=== PATIENT | female | born 1955 | race Caucasian/White ===

== ENCOUNTER 2024-05-16 13:40 | Emergency (ER) | payer MEDICARE, SELFPAY ==
[2024-05-16 13:42] VITALS: BP 104/56
[2024-05-16 14:16] VITALS: BMI 34.2
[2024-05-16 14:19] VITALS: BP 105/58
--- NOTE | 2024-05-16 14:25 | ED.GENMED ---
History of Present Illness
General
Chief Complaint: Swelling
Time Seen by Provider: 05/16/24 14:24
History of Present Illness
History of Present Illness:
HPI: The patient's main reason for visit is lower extremity edema that has been ongoing for months to years but has been worsening. This is now associated with some degree of shortness of breath however she relates some of the shortness of breath
related to a history of asthma. She does not necessarily describe orthopnea. She also reports some worsening abdominal discomfort but currently the abdominal discomfort is minimal. She has never had paracentesis in the past. She no longer drinks
alcohol
EXAM:
GENERAL: Well appearing in no distress
HEENT: Moist oral mucosa
CARDIOVASCULAR: No murmurs, normal heart rate, regular rhythm, No chest wall tenderness
PULMONARY: No respiratory distress, however she does have decreased breath sounds at the bases with some faint rales at the left base
ABDOMEN: Soft with no peritoneal signs, no tenderness, borderline fluid wave on examination
NEUROLOGIC: Excellent strength all extremities, no coordination deficits
PSYCHIATRIC: Appropriate mental status, normal insight and judgement
EXTREMITIES: Nontender, 3+ bilateral lower extremity edema, moves all extremities equally
SKIN: No rash, no lesions
TIME OF INITIAL ENCOUNTER: 2:30 PM
NUMBER AND COMPLEXITY OF PROBLEMS ADDRESSED AT THE ENCOUNTER
� Chronic conditions affecting care: Asthma, cirrhosis, high blood pressure, GERD
� Acute Exacerbation and/or Progression of Chronic Illness: This is an acute problem
� Differential Diagnosis includes: Progression of alcoholic cirrhosis, CHF, anemia, hepatic encephalopathy however the patient does not currently appear encephalopathic on exam
AMOUNT AND/OR COMPLEXITY OF DATA TO BE REVIEWED AND ANALYZED
� I performed an independent evaluation of and my interpretation is:
EKG:
CT:
X-rays: Chest x-ray unremarkable
Laboratory Studies: CBC unremarkable, INR 1.45, potassium 3.2, total bili 2.9 which is higher than recent�total bili in 2017 peaked at 4.9, BNP not consistent with CHF
Other:
� Review of other/old records: In 2017, the patient was admitted for alcoholic cirrhosis and later in the year she had a endoscopy that showed gastric varices
� Clinical information was obtained by an independent historian: I spoke to the daughter at bedside
� Prescriptions/Medications Considered but not given:
� Further testing considered but not performed:
RISK OF COMPLICATIONS AND/OR MORBIDITY OR MORTALITY OF PATIENT MANAGEMENT
� Social determinants of health affecting care: Lives at home
� Discussion with other providers: I discussed case with Dr. Urban and agrees with switching from hydrochlorothiazide to spironolactone and close outpatient follow-up.
� Escalation of care including admission/observation vs risk of discharge considered: The patient has history of alcoholic cirrhosis but is never had a paracentesis in the past. He presents with lower extremity edema along with
some degree of shortness of breath. She does not take furosemide or spironolactone but does take hydrochlorothiazide but did not take it today.
Past History
Past History
ED Past Medical History: Asthma, HTN and Psychiatric (Anxiety with history of anxiety attacks)
ED Past Surgical History: (History of 3 C-sections)
Social History
Tobacco: Non-smoker
Alcohol: None
Drug: None
Personal:
Living: with family
Employment: Employed
Phy Exam
Physical Exam
Physical Exam:
See HPI
Scores
Heart Failure Risk
Heart Failure Risk Score: Not Applicable
Course
Orders/Labs/Results
Orders:
Orders
05/16/24 14:24
Ammonia Urgent
BNP [NT-proBNP] Urgent
Complete Blood Count/With Diff Urgent
Comprehensive Metabolic Panel Urgent
PTT Urgent
Prothrombin Time Urgent
05/16/24 14:32
CR Chest - 2 Views Urgent
Comment:
Reason For Exam: sob
US Abdomen Complete/Upper Urgent
Comment:
Reason For Exam: swelling cirrhosis, eval liver and for ascites
05/16/24 16:10
Potassium Chloride Powder [Klor-Con] 40 meq PO NOW STA
05/16/24 16:29
Spironolactone [Aldactone] 25 mg PO NOW STA
Abnormal Lab Results
05/16/24
14:24
RBC 3.76 L 10^6/uL
(4.20-5.40)
Hct 35.8 L %
(37.0-47.0)
MCH 33.2 H pg
(27.0-31.0)
Absolute Monos (auto) 1.1 H 10^3/uL
(0.1-0.6)
Lymphocytes % 17.5 L %
(20.5-51.1)
Monocytes % 14.7 H %
(1.7-9.3)
PT 17.4 H Sec
(11.4-14.6)
APTT 37.7 H Sec
(23.4-35.0)
Potassium 3.2 L mmol/L
(3.5-5.1)
Carbon Dioxide 33 H mmol/L
(22-30)
Glucose 113 H mg/dl
(70-99)
Total Bilirubin 2.9 H mg/dl
(0.2-1.3)
AST 93 H U/L
(14-36)
Ammonia 82 H umol/L
(9-30)
Albumin 3.0 L g/dl
(3.5-5.0)
05/16/24 14:24
05/16/24 14:24
Vital Signs
Initial and Last Documented VS:
Initial Vital Signs
Temp Pulse Resp BP Pulse Ox
99.1 F 80 18 104/56 97
05/16/24 13:42 05/16/24 13:42 05/16/24 13:42 05/16/24 13:42 05/16/24 13:42
Last Documented Vital Signs
Temp Pulse Resp BP Pulse Ox
99.1 F 73 16 122/59 97
05/16/24 13:42 05/16/24 15:45 05/16/24 15:45 05/16/24 15:42 05/16/24 15:45
*Critical Care Note
Total Time (30-74mins, 75-104mins- exclusive of procedures): Not Applicable
ED Attending Note
-
Portions of this chart may have been created with voice recognition software.� Occasional wrong word or��sound alike� substitutions may have occurred due to the inherent limitations of voice recognition software.
Discharge Plan
Departure
Patient Disposition: Home (Routine Discharge)
Date of Disposition: 05/16/24
Time of Disposition: 16:30
Patient with high blood pressure during this ER visit?: Yes
Discharge Problem:
Cirrhosis
Instructions: Cirrhosis, Dependent Edema (DC), Diet for Cirrhosis
Prescriptions:
New
spironolactone 25 mg tablet
25 mg PO DAILY Qty: 30 0RF
No Action
famotidine 20 MG tablet
20 mg PO DAILYPRN PRN (Reason: indigestion)
hydrochlorothiazide 25 MG tablet
25 mg PO DAILY
albuterol sulfate 1 PUFF HFA aerosol inhaler
2 puff inhalation R Q4HPRN PRN (Reason: SOB)
loratadine 10 MG tablet
10 mg PO DAILYPRN PRN (Reason: allergies)
thiamine HCl (vitamin B1) 100 MG tablet
100 mg PO DAILY 0RF
folic acid 0.4 MG tablet
0.4 mg PO DAILY 0RF
nadolol 20 MG tablet
20 mg PO DAILY
amoxicillin-pot clavulanate 1 TABLET tablet
1 tab PO Q12 5 Days Qty: 10 0RF
Referrals:
Marilu Ennis CRNP [Family Provider] -
Loc Camara MD [Active] - Follow up in 2-3 days
Activity Restrictions/Additional Instructions:
The total bilirubin today is 2.9 which is higher than it was in 202. However it is not as high as it was when it was over 4 in 2017. Your ammonia level is high at 82 however you do not appear to be confused. Your albumin level is low (protein
level). Your INR is 1.45 which indicates worsening liver function. I spoke to Dr. Urban, the on-call GI doctor�please plan appointment to see Dr. Camara. Stop the hydrochlorothiazide and start spironolactone.
Interventions
Interventions:
*Risk Screen - Suicide Last Done: 05/16/24 14:16
*General Assessment Last Done: 05/16/24 14:16
*Neglect/Abuse Screening Last Done: 05/16/24 14:16
ED- Fall Risk Assessment Last Done: 05/16/24 14:19
*ED COVID-19 Vaccine History Last Done: 05/16/24 14:16
ED- Cardiac Assessment Last Done: 05/16/24 15:55
ED- Pulmonary Assessment Last Done: 05/16/24 15:55
ED-Skin Assessment Last Done: 05/16/24 15:55
Discharge Date and Time
Print Language: YORUBA
[2024-05-16 14:38] LABS: % Basophils 0.9 % (0-2); % Eosinophils 5.5 % (0-6); % Immature Granulocytes 0.4 % (0-0.5); % Lymphocytes 17.5 % (20.5-51.1); % Monocytes 14.7 % (1.7-9.3); Absolute Basophils 0.1 10^3/uL (0-0.2); Absolute Eosinophils 0.4 10^3/uL (0-0.7); Absolute Lymphocytes 1.4 10^3/uL (1.2-3.4); Absolute Monocytes 1.1 10^3/uL (0.1-0.6); Absolute Neutrophils 4.7 10^3/uL (1.4-6.5); Hematocrit 35.8 % (37.0-47.0); Hemoglobin 12.5 g/dL (12.0-16.0); Mean Corp Hgb Conc. 34.9 g/dL (33.0-37.0); Mean Corpuscular Hgb 33.2 pg (27.0-31.0); Mean Corpuscular Volume 95.2 fL (81.0-99.0); Mean Platelet Volume 9.4 fL (7.4-10.4); Nucleated Red Blood Cells % 0 %; Platelet Count 146 10^3/uL (130-400); Red Blood Cell Count 3.76 10^6/uL (4.20-5.40); Red Cell Dist. Width 13.1 % (11.5-14.5); White Blood Cell Count 7.8 10^3/uL (4.8-10.8)
[2024-05-16 14:48] LABS: INR 1.45; PT 17.4 Sec (11.4-14.6)
[2024-05-16 14:49] LABS: APTT 37.7 Sec (23.4-35.0)
[2024-05-16 14:51] LABS: Ammonia 82 umol/L (9-30)
[2024-05-16 14:52] LABS: ALT (SGPT) 34 U/L (0-35); AST (SGOT) 93 U/L (14-36); Alkaline Phosphatase 120 U/L (38-126); Blood Urea Nitrogen 12 mg/dl (7-17); Calcium 8.7 mg/dl (8.4-10.2); Carbon Dioxide 33 mmol/L (22-30); Chloride 98 mmol/L (98-107); Estimated Creatinine Clearance 91 ml/min; Glucose 113 mg/dl (70-99); Potassium 3.2 mmol/L (3.5-5.1); Sodium 137 mmol/L (135-145); Total Bilirubin 2.9 mg/dl (0.2-1.3); Total Protein 6.7 g/dl (6.3-8.2); eGFR > 60.00
[2024-05-16 15:00] LABS: NT-proBNP 436 pg/ml
[2024-05-16 15:42] VITALS: BP 122/59
[2024-05-16 16:00] VITALS: BP 115/52
[2024-05-16] MEDS: ALDACTONE 25 MG PO (16:56)
[2024-05-16] MEDS: KLOR-CON 40 MEQ PO (16:57)
== END 2024-05-16 17:05 | disposition home or self-care (01) ==
LOC: EMR 13:40
PROVIDERS: Student in an Organized Health Care Education/Training Program; EMERGENCY PHYSICIAN Emergency Medicine; FAMILY PHYSICIAN Nurse Practitioner Family
DX: K70.31 Alcoholic cirrhosis of liver with ascites (principal); I10 Essential (primary) hypertension
CPT/HCPCS: 99285; 71046; 76700; 80053; 82140; 83880; 85025; 85610; 85730

== ENCOUNTER 2024-06-19 13:42 | Inpatient (IN) | payer MEDICARE, SELFPAY ==
[2024-06-19] VITALS (44 sets, daily range): BP systolic 69–139; BP diastolic 36–74; BMI 35.1
[2024-06-19 09:53] LABS: % Basophils 0.7 % (0-2); % Eosinophils 2.6 % (0-6); % Immature Granulocytes 0.9 % (0-0.5); % Monocytes 10.4 % (1.7-9.3); % Neutrophils 65.4 % (42.2-75.2); Absolute Eosinophils 0.2 10^3/uL (0-0.7); Absolute Immature Granulocytes 0.1 10^3/uL (0-0.05); Absolute Lymphocytes 1.2 10^3/uL (1.2-3.4); Absolute Monocytes 0.6 10^3/uL (0.1-0.6); Absolute Neutrophils 3.8 10^3/uL (1.4-6.5); Hematocrit 32.2 % (37.0-47.0); Hemoglobin 11.4 g/dL (12.0-16.0); Mean Corp Hgb Conc. 35.4 g/dL (33.0-37.0); Mean Corpuscular Hgb 31.3 pg (27.0-31.0); Mean Corpuscular Volume 88.5 fL (81.0-99.0); Mean Platelet Volume 9.2 fL (7.4-10.4); Nucleated Red Blood Cells % 0 %; Platelet Count 246 10^3/uL (130-400); Red Blood Cell Count 3.64 10^6/uL (4.20-5.40); Red Cell Dist. Width 14.6 % (11.5-14.5); White Blood Cell Count 5.9 10^3/uL (4.8-10.8)
[2024-06-19 10:05] LABS: Ammonia 22 umol/L (9-30)
[2024-06-19 10:06] LABS: ALT (SGPT) 24 U/L (0-35); AST (SGOT) 49 U/L (14-36); Albumin 2.6 g/dl (3.5-5.0); Alkaline Phosphatase 102 U/L (38-126); Blood Urea Nitrogen 18 mg/dl (7-17); Calcium 8.2 mg/dl (8.4-10.2); Carbon Dioxide 24 mmol/L (22-30); Chloride 93 mmol/L (98-107); Estimated Creatinine Clearance 69 ml/min; Glucose 96 mg/dl (70-99); Potassium 4.9 mmol/L (3.5-5.1); Sodium 129 mmol/L (135-145); Total Bilirubin 5.4 mg/dl (0.2-1.3); Total Protein 6.7 g/dl (6.3-8.2); eGFR > 60.00
[2024-06-19 10:20] LABS: Lipase 27 U/L (23-300)
--- NOTE | 2024-06-19 10:35 | EDRN ---
With help of Tika Nguyễn pt repositioned higher on stretcher, tachypneic w/ POX 92% on RA. Tika Nguyễn PRODUCTION LINE TECHNICIAN requested pt to be placed on oxygen at 2lpm at this time.
[2024-06-19] MEDS: DILAUDID 0.5 MG IV (10:42)
--- NOTE | 2024-06-19 10:45 | EDRN ---
Pt placed on bedpan to void at this time.
--- NOTE | 2024-06-19 12:08 | ED.GENMED ---
History of Present Illness
General
Chief Complaint: Abdominal Pain
Source: patient and family
Exam Limitations: none
Time Seen by Provider: 06/19/24 09:33
Nursing documentation reviewed up to this point in time: agreed with
History of Present Illness
History of Present Illness:
Patient with history of liver cirrhosis, presents to ED secondary to worsening abdominal pain x 3 weeks, worse over the past 24 hours. Patient has had abdominal swelling, which also has worsened despite taking medications as an outpatient. Denies
fever or chills. Abdominal pain described as pressure, nonradiating, without any alleviating or exacerbating factors. Denies nausea, vomiting, or diarrhea. Denies recent change in medications or diet. Denies trauma. Patient also reports ongoing
leg swelling as well as shortness of breath.
Past History
Past History
ED Past Medical History: Asthma, HTN and Psychiatric (Anxiety with history of anxiety attacks)
ED Past Surgical History: (History of 3 C-sections)
Social History
Tobacco: Non-smoker
Alcohol: None
Drug: None
Personal:
Living: with family
Employment: Employed
Review of Systems
Review of Systems
Allergies reviewed?: Yes
Constitutional: Reports no symptoms; Denies fever
EENT: Reports no symptoms
Respiratory: Reports trouble breathing; Denies cough
Cardiac: Reports no symptoms
ABD/GI: Reports abdominal pain; Denies nausea, vomiting or diarrhea
Musculoskeletal: Reports edema
Skin: Reports no symptoms
Neurological: Reports no symptoms
Phy Exam
Physical Exam
Physical Exam:
Physical Exam
General: mild distress, not acutely ill. obese. afebrile.
Head: nc/at. eomi
Neck: supple. no meningeal signs.
Heart: s1/s2 regular rate and rhythm, no murmur. equal radial pulses.
Lungs: no acute respiratory distress. clear bilaterally
Abdomen: normal bowel sounds. diffuse swelling with mild tenderness to palpation. no rebound/guarding.
Neuro: alert and oriented. no focal neurological deficits
Skin: no rash
Psychiatric: well kept. interactive and cooperative
Extremities: LE edema, nonpitting. no calf tenderness.
Course
Orders/Labs/Results
Orders:
Orders
06/19/24 09:40
PT/INR [Prothrombin Time] Urgent
06/19/24 09:42
Ammonia Urgent
Complete Blood Count/With Diff Urgent
Comprehensive Metabolic Panel Urgent
Lipase Urgent
06/19/24 09:53
HYDROmorphone [Dilaudid] 0.5 mg IV NOW STA
06/19/24 10:53
CT Abd/pelvis W Iv Cont Urgent
Comment:
Reason For Exam: LLQ pain
06/19/24 12:07
Piperacillin/Tazo 3.375 Gram [Zosyn] 3.375 gram in 50 ml IV NOW
06/19/24 12:25
0.9% Sodium Chloride 250 ml [Nss] 250 ml IV BOLUS
06/19/24 12:53
GASTROINTESTINAL CONSULT Routine
Consulting Provider: Rohit Pineda
Was physician already notified: Yes
06/19/24 13:00
Admit/Transfer Patient As Directed
Co-Sign Provider:
Level of Care: Inpatient admission
Assign to:: ICU
Physician / Group: Htay
Diagnosis: Ascites, Colitis vs SBP
Reason for Hospitalization: IV abx, Paracentesis, GI Consult
Expected length of stay greater than two midnights?: Yes
ELOS- Estimated Length of Stay in days: 3
I certify the patient meets the requirements for IP care: Yes
PRN Pain Medication Management As Directed
May give lesser potent ordered pain med per pt: Yes
preference::
Protocol:: Medication orders for pain may be administered in a
manner that supports deferring to patient preference
when the pt is:
- Requesting an ordered lesser potent pain medication.
Least to most potent pain medications are defined
as: acetaminophen < NSAID < tramadol < opioids
(morphine, oxycodone, hydromorphone).
- Requesting a lesser dose of the same medication IF
ORDERED.
- Requesting a less intrusive route of administration
if both routes are prescribed by the provider (PO <
IV).
06/19/24 13:01
Urinalysis Routine
Urine Osmolality Random [Osmolality, Random Urine] Urgent
Urine Sodium Urgent
06/19/24 13:03
Code Status As Directed
Resuscitation Status: Full Code
06/19/24 Dinner
Full Liquids
Fluid Restriction: 1440 mL/day (48 oz)
06/19/24 17:14
HYDROmorphone [Dilaudid] 0.25 mg IV Q3HPRN PRN
Ipratropium/Albuterol Sulfate [Duoneb] 3 ml INH R Q4HPRN PRN
Ondansetron Injectable [Zofran] 4 mg IV Q6HPRN PRN
Piperacillin/Tazo 3.375 Gram [Zosyn] 3.375 gram in 50 ml IV Q6H
06/19/24 17:14
IRAD CONSULT Routine
Consulting Provider: Issa Howard
Was physician already notified: Yes
Reason for Consult/Procedure: Paracentesis
Acknowledgement that appropriate orders are entered: Yes
Body Fluid Albumin Routine
Fluid Source: Peritoneal (Ascites)
Body Fluid Amylase Routine
Fluid Source: Peritoneal (Ascites)
Body Fluid Cell Count Routine
What is the Body Fluid: peritoneal fluid
Comment: post procedure
Body Fluid LDH Routine
Fluid Source: Peritoneal (Ascites)
Body Fluid Protein Routine
Fluid Source: Peritoneal (Ascites)
Fluid Culture with Gram Stain Routine
INDRA Source: Peritoneal Fluid
Specimen Description:
Comment: Post Procedure
Activity As Directed
Activity Level: Out of Bed- Chair
Foot pumps [Venous Foot Pumps] As Directed
Location: Bilateral feet
I&O [Intake/ Output] As Directed
Frequency: q12h
Notify MD As Directed
Notify physician if: Notify GI provider solution engineer of volume removed when paracentesis complete.
Vital Signs As Directed
Frequency: Per unit guidelines
Weight As Directed
Frequency: Daily
IRAD Cytology Routine
Source: Peritoneal Fluid
Clinical Impression: Cirrhosis
Ot Eval And Treat Routine
Pt Eval And Treat Routine
Activity Level: Out of Bed-Early Mobility
DX Deep Vein Thrombosis Video Routine
06/20/24 06:00
Ammonia IN AM
Complete Blood Count/No Diff IN AM
Comprehensive Metabolic Panel IN AM
Magnesium IN AM
06/20/24 08:00
Pantoprazole [Protonix] 40 mg PO DAILY
Spironolactone [Aldactone] 50 mg PO DAILY
smtxiyebsbz-somazdkpr-siqkkptn [Trelegy Ellipta] 1 inh INH DAILY
lactulose 10 grams PO DAILY
06/22/24 11:00
DC Protocol for Telemetry ONCE
Abnormal Lab Results
06/19/24 06/19/24
09:40 09:42
RBC 3.64 L 10^6/uL
(4.20-5.40)
Hgb 11.4 L g/dL
(12.0-16.0)
Hct 32.2 L %
(37.0-47.0)
MCH 31.3 H pg
(27.0-31.0)
RDW 14.6 H %
(11.5-14.5)
Abs Immat Gran (auto) 0.1 H 10^3/uL
(0-0.05)
Immature Gran % 0.9 H %
(0-0.5)
Lymphocytes % 20.0 L %
(20.5-51.1)
Monocytes % 10.4 H %
(1.7-9.3)
PT 20.9 H Sec
(11.4-14.6)
Sodium 129 L mmol/L
(135-145)
Chloride 93 L mmol/L
(98-107)
BUN 18 H mg/dl
(7-17)
Calcium 8.2 L mg/dl
(8.4-10.2)
Total Bilirubin 5.4 H mg/dl
(0.2-1.3)
AST 49 H U/L
(14-36)
Albumin 2.6 L g/dl
(3.5-5.0)
06/19/24 09:42
06/19/24 09:42
Vital Signs
Initial and Last Documented VS:
Initial Vital Signs
Temp Pulse Resp BP Pulse Ox
98.3 F 93 20 139/57 93
06/19/24 09:34 06/19/24 09:34 06/19/24 09:34 06/19/24 09:34 06/19/24 09:34
Last Documented Vital Signs
Temp Pulse Resp BP Pulse Ox
99.7 F 89 16 96/74 98
06/19/24 17:16 06/19/24 16:45 06/19/24 16:45 06/19/24 16:45 06/19/24 16:45
MDM/Problems Addressed
MDM/Problems Addressed:
CT abdomen pelvis report reviewed, concerning for colitis along with ventral hernia, as well as ascites. Patient will be given IV antibiotic, IV Zosyn, but may benefit from diagnostic versus therapeutic paracentesis.
During treatment in ED, patient noted to become hypotensive, with minimal improvement after IV fluid bolus administration. As such, after discussion with admitting hospitalist, decision made to start patient on Levophed infusion.
Critical care statement: A total of 40 minutes of critical care time was provided for this patient. This includes management of unstable vital signs, evaluation of the patient at bedside, reviewing the patient's pertinent medical records, review of
old EKGs and review of pertinent medical records. This time with separate from time utilized to perform the aforementioned documented procedures
*Critical Care Note
Total Time (30-74mins, 75-104mins- exclusive of procedures): 40 min
ED Attending Note
-
Portions of this chart may have been created with voice recognition software.� Occasional wrong word or��sound alike� substitutions may have occurred due to the inherent limitations of voice recognition software.
Discharge Plan
Departure
Patient Disposition: Admit
Date of Disposition: 06/19/24
Time of Disposition: 12:11
Admit to: IMU
Presentation/result/management discussed w/ accepting MD/DO: Hospitalist
Condition: Fair
Discharge Problem:
Colitis, Ventral hernia, Ascites
Interventions
Interventions:
*Risk Screen - Suicide Last Done: 06/19/24 09:34
*General Assessment Last Done: 06/19/24 09:34
*Neglect/Abuse Screening Last Done: 06/19/24 09:34
ED- Fall Risk Assessment Last Done: 06/19/24 09:34
*ED COVID-19 Vaccine History Last Done: 06/19/24 09:34
*Nursing Disposition Last Done: 06/19/24 17:07
BN-Rlzewj-Iwqdxmgzlp Assessment Last Done: 06/19/24 09:34
Discharge Date and Time
Discharge Date/Time: 06/19/24 17:07
[2024-06-19] MEDS: ZOSYN 50 IV ×2 (12:22→19:58)
[2024-06-19] MEDS: NSS 250 IV ×2 (12:28→13:47)
--- NOTE | 2024-06-19 13:00 | HPS.HSE ---
Addendum entered and electronically signed by Glynn Viveros MD 06/19/24 14:13:
I saw and examined the patient.
The LOGISTICS TECHNICIAN or PA's note was reviewed and I agree with the note.
Comment:
refer to update note
Original Note:
Family Physician
-
Family Physician: Elbert Sanches
Chief Complaint
-
Abdominal Pain
History of Present Illness
Patient is a 69 y/o female past medical history cirrhosis who present with worsening abdominal pain. Patient is sedated during my evaluation following Dilaudid given in the emergency department. Additional history is obtained from patient's
family at the bedside. Patient has been complaining of increasing lower extremity edema, and abdominal swelling with some abdominal pain over the past few months. She was seen at the ED about a month ago, and since then she has seen her GI and
Liver specialists. In the interim she has been started on Lactulose for possible hepatic encephalopathy given intermittent confusion, and Lasix for increasing swelling. Family has noted improvement in the lower extremity edema with the Lasix.
Patient noted significant worsening of her abdominal pain to the point she was unable to ambulate today, and family convinced her to come to the emergency department for evaluation. Family has noted decreased appetite, and notes she appears short of
breath on occasion. There are no reports of fevers, sweats or chills.
Medical History
Past Medical History
Past Medical History: Reports Other
Additional Past Medical History:
Alcoholic Cirrhosis
Gastric Varies / Portal Hypertensive Gastropathy
Asthma
Past Surgical History: Reports
Social History
Tobacco: Former Smoker
Alcohol: Former (Quit in 2017 when she was diagnosed with cirrhosis)
Family History
Family History: Not pertinent
Allergies / Home Medications
Allergies reflects when Allergies were last updated in [facility].
Home Medications with original date entered in [facility]
Allergy/Medication List:
Allergies
Allergy/AdvReac Type Severity Reaction Status Date / Time
codeine Allergy Itching Verified 06/19/24 09:40
latex Allergy Itching Verified 06/19/24 09:40
morphine Allergy Itching Verified 06/19/24 09:40
Home Medications
albuterol sulfate 90 mcg/actuation aerosol inhaler 2 puff inhalation R Q4HPRN PRN SOB 02/10/17
nadolol 20 mg tablet 20 mg PO DAILY 04/11/19
fluticasone fur. 200 mcg-umeclid 62.5 mcg-vilant 25 mcg inhalat.powder (Trelegy Ellipta) 1 inh inhalation DAILY 06/19/24
furosemide 20 mg tablet 20 mg PO DAILY 06/19/24
lactulose 10 gram/15 mL (15 mL) oral solution 10 g PO DAILY 06/19/24
spironolactone 50 mg tablet 50 mg PO DAILY 06/19/24
Review of Systems
-
Unable to obtain full review of systems at this time due to: Patient Non-verbal
Physical Exam
Vital Signs
Vital Signs
Temp Pulse Resp BP Pulse Ox
98.3 F 93 12 93/55 98
06/19/24 09:34 06/19/24 12:20 06/19/24 12:20 06/19/24 12:04 06/19/24 12:20
Physical Exam
General: Well Developed and Well Nourished
HEENT: Moist mucous membranes, Oxygen (Nasal Cannula) and Other (Icteric)
Respiratory: Clear and Non Labored Respirations
Cardiac: S1/S2 and Regular Rhythm; No Tachycardia
GI: Soft, Tender (Mild throughout without rebound or guarding (Patient given Dilaudid just prior to my evaluation)) and Other (Significant Hepatosplenomegaly )
Musculoskeletal: No Clubbing, No Cyanosis and Other (+4 pitting edema bilateral lower extremity)
Skin: Warm, Dry and Jaundice
Neuro: Sedated (Patient opens eyes briefly to name; Moves upper extremities but unable to participate in neurologic evaluation following Dilaudid administration)
Psych: Calm
Laboratory Results
-
06/19/24 09:42
06/19/24 09:42
Laboratory Results
Total Bilirubin 5.4 mg/dl (0.2-1.3) H 06/19/24 09:42
AST 49 U/L (14-36) H 06/19/24 09:42
ALT 24 U/L (0-35) 06/19/24 09:42
Alkaline Phosphatase 102 U/L (38-126) 06/19/24 09:42
Lipase 27 U/L (23-300) 06/19/24 09:42
Abd/Pelvis CT Scan:
Cirrhotic morphology with evidence of portal hypertension and moderate volume ascites.
Cholelithiasis. There is gallbladder wall thickening which is likely secondary to chronic liver disease.
Colonic diverticulosis. There is questionable wall thickening along the sigmoid colon and proximal ascending colon which may represent colitis.
Complex ventral hernia containing fat and ascites.
Data Reviewed
-
CT Scan: Report Reviewed by me
Lab Data: Labs Reviewed by me
Impression/Plan
-
Worsening Abdominal Pain and Distention, possible Spontaneous Bacterial Peritonitis
-Consult GI
-Consult IR for Paracentesis
-Continue Zosyn
Hyponatremia, suspect hypervolemic hyponatremia
-Continue fluid restriction
-Check urine sodium and urine osmo
-Hold Lasix for now in setting of low blood pressure
-Continue spironolactone
Alcohol Cirrhosis
-MELD-Na has increased from 15 last month to 25 today
-Family notes they have began discussions about possible transplant
Hepatic Encephalopathy
-Ammonia level currently within normal range
-Continue Lactulose
Gastric Varies / Portal Hypertensive Gastropathy
-Hold nadolol due to low blood pressure
-Continue Protonix
DVT proph: SCDs
Code Status: Full Code
[2024-06-19 13:06] LABS: INR 1.82; PT 20.9 Sec (11.4-14.6)
--- NOTE | 2024-06-19 13:12 | W.PN.UPDATE ---
Addendum entered and electronically signed by Glynn Viveros MD 06/19/24 13:36:
INR 1.8 = MELD 25 ( prior MELD�was 16)
NEG flapping tremor: NH3 23
- without evidence of hepatic encephalopathy but at risk
- coagulopathy is significant for synthetic dysfunction
Original Note:
Update Note
Progress Note Update
This note serves as an addendum to the H&P by [employer]rix architect SIOBHAN Nallely WALTERS,
HPI
69F HX Hx alcoholic liver cirrhosis with portal hypertensive gastropathy presenting with worsening abd pain w abdominal swelling
Reviewed VS: Afebrile . Hypotensive 93/55 HR low 90s POx 93 on RA. 97 on 2L NCO2
PE
Gen: sleepy s/p Dilaudid , arousable, not toxic
HEENT: icteric sclera
Neck: supple
Lungs: clear
Cor: Hypotensive , RRR S1 S2
Abdomen: tendr mildly distended abdomen, NRT, NG
REGENERATION OPERATOR: sleepy
MS: b/l Dede edema plus 4
Psych: limited s/p Dilaudid
Data
Nl WCC
Hgb 11.5; 12,5 on 05/16/24
Nl platelet
Na 129. 137 on 05/16/24
Cl 93
BUN 18
nl eGFR
NH3 22
CT Abd/pelvis W Iv Cont
1.Cirrhotic morphology with evidence of portal hypertension and moderate volume ascites.
2. Cholelithiasis. There is gallbladder wall thickening which is likely secondary to chronic liver disease.
3. Colonic diverticulosis. There is questionable wall thickening along the sigmoid colon and proximal ascending colon which may represent colitis.
4. Complex ventral hernia containing fat and ascites.
05/30/22 EGD
- Normal esophagus.
- Type 1 isolated gastric varices (IGV1, varices located in the fundus), without bleeding.
- Portal hypertensive gastropathy.
- Normal examined duodenum.
- No specimens collected.
ASSESSMENT & PLAN
Worsening abdominal pain and abdominal distension
DDX: concerning for SBP with worsening symptomatic ascites,
CT AP: possible colitis with ventral hernia.
Underlying Hx alcoholic liver cirrhosis with Portal hypertensive gastropathy.
Known Type 1 isolated gastric varices (IGV1, varices located in the fundus), without bleeding.
- cont. empiric Zosyn for questionable colitis at risk for SBP
- cont Spironolactone and nadolol
- c/w CORONER TECHNICIAN lactulose -switch to daily in place of PRN
- clear diet for now
- repeat NH3 level in AM
- Dx-tic Rxtic paracentesis
- GI consult
- IR consult
Hypotension s/p 0.25 of Dilaudid did
- Hold Frusemide and Nadolol
- c/w Spironolactone with hold index forSBP < 100
- f/u BP
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
Fluid overload due to cirrhosis
- Hold Frusemide
- cont Spironolactone with hold index for SBP < 100
- FR 48 Oz
- trend nA
Complex ventral hernia containing fat and ascites.
DVT Px: SCD
Code: full code
IMU
[2024-06-19] MEDS: LEVOPHED 250 IV ×4 (14:19→23:50)
--- NOTE | 2024-06-19 17:51 | CON.INTV ---
Consultation
Consultation Request
Date/Time Consultation Requested: 06/19/2024
Date/Time Consultation Performed: 06/19/2024
Requesting Provider: Dr. Viveros
Performing Provider: Dr. Theron Lock
Reason for Consultation: Septic shock
Medical History
-
History of Present Illness:
69-year-old woman with past medical history significant for cirrhosis who presented with worsening abdominal pain. She did receive some narcotics in the emergency room due to her pain. Patient has been complaining of worsening lower extremity
edema and abdominal swelling over the past few months.
She follows up with GI and hematology.
Recently started on diuretics with some improvement in lower extremity swelling.
Presented to the emergency room today at the insistence of the family.
Patient developed hypotension, unresponsive to IV fluid resuscitation. On vasopressors at high doses.
Past Medical History
Past Medical History: Other (See assessment and plan )
Social History
Tobacco: Former Smoker
Alcohol: Former (Quit in 2016 when she was diagnosed with cirrhosis)
Family History
Family History: Unable to Obtain
Allergies / Home Medications
Allergies
Allergy/AdvReac Type Severity Reaction Status Date / Time
codeine Allergy Itching Verified 06/19/24 09:40
latex Allergy Itching Verified 06/19/24 09:40
morphine Allergy Itching Verified 06/19/24 09:40
Home Medications
�Medication �Instructions �Recorded �Confirmed �Last Taken �Type
albuterol sulfate 90 mcg/actuation 2 puff inhalation R Q4HPRN PRN SOB 02/10/17 06/19/24 04/10/19 History
aerosol inhaler
nadolol 20 mg tablet 20 mg PO DAILY CIRRHOSIS 04/11/19 06/19/24 04/10/19 History
fluticasone fur. 200 mcg-umeclid 1 inh inhalation DAILY 06/19/24 06/19/24 Unknown History
62.5 mcg-vilant 25 mcg Lung/Breathing Issues
inhalat.powder (Trelegy Ellipta)
furosemide 20 mg tablet 20 mg PO DAILY Fluid 06/19/24 06/19/24 Unknown History
Retention/Swelling
lactulose 10 gram/15 mL (15 mL) 10 g PO DAILY CIRRHOSIS 06/19/24 06/19/24 Unknown History
oral solution
omeprazole 20 mg tablet,delayed 20 mg PO DAILY Gastrointestinal 06/19/24 06/19/24 Unknown History
release Issue
spironolactone 50 mg tablet 50 mg PO DAILY Fluid 06/19/24 06/19/24 Unknown History
Retention/Swelling
Review of Systems
-
Unable to Obtain full review of systems at this time due to: Acuity
Vitals / Labs / Diagnostic Testing
Vital Signs
Temp Pulse Resp BP Pulse Ox
99.7 F 89 16 96/74 98
06/19/24 17:16 06/19/24 16:45 06/19/24 16:45 06/19/24 16:45 06/19/24 16:45
Lab Data
06/19/24 09:42
06/19/24 09:42
Laboratory Results
06/19/24
09:40
PT 20.9 H
INR 1.82
Diagnostic Testing:
Physical Exam
-
HEENT: Normocephalic
Cardiovascular: S1/S2 and Peripheral Edema (2+)
Respiratory: Non-Labored Respirations
GI: Distended (Firm, ascites, ventral hernia not tender) and Tender (Mildly tender)
Neurology: Other (Somnolent )
Skin: Dry and Other
General: Respiratory Distress (Mild)
Assessment
-
Septic shock
Worsening abdominal distention/abdominal pain
Possible spontaneous bacterial peritonitis vs ? colitis
CT abdomen pelvis 06/19/2024:Cirrhotic morphology with evidence of portal hypertension and moderate volume ascites.
Cholelithiasis. There is gallbladder wall thickening which is likely secondary to chronic liver disease.
Colonic diverticulosis. There is questionable wall thickening along the sigmoid colon and proximal ascending colon which may represent colitis.
Complex ventral hernia containing fat and ascites.
Hyponatremia
Conditions present prior admission:
Alcoholic cirrhosis since 2017
Portal hypertensive gastropathy
Hypervolemic hyponatremia
Ventral hernia history of asthma only follows up with primary care
Former alcohol use quit in 2017
Assessment and plan:
Patient critically ill, requiring vasopressor, somewhat somnolent after receiving Dilaudid in the emergency room for abdominal pain.
-
Shock: Multiple mechanism distributive/septic
Suspect spontaneous bacterial peritonitis
Doubt colitis-lack of diarrhea.
Currently on Levophed high doses
Will start Szr-Cjqeprnoux-qyrr try to transition to this pressor.
Obtain cortisol level
1 L of LR will be given now.
Place a Leger
Will place a PICC line
Arterial line may be needed
if remains hypotensive echocardiogram will be necessary.
-
Zosyn
Eventual paracentesis
Blood cultures
UA
Urine culture
Follow fever curve and leukocytosis
-
N.p.o.
Head of bed elevation
Hold diuretics
If able to tolerate orals restart lactulose tomorrow.
Continue PPI
-
Alcoholic liver cirrhosis-GI has been consulted
So far no evidence for hepatic encephalopathy
Somnolent but following commands. Slightly confused perhaps from ongoing infection as well as Dilaudid received in the emergency room.
Try to avoid sedatives.
-
History of asthma-not bronchospastic on exam
Shortness of breath likely related to worsening ascites.
As needed nebulizers for now
Okay to restart her inhalers if able to perform maneuver.
-
DVT prophylaxis-subcu lovenox
INR is 1.8
-
Dr. Lock discussed critical situation with patient and daughter at the bedside. Extensive discussion and explanation of current situation.
-
Critical care statement: A total of 85 minutes of critical care time was provided for this patient today. This includes management of unstable vital signs, evaluation of the patient at bedside, reviewing the patient's pertinent medical records
including ventilator settings, arterial blood gases, radiographs, microbiology, laboratory evaluations and discussion with primary team, critical care nursing, and respiratory therapy.
[2024-06-19 18:16] LABS: Lactic Acid 4.8 mmol/L (0.7-2.0)
[2024-06-19] MEDS: LR 1000 IV (18:30)
[2024-06-19 18:37] LABS: Urine Albumin Trace (Neg - Trace); Urine Bilirubin 2+ (Negative); Urine Character Clear (Clear); Urine Color Amber; Urine Glucose Negative (Negative); Urine Ketone Trace (Negative); Urine Leukocyte Trace (Negative); Urine Nitrite Positive (Negative); Urine Occult Blood Negative (Negative); Urine Specific Gravity 1.015 (<1.030); Urine Urobilinogen 3+ (Neg - 1+)
[2024-06-19 18:38] LABS: Osmolality Urine 440 mOsm/kg (300-900)
--- NOTE | 2024-06-19 18:56 | PTCARENOTE ---
Pt admitted at 1745 from ED for Ascites, Colitis vs Spont. bacterial peritonitis. Pt drowsy but oriented, occasionally mildly confused. Daughter at bedside. Hypotension continues with Levophed at 20mcg/min. NSR on monitor. 2L NC98%. Crackles in
bases. Purwick removed and straight cath performed for urine culture/UA. 75cc orange urine out to empty bladder. Distended ABD with hernia noted below umbilicus. Healing L arm skin tear noted, АННА. Skin appears jaundiced. 20g PIV in RAC with
Levophed, LR bolus initiated. RNs unable to obtain second PIV. PICC ordered. Blood cx, lactate drawn.
[2024-06-19 19:01] LABS: Urine Squamous Cell 0-2 /LPF (Few)
[2024-06-19 19:02] LABS: Urine Bacteria Few (Negative); Urine Red Blood Cell 0-2 /HPF (0-2)
[2024-06-19 19:03] LABS: Urine Sodium < 5 mmol/L (30-90)
--- NOTE | 2024-06-19 20:00 | PTCARENOTE ---
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 SR HR 80s, RAC 20, new L PICC WNL- awaiting CXR placement confirmation. Levo gtt infusing per work list, Arash to be added at pt continues to be hypotensive BP 70s. 2L NC Sat 98%.
POC discussed, care and plan ongoing at this time.
[2024-06-19] MEDS: NEO-SYNEPHRINE 250 IV (20:20)
[2024-06-19] MEDS: SYMBICORT 160/4.5 MCG INHALER INH (20:38)
[2024-06-19] MEDS: SYMBICORT 160/4.5 MCG INHALER 2 PUFF INH (20:43)
--- NOTE | 2024-06-19 21:32 | W.PN.UPDATE ---
Update Note
Progress Note Update
Procedure Note: Arterial Line�
� Right Wrist Arrow 20 (11/09)�
Diagnosis:��Sepsis
IV Line Comments: Uneventful Procedure�
Yvan's test completed pre-procedure: Yes�
A-Line Comments: Sterile technique as per standard protocol, Ultrasound guided insertion�
Functioning A-line in situ: Yes�
A-line Insertion Start Time:��2109
A-line in at:��2114
--- NOTE | 2024-06-19 21:51 | W.PN.SEPSIS ---
Sepsis
Vital Signs
Temp Pulse Resp BP Pulse Ox
99.7 F 88 17 84/66 97
06/19/24 17:16 06/19/24 18:15 06/19/24 18:15 06/19/24 18:15 06/19/24 18:15
Physical Exam
Physical Exam:
A focused exam was performed after fluid resuscitation.
Capillary Refill
Lower Extremity:
Scottie Time: Less than 3 sec
Pulse Evaluation
Bilateral Posterior Tibial:
Pulse Evaluation: Present
Additional Information
Patient on two pressors.
[2024-06-19 22:19] LABS: APTT 41.6 Sec (23.4-35.0); INR 2.31; PT 25.3 Sec (11.4-14.6)
[2024-06-19 22:24] LABS: Lactic Acid 6.4 mmol/L (0.7-2.0)
[2024-06-19] MEDS: LR 500 IV (22:27)
[2024-06-19] MEDS: DILAUDID 0.25 MG IV (23:20)
[2024-06-20] VITALS (7 sets, daily range): BP systolic 87–116; BP diastolic 34–74; BMI 36.6
[2024-06-20 00:13] LABS: Cortisol, Random 60.2 ug/dl
[2024-06-20] MEDS: FLEXBUMIN 100 IV ×3 (00:31→16:29)
[2024-06-20] MEDS: ZOSYN 50 IV ×2 (00:31→06:14)
[2024-06-20] MEDS: NEO-SYNEPHRINE 1% 260 MG IV ×2 (00:33→10:40)
[2024-06-20] MEDS: PITRESSIN 100 IV ×4 (00:33→22:18)
--- NOTE | 2024-06-20 00:45 | PTCARENOTE ---
pt maxed on Levo and Arash, Vaso gtt added, albumin infusing, pt mentation unchanged.
[2024-06-20] MEDS: LEVOPHED 250 IV ×6 (01:57→13:10)
[2024-06-20] MEDS: DILAUDID 0.25 MG IV ×3 (02:13→16:37)
[2024-06-20 02:15] LABS: Hematocrit 31.3 % (37.0-47.0); Hemoglobin 10.7 g/dL (12.0-16.0); Mean Corp Hgb Conc. 34.2 g/dL (33.0-37.0); Mean Corpuscular Hgb 30.7 pg (27.0-31.0); Mean Corpuscular Volume 89.7 fL (81.0-99.0); Platelet Count 241 10^3/uL (130-400); Red Blood Cell Count 3.49 10^6/uL (4.20-5.40); Red Cell Dist. Width 15.2 % (11.5-14.5)
[2024-06-20 02:23] LABS: Ammonia 93 umol/L (9-30)
[2024-06-20 02:46] LABS: ALT (SGPT) 64 U/L (0-35); AST (SGOT) 392 U/L (14-36); Albumin 2.6 g/dl (3.5-5.0); Alkaline Phosphatase 72 U/L (38-126); Blood Urea Nitrogen 19 mg/dl (7-17); Calcium 7.8 mg/dl (8.4-10.2); Carbon Dioxide 14 mmol/L (22-30); Chloride 94 mmol/L (98-107); Estimated Creatinine Clearance 34 ml/min; Glucose 116 mg/dl (70-99); Magnesium 1.7 mg/dl (1.6-2.3); Sodium 126 mmol/L (135-145); Total Protein 6.2 g/dl (6.3-8.2); eGFR 34.91
[2024-06-20] MEDS: DUPHALAC/CHRONULAC 20 GRAMS PO ×2 (03:59→08:32)
[2024-06-20] MEDS: CALCIUM CHLORIDE 10% SYRINGE 60 MG IV (03:59)
[2024-06-20] MEDS: SODIUM BICARBONATE 50 MEQ IV (04:00)
--- NOTE | 2024-06-20 06:28 | PTCARENOTE ---
BP labile t/o night, pt remains on 3 pressors- vega weaned down per work list. minimal UO from nuris will- BDoughertyNP aware. care ongoing.
[2024-06-20 06:45] LABS: Lactic Acid 6.4 mmol/L (0.7-2.0)
--- NOTE | 2024-06-20 07:35 | SUR.OPER ---
07:00 patient received in bed. PICC line : Purple Lumen : Levophed at 30mcg/113ml; Arash 125mcg/18.8; Vasopressing 0.04/12/ml ; White lumen ; KVO RT PICC line DL dressing intact dry. changed 06/19. RT Radial A/line; Hina BP : 105/54 MAP 75; RT
Upper arm auto BP 103/66 MAp 76; Core temp 96.6; RR 10; 99%/2L . Leger output 5cc jessica dark
pt confused, Disoriented, Speech unclear.
ABle to move B/L UE and LE.
S1 and S2 to auscultation
Abdomen round, hernia, Tender to touch
HOB elevated call farmer within reach
[2024-06-20] MEDS: SYMBICORT 160/4.5 MCG INHALER 2 PUFF INH (08:25)
[2024-06-20] MEDS: SPIRIVA RESPIMAT 2.5 MCG 2 PUFF INH (08:25)
[2024-06-20] MEDS: PROTONIX 40 MG PO (08:32)
[2024-06-20] MEDS: MERREM 500 MG IV ×2 (09:57→17:45)
[2024-06-20] MEDS: STERILE WATER FOR INJECTION 10 ML IV ×2 (09:57→17:45)
--- NOTE | 2024-06-20 10:00 | CON.GI ---
Addendum entered and electronically signed by Rohit Pineda MD 06/20/24 12:37:
Para done - 2.5 liter of cloudy fluid removed, PMN 5500/mm3 definitive for SBP. Wait for culture results. Of note, pt did receive 100g of albumin o/n, thus my additional order of 50g albumin canceled.
Original Note:
Consultation
-
Date/Time Consultation Requested: 06/19/2024
Date/Time Consultation Performed: 06/20/2024
Performing Provider: Rohit Pineda
Reason for Consultation: decompensated cirrhosis, abdominal pain
Medical History
Chief Complaint / HPI
Chief Complaint: decompensated cirrhosis, abdominal pain
History of Present Illness:
Patient is a 69-year-old female with history of alcoholic decompensated cirrhosis and asthma who presents with worsening abdominal pain. Most of the history is taken from patient's daughter. She reported gradually worsening abdominal pain for past
few weeks. She was recently admitted for lower extremity edema and ascites. She follows Dr. Camara and Dr. Lozoya. Since admission, her clinical status deteriorated with worsening hypotension and increasing MELD. Diagnostic/therapeutic paracentesis
was ordered but has not been performed yet.
Past Medical History
Past Medical History: Asthma and Other
Past Surgical History:
Social History
Tobacco: Former Smoker
Alcohol: Former
Allergies / Home Medications
Allergy/AdvReac Type Severity Reaction Status Date / Time
codeine Allergy Itching Verified 06/19/24 09:40
latex Allergy Itching Verified 06/19/24 09:40
morphine Allergy Itching Verified 06/19/24 09:40
�Medication �Instructions �Recorded
albuterol sulfate 90 mcg/actuation 2 puff inhalation R Q4HPRN PRN SOB 02/10/17
aerosol inhaler
nadolol 20 mg tablet 20 mg PO DAILY CIRRHOSIS 04/11/19
fluticasone fur. 200 mcg-umeclid 1 inh inhalation DAILY 06/19/24
62.5 mcg-vilant 25 mcg Lung/Breathing Issues
inhalat.powder (Trelegy Ellipta)
furosemide 20 mg tablet 20 mg PO DAILY Fluid 06/19/24
Retention/Swelling
lactulose 10 gram/15 mL (15 mL) 10 g PO DAILY CIRRHOSIS 06/19/24
oral solution
omeprazole 20 mg tablet,delayed 20 mg PO DAILY Gastrointestinal 06/19/24
release Issue
spironolactone 50 mg tablet 50 mg PO DAILY Fluid 06/19/24
Retention/Swelling
Review of Systems
Vital Signs
Temp Pulse Resp BP Pulse Ox
96.6 F L 79 11 103/66 99
06/20/24 07:34 06/20/24 08:33 06/20/24 08:33 06/20/24 07:30 06/20/24 08:33
Physical Exam
Exam
General: Well Developed and Well Nourished
HEENT: Normocephalic
Respiratory: Clear
Cardiac: S1/S2 and Regular Rhythm
GI: Soft, Normal Bowel Sounds, Tender and Distended
Results
WBC 24.0 10^3/uL (4.8-10.8) H 06/20/24 01:58
Hgb 10.7 g/dL (12.0-16.0) L 06/20/24 01:58
Hct 31.3 % (37.0-47.0) L 06/20/24 01:58
MCV 89.7 fL (81.0-99.0) 06/20/24 01:58
Plt Count 241 10^3/uL (130-400) 06/20/24 01:58
Absolute Neuts (auto) 3.8 10^3/uL (1.4-6.5) 06/19/24 09:42
PT 25.3 Sec (11.4-14.6) H 06/19/24 22:00
INR 2.31 06/19/24 22:00
APTT 41.6 Sec (23.4-35.0) H 06/19/24 22:00
Sodium Cancelled 06/20/24 12:00
Potassium Cancelled 06/20/24 12:00
Chloride Cancelled 06/20/24 12:00
Carbon Dioxide Cancelled 06/20/24 12:00
BUN Cancelled 06/20/24 12:00
Creatinine Cancelled 06/20/24 12:00
Calcium Cancelled 06/20/24 12:00
Total Bilirubin 6.0 mg/dl (0.2-1.3) H 06/20/24 01:58
AST 392 U/L (14-36) H 06/20/24 01:58
ALT 64 U/L (0-35) H 06/20/24 01:58
Alkaline Phosphatase 72 U/L (38-126) 06/20/24 01:58
Lipase 27 U/L (23-300) 06/19/24 09:42
Diagnostic Image Results:
Prior GI Procedures:
EGD:
Colonoscopy:
Assessment / Plan
-
69 year-old female with alcoholic cirrhosis presenting with abdominal pain most suggestive of SBP.
Impression / Rec:
1. SBP w/ sepsis - she is critically ill. She complained of abdominal pain for past several weeks. No other symptoms such as cough or dysuria. No diagnostic/therapeutic paracentesis yet. Her MELD Na was 15 about a month ago, now 32. She is
acutely hyponatremic with normal sodium about a month ago, 129 on admission and 126 today. She is on 3 pressors (Levophed, vega-synephrine, pitressin) hemodynamic support. LILIBETH with cr of 0.8 on admission and 1.6 today. Patient was started on Zosyn
and had received 25% albumin 100 cc late last night and second infusion this AM. Will change abx to meropenem and daptomycin given her critical illness. Will need another 50g to meet 1g/kg albumin infusion as per recommended guideline, will order
for next infusion and for day 2. ID on board, should also have renal consult.
Total Time Spent with Patient (in minutes): 55
-
-
Thank you for consultation and allowing me to participate in the patient's care. Please call the solutions architect consultant GI physician during the after hours with any questions or concerns.
--- NOTE | 2024-06-20 10:17 | CON.ID ---
Consultation
-
Date/Time Consultation Requested: June 20, 2024 1000
Date/Time Consultation Performed: June 20, 2024 1020
Requesting Provider: Dr. Mir Sarabia
Performing Provider: Dr. Kristi Saxena
Reason for Consultation: Septic shock, possible SBP
Chief Complaint / Past History
Chief Complaint
Abdominal pain
History of Present Illness
69 year old female with ETOH cirrhosis presented to ED 06/19 due to severe abd pain and distention. She has been having increasing abd girth and LE edema for several months with some improvement with furosemide. GI also started lactulose for
intermittent confusion. However, over the past few days, abd became very distended and painful. She thus presented to ED. She was drowsy, hypotensive. LFT's elevated. CT a/p showed moderate ascites. She was started on Zosyn. Overnight she
decompensated requiring 3 pressors, now in LILIBETH, hypothermic, leukocytosis, increasing LFT's. Mental status better. She denies fevers at home. She c/o abd pain and tightness. No urinary sxs. No LOERA. No cough/SOB. No ill-contacts. Still has her pet cat
without scratches/bites. No eating raw oysters/seafood. Has not travelled recently. No stool yet per nurse. GI replaced Zosyn with meropenem and daptomycin. For paracentesis today.
Past History
Additional Past Medical History:
HTN
ETOH cirrhosis
Gastric Varies / Portal Hypertensive Gastropathy
Asthma
Allergy History:
codeine Allergy (Verified 06/19/24 09:40)
Itching
latex Allergy (Verified 06/19/24 09:40)
Itching
morphine Allergy (Verified 06/19/24 09:40)
Itching
Medications Reviewed: Yes
Current Antibiotics:
Zosyn (06/19) -> meropenem (06/20)
Daptomycin
Social History
Tobacco: Non-Smoker
Alcohol: Former
Drug: None
Family History
Family History: Not Pertinent
Review of Systems
Review of Systems
General: Change in Appetite; Negative Fever or Chills
HEENT: Negative Sinus Problems, Headache or Pharyngitis
Cardiovascular: Edema; Negative Chest Pain
Respiratory: Negative Dyspnea or Cough
Gasteroenterology: Negative Nausea, Vomiting or Diarrhea
Genital / Urological: Negative Dysuria or Flank Pain
Endocrine: Weakness and Fatigue
Skin / Hair / Nails: Negative Rash
All systems: All other systems were reviewed and were negative
Vital Signs
Temp Pulse Resp BP Pulse Ox
96.6 F L 79 11 103/66 99
06/20/24 07:34 06/20/24 08:33 06/20/24 08:33 06/20/24 07:30 06/20/24 08:33
Physical Exam
Physical Exam
Constitutional: Acutely Ill
Head: Other (no frontal or maxillary sinus tenderness)
Eyes: No Conjunctival Hemorrhage and Other (sclera icteric)
Cardiovascular: Regular Rate and S1/S2
Pulmonary: Clear
Gastrointestinal: Soft, Tender (diffuse ), Distended (firm very distended) and Decreased Bowel Sounds
Genito-Urinary: Leger and Clear Urine
Extremities: Edema (4+ edema)
Musculoskeletal: Negative Spinal Tenderness
Skin: Jaundice
Neurological: AO x 3 and Other (Drowsy)
Lines: PICC (LUE no erythema)
Lab / Diagnostic Study Results
06/20/24 01:58
06/20/24 12:00
Abs Immat Gran (auto) 0.1 10^3/uL (0-0.05) H 06/19/24 09:42
Absolute Neuts (auto) 3.8 10^3/uL (1.4-6.5) 06/19/24 09:42
Absolute Lymphs (auto) 1.2 10^3/uL (1.2-3.4) 06/19/24 09:42
Absolute Monos (auto) 0.6 10^3/uL (0.1-0.6) 06/19/24 09:42
Absolute Basos (auto) 0.0 10^3/uL (0-0.2) 06/19/24 09:42
Immature Gran % 0.9 % (0-0.5) H 06/19/24 09:42
Neutrophils % 65.4 % (42.2-75.2) 06/19/24 09:42
Lymphocytes % 20.0 % (20.5-51.1) L 06/19/24 09:42
Monocytes % 10.4 % (1.7-9.3) H 06/19/24 09:42
Eosinophils % 2.6 % (0-6) 06/19/24 09:42
Basophils % 0.7 % (0-2) 06/19/24 09:42
PT 25.3 Sec (11.4-14.6) H 06/19/24 22:00
INR 2.31 06/19/24 22:00
Lactic Acid 6.4 mmol/L (0.7-2.0) H* 06/20/24 06:18
Urine WBC 3-5 /HPF (0-5) 06/19/24 18:26
Ur Squamous Epith Cells 0-2 /LPF (Few) 06/19/24 18:26
Microbiology Results
Micro:
06/19/24 18:26 Blood Culture - Pending
Blood/Venous
06/19/24 CT a/p: Cirrhotic morphology with evidence of portal hypertension and moderate volume ascites. Cholelithiasis. There is gallbladder wall thickening which is likely secondary to chronic liver disease. Colonic diverticulosis. There is
questionable wall thickening along the sigmoid colon and proximal ascending colon which may represent colitis. Complex ventral hernia containing fat and ascites.
06/19/24 CXR: No active cardiopulmonary disease. The tip of the PICC line is at the cavoatrial junction
Assessment / Plan
# Suspect spontaneous bacterial peritonitis
# Decompensated ETOH cirrhosis
# Septic shock on 3 pressors
# multisytem organ failure - LILIBETH
# Worsening leukocytosis, hypothermic
- Need diagnostic and therapeutic paracentesis
- Follow blood cx. Ordered second set blood cx
-Continue meropenem
- replace daptomycin (not yet given) with IV vancomycin (dosing by pharmacy)
- Add micafungin.
- Monitor renal function closely, adjust abx dosing prn.
-Will de-escalate when further data available.
- Follow vitals, WBC
60min critical care time spent on this complex case.
Care Review
Plan reviewed with: Physician (Dr. Lock)
--- NOTE | 2024-06-20 11:15 | W.PN.INTV ---
Today's Communication / Plan
Recommendations
Continue vasopressors
Trend lactic acid
Discontinue inhalers-transition to nebulized therapy
Antibiotics/antifungals per infectious disease
Paracentesis today-follow cultures
Follow BMP later
May need bicarbonate drip
Leger in place
Assessment
-
69-year-old woman with history of alcoholic cirrhosis came to the hospital complaining of increased abdominal girth, abdominal pain, poor p.o. intake, found to be hypotensive. Transferred to the intensive care unit due to lack of response to IV
fluids. Started on vasopressors 06/19/2024. Suspicious for spontaneous bacterial peritonitis
Septic shock
Worsening abdominal distention/abdominal pain
Possible spontaneous bacterial peritonitis vs ? Less likely colitis
CT abdomen pelvis 06/19/2024:Cirrhotic morphology with evidence of portal hypertension and moderate volume ascites.
Cholelithiasis. There is gallbladder wall thickening which is likely secondary to chronic liver disease.
Colonic diverticulosis. There is questionable wall thickening along the sigmoid colon and proximal ascending colon which may represent colitis.
Complex ventral hernia containing fat and ascites.
Hyponatremia acute kidney injury
Anion gap metabolic acidosis-increased lactic acid
-
Conditions present prior admission:
Alcoholic cirrhosis since 2017
Portal hypertensive gastropathy
Hypervolemic hyponatremia
Ventral hernia history of asthma only follows up with primary care
Former alcohol use quit in 2017
Assessment and plan:
Critically ill, septic shock likely due to spontaneous bacterial peritonitis
-
Shock: Multiple mechanism distributive/septic
Acute kidney injury/worsening metabolic acidosis with increased lactic acid.
Suspect spontaneous bacterial peritonitis
Urinalysis-not impressive
Chest x-ray without infiltrate
Doubt colitis-lack of diarrhea.
Continue vasopressors: Levophed/Arash-Synephrine/vasopressin
Target mean arterial blood pressure 65 mmHg
Status post IV fluid resuscitation. Hold further aggressive fluid resuscitation.
Peak lactic acid 7-currently 6.4. Continue to trend.
Started on albumin twice a day per GI.
Paracentesis today 06/20/2024.
Random cortisol level 06/19/2024 is 60.
Will continue to follow closely, if there is no response despite multiple vasopressors and antibiotics may need to consider empirical hydrocortisone for relative adrenal insufficiency.
-
Repeat BMP later.
If there is worsening metabolic acidosis then a bicarbonate drip will be needed.
Received a bolus of bicarbonate amp overnight.
-
Leger catheter in place
PICC line in place
Arterial line may be needed
Obtain echocardiogram-order has been placed
-
Initially on Zosyn-infectious disease has been consulted 06/20/2024. Case discussed with-transition to meropenem/daptomycin and micafungin
Follow fever curve and leukocytosis
Follow culture
-
Will keep n.p.o.-. May use ice chips and sips of water. High risk for intubation.
If mental status worsen ABG will be helpful to rule out hypercapnia. Currently conversant, following commands. Slightly confused.
Head of bed elevation
-
Alcoholic liver cirrhosis-
Monitor mental status for hepatic encephalopathy
Hold diuretics due to hypotension
Okay with lactulose if tolerated
Continue PPI
Gastroenterology following the patient. Case discussed
-
So far no evidence for hepatic encephalopathy
Try to avoid sedatives if possible
-
History of asthma-not bronchospastic on exam
Shortness of breath likely related to worsening ascites.
Transition to DuoNebs 3 times a day.
Hold inhalers, unlikely to perform inhaler maneuver.
-
DVT prophylaxis-subcu heparin every 12
INR is rising. Continue to follow.
-
Discussed with primary team, discussed with infectious disease. Discussed with GI on 06/20/2024.
Dr. Lock updated family members 06/20/2024. Critical situation. Worsening septic shock. Worsening multiorgan failure.
Dr. Lock discussed critical situation with patient and daughter at the bedside. Extensive discussion and explanation of current situation.
-
Critical care statement: A total of 82 minutes of critical care time was provided for this patient today. This includes management of unstable vital signs, evaluation of the patient at bedside, reviewing the patient's pertinent medical records
including ventilator settings, arterial blood gases, radiographs, microbiology, laboratory evaluations and discussion with primary team, critical care nursing, and respiratory therapy.
Subjective Dataa
Subjective Data
Date of Service:
Date of Service: June 20, 2024
Chief Complaint: Digital Media Director Follow Up (Septic shock)
Subjective:
Critically ill, continues to report abdominal discomfort
Denies nausea or vomiting
Shortness of breath with activity
Poor p.o. intake
Denies diarrhea
Review of Systems
General: Other ( difficult to obtain due to acuity)
Objective Data
Data Reviewed
Vital Signs / I&O / Oxygen:
Vital Signs
Temp Pulse Resp BP Pulse Ox
96.6 F L 79 11 103/66 99
06/20/24 07:34 06/20/24 08:33 06/20/24 08:33 06/20/24 07:30 06/20/24 08:33
Intake and Output
06/19/24 06/20/24 06/21/24
06:59 06:59 06:59
Intake Total 2558.2 / 2702.0 708.3 / 708.3
Output Total 110 / 115 60 / 60
Balance 2448.2 / 2587.0 648.3 / 648.3
SaO2 99
Nasal Cannula flow liters per 2
minute
Physical Exam
General: Respiratory Distress (Mild at rest)
HEENT: Normocephalic
Cardiovascular: S1-S2 and Regular Rhythm
Respiratory: Clear and Other (Decreased breath sounds both bases)
GI: Distended (Mildly tender, ascites.) and Other ( Ventral hernia not tender not erythematous)
Neurology: Awake, Alert, No Motor Deficits, Tremors (None), Other (Follows commands) and Other (Confused)
Skin: Warm
Labs/Micro/Reports
Lab Data
06/20/24 01:58
06/20/24 12:00
Laboratory Results
06/19/24 06/19/24 06/19/24
09:40 20:00 22:00
PT 20.9 H 25.3 H
INR 1.82 2.31
APTT Cancelled 41.6 H
--- NOTE | 2024-06-20 11:21 | PHA.VAN.IN ---
Assessment
- Assessment
Renal Function: Appears elevated from baseline
Maximum Temperature: 99.7
Minimum Temperature: 96.6
Concomitant Antimicrobials: Micafungin, Meropenem
Plan
- Plan
Initial / Loading Dose: Vanc 2000mg--22mg/kg
Maintenance Regimen: PRN by level
Monitoring: Random 06/21
Pharmacokinetics Vancomycin I
- -
Patient Age: 69
Patient Sex: Female
Vancomycin Day #: 1
Indication: Gi / Intra-Abdominal
Requesting Provider: Hemanth
Height / Weight:
Height 5 ft 2 in
Actual Weight 90.6 kg
IBW in k.1
Adjusted BW in k.3
Pertinent Past Medical History: Alcoholic Cirrhosis; LILIBETH
- Vital Signs / Lab Results
Temp Pulse Resp BP Pulse Ox
96.6 F L 79 11 103/66 99
06/20/24 07:34 06/20/24 08:33 06/20/24 08:33 06/20/24 07:30 06/20/24 08:33
Lab Results - Hematology
06/19/24 06/20/24
09:42 01:58
WBC 5.9 24.0 H
Lab Results - Chemistry
06/19/24 06/20/24 06/20/24
09:42 01:58 12:00
BUN 18 H 19 H Cancelled
Creatinine 0.8 1.6 H Cancelled
Estimated Creat Clear 69 34 Cancelled
Albumin 2.6 L 2.6 L
06/19/24 06/19/24 06/20/24
17:41 22:00 01:58
Lactic Acid 4.8 H* 6.4 H* 7.0 H*
06/20/24
06:18
Lactic Acid 6.4 H*
Lab Results - Urine
06/19/24
18:26
Urine Nitrite Positive A
Ur Leukocyte Esterase Trace A
Urine WBC 3-5
Ur Squamous Epith Cells 0-2
Urine Bacteria Few A
--- NOTE | 2024-06-20 11:40 | W.PN.UPDATE ---
Update Note
Progress Note Update
Procedure: Bedside para with US guidance
- 2.5L cloudy ascitic fluid removed.
[2024-06-20] MEDS: VANCOCIN 540 MG IV (11:49)
--- NOTE | 2024-06-20 11:55 | W.PN.HOSP.TC ---
Today's Communication/Plan
-
Monitor vital signs see plan
Cons nephrology
Monitor urine output
Continue albumin
Follow prior labs
Continue antibiotics
Wean pressors as tolerated
Acutely ill
Assessment / Plan
Assessment / Plan
General: Well Developed and Well Nourished
HEENT: Moist mucous membranes, Oxygen (Nasal Cannula) and Other (Icteric)
Respiratory: Clear and Non Labored Respirations
Cardiac: S1/S2 and Regular Rhythm
GI: Soft, Tender
Musculoskeletal: Other (+4 pitting edema bilateral lower extremity)
Skin: Warm, Dry and Jaundice
Neuro: AAox2-3
Psych: Calm
Worsening Abdominal Pain and Distention with septic shock, possible Spontaneous Bacterial Peritonitis
GI following
Continue with antibiotics, infectious disease added micafungin
IR for para, follow-up para labs
Albumin
Currently on 3 pressors, wean pressors as tolerated
monitor in ICU
NPO with sips for now; monitor
Follows up with Dr. Camara and Dr. Lozoya outpatient
LILIBETH
Spoke with GI, requesting nephrology evaluation
Currently has Leger catheter, continue to monitor urine output
Lactic acidosis
Continue to monitor
Hyponatremia, suspect hypervolemic hyponatremia
-Continue fluid restriction
-Hold Lasix for now in setting of low blood pressure
Alcohol Cirrhosis
-MELD-Na has increased from 15 last month to 25
-Family notes they have began discussions about possible transplant
Hepatic Encephalopathy
Coagulopathy noted, continue to monitor
-Ammonia level currently within normal range
-Continue Lactulose
Gastric Varies / Portal Hypertensive Gastropathy
-Hold nadolol due to low blood pressure
-Continue Protonix
DVT proph: SCDs
Code Status: Full Code
I spent a total of 53 minutes with the patient or on the floor. More than 50% of this time involved counseling and coordination of care.
Anticipated Discharge: > 48 hours
Subjective/Interval History
-
Date of Service: June 20, 2024
has abdominal pain
Objective Data
-
Labs:
Laboratory Results
06/20/24 06/20/24 06/20/24
01:58 12:00 12:00
WBC 24.0 H
Hgb 10.7 L
Hct 31.3 L
Plt Count 241
Sodium 126 L Cancelled Pending
Potassium 5.0 Cancelled
Chloride 94 L
Carbon Dioxide 14 L*
BUN 19 H
Creatinine 1.6 H
Glucose 116 H
Calcium 7.8 L
Total Bilirubin 6.0 H
AST 392 H
ALT 64 H
Alkaline Phosphatase 72
06/20/24 06/20/24 06/20/24
12:00 12:00 12:00
WBC
Hgb
Hct
Plt Count
Sodium
Potassium Pending
Chloride Cancelled Pending
Carbon Dioxide Cancelled Pending
BUN Cancelled
Creatinine
Glucose
Calcium
Total Bilirubin
AST
ALT
Alkaline Phosphatase
06/20/24 06/20/24 06/20/24
12:00 12:00 12:00
WBC
Hgb
Hct
Plt Count
Sodium
Potassium
Chloride
Carbon Dioxide
BUN Pending
Creatinine Cancelled Pending
Glucose Cancelled Pending
Calcium Cancelled
Total Bilirubin
AST
ALT
Alkaline Phosphatase
06/20/24
12:00
WBC
Hgb
Hct
Plt Count
Sodium
Potassium
Chloride
Carbon Dioxide
BUN
Creatinine
Glucose
Calcium Pending
Total Bilirubin Pending
AST Pending
ALT Pending
Alkaline Phosphatase Pending
Vital Signs:
Vital Signs
Temp Pulse Resp BP Pulse Ox
96.6 F L 79 11 103/66 99
06/20/24 07:34 06/20/24 08:33 06/20/24 08:33 06/20/24 07:30 06/20/24 08:33
I&O
06/19/24 06/20/24 06/21/24
06:59 06:59 06:59
Intake Total 2558.2 / 2702.0 1137.3 / 1137.3
Output Total 110 / 115 60 / 60
Balance 2448.2 / 2587.0 1077.3 / 1077.3
[2024-06-20 12:03] LABS: Body Fluid Mononuclear 20.7 %; Body Fluid Polymorphonuclear 79.3 %; Body Fluid WBC 6983 /CUMM
[2024-06-20 12:05] LABS: Body Fluid Second Tech AMA
[2024-06-20 12:13] LABS: Body Fluid Albumin < 1.0 g/dl; Body Fluid Amylase 191 U/L; Body Fluid LDH 477 U/L; Body Fluid Protein < 2.0 g/dl
[2024-06-20] MEDS: MYCAMINE 105 MG IV (12:40)
[2024-06-20] MEDS: ZOFRAN 4 MG IV (12:47)
--- NOTE | 2024-06-20 12:50 | W.CON.NEPH ---
Consultation
-
Date/Time Consultation Requested: 06/20/2024 11 AM
Date/Time Consultation Performed: 06/20/2024 12 PM
Requesting Provider: Dr. Calderon
Performing Provider: Dr. Palma
Reason for Consultation: LILIBETH
Medical History
-
Chief Complaint: Abdominal pain
History of Present Illness:
This is a 69-year-old female with known alcoholic cirrhosis followed by Dr. Lozoya. Her cirrhosis has previously been compensated. She was on spironolactone as well as Lasix. She was in [facility] about a month ago with hepatic
encephalopathy. She had been doing fairly well post discharge but recently developed significant abdominal pain which worsened rather rapidly. Because of this she came to the emergency room. She was noted to be likely septic and became
significantly hypotensive requiring 3 [address]. She received a CT scan with IV contrast which had the suggestion of possible colitis. Her creatinine normally baseline 0.8 had jumped to 1.6. We are asked to assist with management of the acute
kidney injury. She is currently critically ill in the ICU on pressors
Past Medical History
Alcoholic cirrhosis, gastric varices, asthma,
Social History
Tobacco: Former Smoker
Alcohol: Former
Family History
Family History: Not Pertinent
Allergies / Home Medications
Allergy/AdvReac Type Severity Reaction Status Date / Time
codeine Allergy Itching Verified 06/19/24 09:40
latex Allergy Itching Verified 06/19/24 09:40
morphine Allergy Itching Verified 06/19/24 09:40
�Medication �Instructions �Recorded �Confirmed �Type
albuterol sulfate 90 mcg/actuation 2 puff inhalation R Q4HPRN PRN SOB 02/10/17 06/19/24 History
aerosol inhaler
nadolol 20 mg tablet 20 mg PO DAILY CIRRHOSIS 04/11/19 06/19/24 History
fluticasone fur. 200 mcg-umeclid 1 inh inhalation DAILY 06/19/24 06/19/24 History
62.5 mcg-vilant 25 mcg Lung/Breathing Issues
inhalat.powder (Trelegy Ellipta)
furosemide 20 mg tablet 20 mg PO DAILY Fluid 06/19/24 06/19/24 History
Retention/Swelling
lactulose 10 gram/15 mL (15 mL) 10 g PO DAILY CIRRHOSIS 06/19/24 06/19/24 History
oral solution
omeprazole 20 mg tablet,delayed 20 mg PO DAILY Gastrointestinal 06/19/24 06/19/24 History
release Issue
spironolactone 50 mg tablet 50 mg PO DAILY Fluid 06/19/24 06/19/24 History
Retention/Swelling
Review of Systems
-
Abdominal pain, thirst
All other systems: Negative unless noted
Physical Exam
Vital Signs
Vital Signs
Temp Pulse Resp BP Pulse Ox
96.6 F L 79 11 103/66 99
06/20/24 07:34 06/20/24 08:33 06/20/24 08:33 06/20/24 07:30 06/20/24 08:33
Lab Results
WBC 24.0 10^3/uL (4.8-10.8) H 06/20/24 01:58
RBC 3.49 10^6/uL (4.20-5.40) L 06/20/24 01:58
Hgb 10.7 g/dL (12.0-16.0) L 06/20/24 01:58
Hct 31.3 % (37.0-47.0) L 06/20/24 01:58
Plt Count 241 10^3/uL (130-400) 06/20/24 01:58
eGFR Cancelled 06/20/24 12:00
Laboratory Tests
05/16/24
14:24
Sodium 137
Potassium 3.2 L
Carbon Dioxide 33 H
Creatinine 0.6
Laboratory Tests
10/13/24
06:18
Lactic Acid 6.4 H*
Physical Exam
Patient is awake alert oriented and in no distress. Mood and affect were pleasant, insight and judgment were good. Pupils are equal round and reactive to light, extraocular movements are intact, sclera were anicteric. Hearing was normal, ears and
nose are intact. Oropharynx was clear. Neck was supple with trachea midline and no thyromegaly. Heart was regular rate and rhythm without rubs. Lower extremities with 3+ edema. Lungs were clear to auscultation bilaterally and with normal
excursion. Abdomen was soft, nontender, with normal active bowel sounds, and no hepatosplenomegaly. Skin was without rash and with normal turgor.
Data Reviewed
-
Radiology: Image Personally Visualized and interpreted (Chest x-ray on 06/19/2024 by reading shows no acute disease)
CT Scan: Report Reviewed by me (CT scan abdomen pelvis with IV contrast on 06/19/2024 shows cirrhosis, moderate ascites, sigmoid colon thickening, diverticulosis, ventral hernia, gallbladder wall thickening)
Ultrasound: Report Reviewed by me (Paracentesis on 06/20/2024 yielded 2.5 L cloudy fluid)
Medical Tests (Nuc Med, Echo etc): Image Personally Visualized and interpreted (EKG on 06/19/2024 by my reading shows normal sinus rhythm)
Labs: Labs Reviewed by me
Old Records: Reviewed
Assessment/Plan
-
Assessment
Alcoholic cirrhosis
Hypotension
Abdominal pain
Sepsis
Lactic acidosis
Metabolic acidosis
LILIBETH
Hyponatremia
Plan
Keep mean arterial pressure greater than 65 with pressors
Follow BMP
Follow lactate, acidosis should improve with maintenance of perfusion
Empiric antibiotics for SBP
Follow cultures
I discussed with the patient as well as her family at this time at great length. Factors in her acute kidney injury include contrast as well as hypotension and sepsis. I suspect that her creatinine will continue to rise over the next 48 hours. We
will follow her urine output carefully. She may require dialysis. If she does she will require continuous replacement therapy. They understand.
Critical care time spent 40 minutes
[2024-06-20 12:59] LABS: Lactic Acid 5.2 mmol/L (0.7-2.0)
[2024-06-20 13:00] LABS: ALT (SGPT) 183 U/L (0-35); Albumin 2.8 g/dl (3.5-5.0); Alkaline Phosphatase 59 U/L (38-126); Blood Urea Nitrogen 23 mg/dl (7-17); Calcium 8.2 mg/dl (8.4-10.2); Carbon Dioxide 16 mmol/L (22-30); Chloride 90 mmol/L (98-107); Estimated Creatinine Clearance 35 ml/min; Glucose 185 mg/dl (70-99); Potassium 4.6 mmol/L (3.5-5.1); Sodium 123 mmol/L (135-145); Total Bilirubin 6.7 mg/dl (0.2-1.3); Total Protein 5.9 g/dl (6.3-8.2); eGFR 34.91
[2024-06-20 13:00] LABS: Ammonia 48 umol/L (9-30)
[2024-06-20] MEDS: DUONEB 3 ML INH ×2 (13:02→20:03)
[2024-06-20 13:15] LABS: AST (SGOT) 1125 U/L (14-36)
--- NOTE | 2024-06-20 15:25 | W.PN.UPDATE ---
Update Note
Progress Note Update
Spoke with Dr. Lamont Wing, case consultant at [facility] (who graciously took my call despite being off service). Queried whether [facility] can add/escalate to her current care given the critical nature of her illness. Pt has severe sepsis from SBP and
overall clinical deterioration from her hepatic / multi-organ systems. Dr. Wing relayed that there isn't significant elevation of care/therapy [facility] would provide at this time; if pt stabilizes then can re-assess for possible transfer.
[2024-06-20] MEDS: LEVOPHED 258 MG IV ×2 (15:40→21:00)
--- NOTE | 2024-06-20 17:56 | PTCARENOTE ---
patient in bed. Arousable to voice , confusion wax and weans. Dilaudid 0.25 prn order given earlier for severe abdominal pain 10 out of 10 pain scale level. SR 79; RT Radial A/line BP 105/49 MAP 71; RR 13; POX 98%2L . Lungs diminished with no
wheezing. Abdomen round ascites, Tender. Hypoactive BS; RT site puncture from paracentesis covered with band aid, dry. Indwelling Leger draining dark jessica urine total urinal output from 7am viri 7pm shift 100cc/
RT PICC line Purple lumen : Levophed Double concentration 26mcg/48.8 ml + Arash DC 125mcg/18.8ml VAsop.. 0.04 12ml; White lumen KVO;
Rt upper arm peripheral line 22G Albumin 25% in 100ml infusing .
[2024-06-20] MEDS: HEPARIN 5000 UNITS SC (20:44)
[2024-06-20] MEDS: DUPHALAC/CHRONULAC PO ×2 (20:44→22:30)
--- NOTE | 2024-06-20 21:00 | PTCARENOTE ---
economic specialist, pt very lethargic, briefly opens eyes to reply one word answers, gen weakness t/o but wd to pain, L pupil found to be 6 with no reaction, KFlahertyNP aware/assessed pt. pt for CT Head. assessment otherwise unchanged from prev shift-
LDL PICC with dbl conc Levo, dbl conc Arash, Vaso infusing per work list. R Rad AL WNL. Sat 98% on 2LNC. Leger cath with minimal amt jessica yellow urine. mouth care, valorie care, CHG done.
[2024-06-20 22:51] LABS: Lactic Acid 3.4 mmol/L (0.7-2.0)
--- NOTE | 2024-06-20 23:00 | W.PN.UPDATE ---
Update Note
Progress Note Update
06/20/24
2200- RN reported patient having unequal pupils and increased lethargy. Pupils left eye 6-7mm non reactive and right 3-4mm brisk reactive. Patient able to withdraw to painful noxious stimuli, able to move all extremities, difficulty following
simple or complex commands but able to mumble simple 1 word, overall increased sleepiness and lethargy. Ordered STAT ctscan of the head, negative for acute intracranial abnormalities. No further changes in neurological examination, no weakness
noted in extremities just pupils unequal. In review of medications patient had received earlier in the event duoneb nebulized, possible ipratropium is causing this asymmetric dilation of pupils if it gets into the eye. The effects of ipratropium
in the eye can last for up to 48 hours and will resolve in 24 hours. Patient's increased lethargy is likely sepsis and alcoholic liver cirrhosis, and possible hepatic encephalopathy. Discussed with Dr. Lock, box inspector, agreed with current plan
and management.
[2024-06-21] MEDS: FLEXBUMIN 100 IV ×3 (00:23→22:51)
[2024-06-21] MEDS: NEO-SYNEPHRINE 1% 260 MG IV ×2 (00:24→11:46)
[2024-06-21] MEDS: LEVOPHED 258 MG IV ×4 (02:02→20:57)
[2024-06-21] MEDS: MERREM 500 MG IV ×3 (02:02→19:34)
[2024-06-21] MEDS: STERILE WATER FOR INJECTION 10 ML IV ×3 (02:02→19:34)
[2024-06-21 03:31] LABS: Lactic Acid 3.3 mmol/L (0.7-2.0)
[2024-06-21 03:33] LABS: Hematocrit 27.6 % (37.0-47.0); Hemoglobin 9.5 g/dL (12.0-16.0); INR 3.52; Mean Corp Hgb Conc. 34.4 g/dL (33.0-37.0); Mean Corpuscular Volume 90.2 fL (81.0-99.0); Mean Platelet Volume 9.2 fL (7.4-10.4); PT 35.3 Sec (11.4-14.6); Platelet Count 194 10^3/uL (130-400); Red Blood Cell Count 3.06 10^6/uL (4.20-5.40); Red Cell Dist. Width 15.1 % (11.5-14.5); White Blood Cell Count 20.5 10^3/uL (4.8-10.8)
[2024-06-21 03:49] LABS: ALT (SGPT) 160 U/L (0-35); AST (SGOT) 712 U/L (14-36); Albumin 3.2 g/dl (3.5-5.0); Alkaline Phosphatase 40 U/L (38-126); Blood Urea Nitrogen 27 mg/dl (7-17); Calcium 7.9 mg/dl (8.4-10.2); Carbon Dioxide 17 mmol/L (22-30); Chloride 90 mmol/L (98-107); Estimated Creatinine Clearance 30 ml/min; Glucose 150 mg/dl (70-99); Potassium 4.6 mmol/L (3.5-5.1); Sodium 123 mmol/L (135-145); Total Bilirubin 5.4 mg/dl (0.2-1.3); eGFR 28.41
--- NOTE | 2024-06-21 05:00 | PTCARENOTE ---
pt continues to be very lethargic, minimal verbal response. no further changes.
[2024-06-21 05:56] VITALS: BMI 36.8
[2024-06-21 06:16] LABS: Ammonia 69 umol/L (9-30); Lactic Acid 3.2 mmol/L (0.7-2.0)
[2024-06-21] MEDS: PITRESSIN 100 IV ×3 (06:41→22:51)
[2024-06-21 07:16] LABS: Vancomycin Random 15.7 ug/ml
--- NOTE | 2024-06-21 07:45 | W.PN.INTV ---
Today's Communication / Plan
Recommendations
Antibiotics
Pressors
Noninvasive ventilation
Follow ABG
Consider renal replacement therapy
Goals of care discussions ongoing
Assessment
-
69-year-old woman with history of alcoholic cirrhosis came to the hospital complaining of increased abdominal girth, abdominal pain, poor p.o. intake, found to be hypotensive. Transferred to the intensive care unit due to lack of response to IV
fluids. Started on vasopressors 06/19/2024. Suspicious for spontaneous bacterial peritonitis
Septic shock
Worsening abdominal distention/abdominal pain
Possible spontaneous bacterial peritonitis vs ? Less likely colitis
CT abdomen pelvis 06/19/2024:Cirrhotic morphology with evidence of portal hypertension and moderate volume ascites.
Cholelithiasis. There is gallbladder wall thickening which is likely secondary to chronic liver disease.
Colonic diverticulosis. There is questionable wall thickening along the sigmoid colon and proximal ascending colon which may represent colitis.
Complex ventral hernia containing fat and ascites.
Hyponatremia acute kidney injury
Anion gap metabolic acidosis-increased lactic acid
Leukocytosis
Anemia
Elevated LFTs
Elevated ammonia
Conditions present prior admission:
Alcoholic cirrhosis since 2017
Portal hypertensive gastropathy
Hypervolemic hyponatremia
Ventral hernia history of asthma only follows up with primary care
Former alcohol use quit in 2017
Plan:
Remains critically ill minimally responsive, on pressors with renal failure and worsening liver failure
Supplemental oxygen
High flow oxygen if needed
Check ABG
Noninvasive ventilation if needed
High risk for intubation
Intubated mechanically ventilated if necessary-reviewed with daughter and -temporarily they would want intubation and mechanical ventilation
Intensified nebulizers-significant wheezing on exam though may have 'cardiac' component with renal failure and fluid overload
Follow-up chest x-ray
Aspiration precautions
Check cultures
Broad-spectrum empiric antibiotics to cover spontaneous bacterial peritonitis
Norepinephrine and vasopressin and Arash-Synephrine as needed-consider Giapreza
Trend lactate
IV fluids per nephrology
Initiate hydrocortisone 50 mg IV every 6 hours-random cortisol was 60, however, surviving sepsis guideline revision recommendations suggest consideration
Bicarb is needed
Monitor renal function
Nephrology following-correspondence reviewed-reviewed with Dr. Pickett
Replace electrolytes
Considered continuous renal replacement therapy-prognosis poor
Echocardiogram pending
Gastroenterology following
Status post paracentesis
Antibiotics-meropenem/daptomycin and micafungin
Albumin
Contacted tertiary center-no need for referral
Nutrition per gastroenterology
Lactulose CT
PPI
Follow ammonia
Monitor neurologic status
CT head without obvious acute infarct
Consider neurology evaluation though TME likely due to sepsis, hypoperfusion, and hepatic encephalopathy
DVT prophylaxis-subcu heparin every 12-INR elevated-hold heparin
GI prophylaxis-on pantoprazole
Dr. Vaz reviewed with daughter and at the bedside-06/21/2024 updated on current clinical situation, critical nature of her multi organ failure, morbidity and high mortality rate unfortunately and discussed CODE STATUS as well
Critical care statement: A total of 55 minutes of critical care time was provided for this patient today. This includes management of unstable vital signs, evaluation of the patient at bedside, reviewing the patient's pertinent medical records
including radiographs, management of respiratory failure, noninvasive ventilation, following ABGs, pressor management, sepsis management, microbiology, laboratory evaluations, and discussion with primary team, consultants, pharmacy, nutrition,
physical therapy, case management, charge nurse, critical care nursing, and respiratory therapy.
Subjective Dataa
Subjective Data
Date of Service:
Date of Service: June 21, 2024
Chief Complaint: Pacs Specialist Follow Up (Septic shock) and Pulmonary Follow Up
Subjective:
Dental status continues to deteriorate, minimally responsive, not following commands,
Review of Systems
General: Unobtainable - Pat Unresp
Objective Data
Data Reviewed
Vital Signs / I&O / Oxygen:
Vital Signs
Temp Pulse Resp BP Pulse Ox
97.5 F 79 11 100/51 98
06/21/24 05:53 06/21/24 06:00 06/21/24 06:00 06/20/24 20:00 06/21/24 06:00
Intake and Output
06/20/24 06/21/24 06/22/24
06:59 06:59 06:59
Intake Total 2558.2 / 2702.0 3128.2 / 3128.2
Output Total 110 / 115 190 / 190
Balance 2448.2 / 2587.0 2938.2 / 2938.2
SaO2 98
Nasal Cannula flow liters per 2
minute
Physical Exam
General: Respiratory Distress (Mild at rest)
HEENT: Normocephalic
Cardiovascular: Regular Rhythm
Respiratory: Wheeze (Diffuse expiratory), Crackles (Basilar), Rhonchi (n), Accessory Resp Muscle Use (Mild), Stridor (n) and Other (Decreased breath sounds both bases)
GI: Distended (Mildly tender, ascites.) and Other ( Ventral hernia not tender not erythematous)
Neurology: Awake, Alert, No Motor Deficits, Tremors (None), Other (Follows commands) and Other (Confused)
Skin: Warm, Good Color, Cyanosis (n) and Rash
Labs/Micro/Reports
Lab Data
06/21/24 03:05
06/21/24 03:05
Laboratory Results
06/21/24
03:05
PT 35.3 H
INR 3.52
Microbiology
06/19/24 18:26 Blood/Venous Blood Culture - Preliminary
No Growth in 24 hours- Final report to follow
06/20/24 11:16 Peritoneal Fluid Gram Stain - Preliminary
[2024-06-21] MEDS: DUONEB 3 ML INH ×4 (07:59→19:51)
--- NOTE | 2024-06-21 07:59 | W.PN.NEPH.PH ---
Today's Communication / Plan
-
3% saline
pressor support
follow up bmp this afternoon
no acute HD (CRRT) yet...
Assessment/Plan
-
Assessment
Alcoholic cirrhosis
Hypotension
Abdominal pain
Sepsis
Lactic acidosis
Metabolic acidosis
LILIBETH
Hyponatremia
Plan
LILIBETH worsening to 1.9, and UOP ~185cc
Hyponatremia persists at 123, will provide 3% saline at 20cc/hr as patient will not likely diurese and patient is too hemodynamically unstable
Will monitor closely for dialysis support, will likely have to be CRRT given hemodynamic instability if aggressive measures to be performed
Remains hemodynamically unstable on multiple pressor support
Keep mean arterial pressure greater than 65 with pressors
Empiric antibiotics for SBP
Follow cultures
Previously discussed with the patient as well as her family at this time at great length. Factors in her acute kidney injury include contrast as well as hypotension and sepsis. I suspect that her creatinine will continue to rise over the next 48
hours. We will follow her urine output carefully. She may require dialysis. If she does she will require continuous replacement therapy. They understand.
Critical care time spent 31 minutes
-
-
Date of Service: June 21, 2024
CC / HPI / ROS
-
Chief Complaint:
Acute kidney injury
History of Present Illness:
Remains hemodynamically unstable on multiple pressor support
Creatinine up to 1.9
Hyponatremia persistent 123
Review of Systems:
Status post paracentesis for 2-1/2 L
Hypothermic
Oliguric via Leger
Labs
-
Labs:
WBC 20.5 10^3/uL (4.8-10.8) H 06/21/24 03:05
RBC 3.06 10^6/uL (4.20-5.40) L 06/21/24 03:05
Hgb 9.5 g/dL (12.0-16.0) L 06/21/24 03:05
Hct 27.6 % (37.0-47.0) L 06/21/24 03:05
Plt Count 194 10^3/uL (130-400) 06/21/24 03:05
Sodium 123 mmol/L (135-145) L 06/21/24 03:05
Potassium 4.6 mmol/L (3.5-5.1) 06/21/24 03:05
Chloride 90 mmol/L (98-107) L 06/21/24 03:05
Carbon Dioxide 17 mmol/L (22-30) L 06/21/24 03:05
BUN 27 mg/dl (7-17) H 06/21/24 03:05
Creatinine 1.9 mg/dL (0.6-1.0) H 06/21/24 03:05
eGFR 28.41 06/21/24 03:05
Glucose 150 mg/dl (70-99) H 06/21/24 03:05
Calcium 7.9 mg/dl (8.4-10.2) L 06/21/24 03:05
Albumin 3.2 g/dl (3.5-5.0) L 06/21/24 03:05
Physical Exam
-
Vital Signs:
Vital Signs
Temp Pulse Resp BP Pulse Ox
97.5 F 79 11 100/51 98
06/21/24 05:53 06/21/24 06:00 06/21/24 06:00 06/20/24 20:00 06/21/24 06:00
Cardiovascular:: Regular rate and rhythm
Respiratory:: Bilateral: Coarse
Lung Excursion:: Normal
Abdomen:: Distended
Bowel Sounds:: Decreased
Extremity Edema:: +2: Bilateral:
Leger Catheter: Yes
[2024-06-21] MEDS: DUPHALAC/CHRONULAC PO ×2 (08:07→19:19)
[2024-06-21] MEDS: HEPARIN 5000 UNITS SC (08:08)
[2024-06-21 08:14] VITALS: BP 93/56
[2024-06-21 08:26] LABS: Absolute Neutrophils -Man Diff 17.8 10^3/uL (1.4-6.5); Band Neutrophils 27 % (0-3); Lymphocytes 7 % (20-51); Monocytes 5 % (2-9); Segmented Neutrophils 60 % (42-75)
[2024-06-21 08:27] LABS: Myelocytes 1 % (-)
[2024-06-21 08:28] LABS: Platelets Checked YES
[2024-06-21 08:30] LABS: Macrocytosis FEW; Normal RBC Morphology No
[2024-06-21 08:31] LABS: Ovalocytes FEW; Target Cells FEW; Total Cells Counted 100
[2024-06-21] MEDS: SODIUM CHLORIDE 3% 250 IV (09:05)
--- NOTE | 2024-06-21 09:29 | PHA.VAN.FU ---
Vancomycin Assessment / Plan
- Assessment
Renal Function: SCR Increasing
WBC's are: Trending Down
Concomitant Antimicrobials: meropenem, micafungin
- Assessment - Therapeutic Drug Monitoring
Random Level: 15.7 - drawn ~19H after 2000mg loading dose
- Dosing Plan
Dosing by Level: Hold off on dosing today (patient with increasing SCR & minimal UOP)
- Monitoring Plan
Random Level: 06/22 0600
Monitoring Comments: follow nephrology plans
- Follow Up
Pharmacy will continue to follow.
Vancomycin Follow UP
- -
Patient Age: 69
Patient Sex: Female
Vancomycin Day #: 2
Indication: Gi / Intra-Abdominal
Requesting Provider: Hemanth
Pertinent Antimicrobial Allergies:
no pertinent antibiotic allergies
Height / Weight:
Height 5 ft 2 in
Actual Weight 91.2 kg
IBW in k.1
Adjusted BW in k.3
Pertinent Past Medical History: BMI ~37
- Vital Signs / Lab Results
Temp Pulse Resp BP Pulse Ox
97.6 F 83 15 93/56 98
06/21/24 08:05 06/21/24 09:15 06/21/24 09:15 06/21/24 08:14 06/21/24 09:15
Lab Results - Hematology
06/19/24 06/20/24 06/21/24
09:42 01:58 03:05
WBC 5.9 24.0 H 20.5 H
Band Neutrophils 27 H
Lab Results - Chemistry
06/19/24 06/20/24 06/20/24
09:42 01:58 12:00
BUN 18 H 19 H Cancelled
Creatinine 0.8 1.6 H Cancelled
Estimated Creat Clear 69 34 Cancelled
Albumin 2.6 L 2.6 L
06/20/24 06/21/24
12:35 03:05
BUN 23 H 27 H
Creatinine 1.6 H 1.9 H
Estimated Creat Clear 35 30
Albumin 2.8 L 3.2 L
06/19/24 06/19/24 06/20/24
17:41 22:00 01:58
Lactic Acid 4.8 H* 6.4 H* 7.0 H*
06/20/24 06/20/24 06/20/24
06:18 12:37 17:40
Lactic Acid 6.4 H* 5.2 H* 4.0 H*
06/20/24 06/21/24 06/21/24
22:34 03:05 05:48
Lactic Acid 3.4 H 3.3 H 3.2 H
Microbiology Results
06/20/24 11:16 Body Fluid Culture - Preliminary
Peritoneal Fluid No Growth After 18-24 Hours
Gram Stain - Preliminary
06/19/24 18:26 Blood Culture - Preliminary
Blood/Venous No Growth in 24 hours- Final report to follow
Therapeutic Drug Monitoring
Random Vancomycin 15.7 ug/ml 06/21/24 06:41
--- NOTE | 2024-06-21 09:40 | PTCARENOTE ---
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 assessment otherwise unchanged from prev shift- LDL PICC with dbl conc Levo, dbl conc Arash, Vaso infusing per
work list. R Rad AL WNL. Sat 98% on 2LNC. Leger cath with scant jessica yellow urine. mouth care, valorie care, oral care done.
--- NOTE | 2024-06-21 09:45 | W.PN.GI.CBS2 ---
Addendum entered and electronically signed by Rohit Pineda MD 06/21/24 13:28:
I saw and examined the patient.
The PA's note was reviewed and I agree with the note.
Comment:
Remains critically ill. Continues to require 3 pressors for hemodynamic support (unable to wean). MELD Na 36 today. INR worsening to 3.52. Cr worsened to 1.9. Continue with abx/albumin and supportive mx. Had discussed with pt's daughter re:
critical status which she may not recover from.
Original Note:
Today's Communication / Plan
-
As per plan
Assessment / Plan
-
69 year-old female with alcoholic cirrhosis presenting with abdominal pain most suggestive of SBP. Her MELD 1 month ago was 15, 06/20/2024 was 32 and on 06/21/2024 is 39. She continues on 3 pressor support (Levophed, Arash-Synephrine and
vasopressin), continues on meropenem and micafungin. Continues to be followed by pulmonary/critical care, infectious disease, internal medicine, renal. We have reached out to her hepatology team at [facility]. She
continues on albumin replacement. We will give an additional 37.5 g now continued by 1 g/kg/day. Unfortunately because she continues to have worsening renal function as well as INR. Awaiting blood cultures and paracentesis fluid cultures. Will
give lactulose enema as patient unable to take in p.o. Discussed with daughter Nona at bedside. She states that the patient has 4 children and the person who would be making medical decisions for her mother is Margaux Sequeira ([phone]).
Impression:
SBP w/ sepsis - she is critically ill. She complained of abdominal pain for past several weeks. No other symptoms such as cough or dysuria
Septic shock
Hyponatremia
LILIBETH
Alcoholic cirrhosis
Portal hypertensive gastropathy
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
Plan:
Continue antibiotics as per recommended by infectious disease. Currently on meropenem and micafungin
Continue albumin given additional 37.5 g now continued by 1 g/kg/day
Continue pressor support currently on norepinephrine, vasopressin and phenylephrine
Worsening renal function, renal following. Hyponatremia currently getting 3% normal saline.
Give lactulose enema now
Await blood cultures and paracentesis fluid
Trend labs
Subjective
Subjective
Date of Service: June 21, 2024
Patient with eyes open but not very responsive, slight grunts when asked questions. Remains on 3 pressor support (nor epi, vasopressin, phenylephrine). No significant improvement or worsening in blood pressure. White count and lactic acid
improving. Renal function worsening (1.6-1.9). Sodium continues to decrease (123). Platelets stable (194). INR worsening, currently 3.52 up from 2.31. Ammonia is 69 up from 48 however down from 93. Currently unable to take her oral lactulose.
Will give via enema.
Objective
Data Reviewed
Laboratory Data:
Laboratory Results
06/21/24 03:05
Laboratory Results
PT 35.3 Sec (11.4-14.6) H 06/21/24 03:05
INR 3.52 06/21/24 03:05
APTT 41.6 Sec (23.4-35.0) H 06/19/24 22:00
Magnesium 1.7 mg/dl (1.6-2.3) 06/20/24 01:58
Total Bilirubin 5.4 mg/dl (0.2-1.3) H 06/21/24 03:05
AST 712 U/L (14-36) H* 06/21/24 03:05
ALT 160 U/L (0-35) H 06/21/24 03:05
Alkaline Phosphatase 40 U/L (38-126) 06/21/24 03:05
Lipase 27 U/L (23-300) 06/19/24 09:42
Vital Signs and I&O:
Vital Signs
Temp Pulse Resp BP Pulse Ox
97.6 F 83 15 93/56 98
06/21/24 08:05 06/21/24 09:15 06/21/24 09:15 06/21/24 08:14 06/21/24 09:15
I&O
06/20/24 06/21/24 06/22/24
06:59 06:59 06:59
Intake Total 2558.2 / 2702.0 3128.2 / 3204.0 227.4 / 227.4
Output Total 110 / 115 190 / 190 5 / 5
Balance 2448.2 / 2587.0 2938.2 / 3014.0 222.4 / 222.4
Physical Exam
Physical Exam
HEENT: Other (Mild scleral icterus)
Cardiology: Normal Sinus Rhythm
Pulmonary: Clear (Some mild upper airway congestion)
GI: Soft, Distended (Mildly distended), Non Tender and Normal Bowel Sounds
Extremities: Edema (+2 pitting edema to knees)
Neuro: Other (Blank stare, grunts, unable to follow commands such as squeezing hands or wiggling toes or opening mouth.)
Colonoscopy 05/30/22 (Camara) - One 4 mm polyp at the hepatic flexure, removed with
a cold snare. Resected and retrieved.
- One 7 mm polyp in the transverse colon, removed with
a hot snare. Resected and retrieved.
- One diminutive polyp in the descending colon,
removed with a jumbo cold forceps. Resected and
retrieved.
- One 12 mm polyp in the sigmoid colon, removed with a
hot snare. Resected and retrieved.
- Diverticulosis in the sigmoid colon.
EGD 05/30/22 ([facility])
- Normal esophagus.
- Type 1 isolated gastric varices (IGV1, varices
located in the fundus), without bleeding.
- Portal hypertensive gastropathy.
- Normal examined duodenum.
- No specimens collected.
EGD 03/26/2017 - Normal esophagus.
- Type 1 isolated gastric varices (IGV1, varices located
in the fundus), without bleeding.
- Portal hypertensive gastropathy.
- A single umbilicated papule (nodule) found in the
stomach. Biopsied.
- Umbilicated nodule found in the duodenum. Biopsied.
- Biopsies were taken with a cold forceps for evaluation
of celiac disease.
[2024-06-21 11:04] LABS: B.E. -8.1 mmol/L; HCO3 18.9 mmol/L (21-28); O2 Saturation % 99.9 % (94-98); PCO2 43 mmHg (32-35); PO2 142 mmHg (83-108); pH 7.25 (7.35-7.45)
--- NOTE | 2024-06-21 11:07 | PTCARENOTE ---
Increasing audible exp wheezing noted with prolonged expiration. Bipap applied 12/5 4L.
[2024-06-21 11:12] VITALS: PULSE 2; PULSE 80
[2024-06-21] MEDS: SOLU-CORTEF 50 MG IV ×3 (11:44→22:56)
[2024-06-21] MEDS: LACTULOSE ENEMA 300 ML RECTAL ×2 (11:44→22:05)
[2024-06-21] MEDS: PROTONIX IV 40 MG IV (11:45)
[2024-06-21] MEDS: NSS (PRESERVATIVE FREE) 10 ML IV (11:45)
[2024-06-21] MEDS: MYCAMINE 105 MG IV (12:41)
--- NOTE | 2024-06-21 13:09 | W.PN.HOSP.TC ---
Today's Communication/Plan
-
Monitor vital signs see plan
Still on 3 pressors, wean pressors as tolerated
High risk of intubation
Continue with lactulose
3% saline per nephrology
Monitor urine output
Maintain Lawler
Continue with antibiotics
Prognosis appears guarded, discussed with family
Ongoing goals of care discussion
Assessment / Plan
Assessment / Plan
General: Well Developed
HEENT: Moist mucous membranes, Oxygen (Nasal Cannula) and Other (Icteric)
Respiratory: Clear and Non Labored Respirations
Cardiac: S1/S2 and Regular Rhythm
GI: Soft, Tender
Musculoskeletal: Other (+4 pitting edema bilateral lower extremity)
: lawler
Skin: Warm, Dry and Jaundice
Neuro: AAox1
Psych: Calm
Worsening Abdominal Pain and Distention with septic shock 2/2 Spontaneous Bacterial Peritonitis
now getting lethargic; high risk of intubation
GI following
Continue with antibiotics, infectious disease added micafungin
s/p para, suggestive of SBP
ID following; cw abx and antifungal
Albumin
Currently on 3 pressors, wean pressors as tolerated
monitor in ICU
NPO with sips for now; monitor
Follows up with Dr. Camara and Dr. Lozoya outpatient. [facility] hepatology was notified by Dr Pineda, no need for referral yet
MELD now 39
lactulose enema; monitor ammonia
echo pending
Started steroids
NPO
Suspect TME Likely secondary to hepatic encephalopathy and septic shock
Continue to monitor
CT scan negative for CVA
Consider neurology evaluation if symptoms do not improve
LILIBETH
Nephrology following
Will monitor for CRRT need
Monitor BMP
Currently has Lawler catheter, continue to monitor urine output
Supratherapeutic INR secondary to synthetic dysfunction from liver cirrhosis
Lactic acidosis
Continue to monitor
Hyponatremia, suspect hypervolemic hyponatremia
3% saline per nephro
-Hold Lasix for now in setting of low blood pressure
Alcohol Cirrhosis
Associated elevated LFTs
-MELD-Na has increased from 15 last month to 25
-Family notes they have began discussions about possible transplant
Hepatic Encephalopathy
Coagulopathy noted, continue to monitor
-Continue Lactulose
Gastric Varies / Portal Hypertensive Gastropathy
-Hold nadolol due to low blood pressure
-Continue Protonix
DVT proph: SCDs
Code Status: Full Code
Total Critical Care Time__48___ minutes. I was immediately available to the patient and staff. I personally examined, reviewed labs, diagnostic images/reports, interpretations, treatment plans, discussed patient care with other providers and
family or caregivers (if patient is unable to make decisions), entered orders as appropriate and documented the medical record.
Anticipated Discharge: > 48 hours
Subjective/Interval History
-
Date of Service: June 21, 2024
lethargic
Objective Data
-
Labs:
Laboratory Results
06/21/24 06/21/24 06/21/24
03:05 10:57 16:00
WBC 20.5 H
Hgb 9.5 L
Hct 27.6 L
Plt Count 194
PT 35.3 H
INR 3.52
HCO3 18.9 L
Sodium 123 L Pending
Potassium 4.6 Pending
Chloride 90 L Pending
Carbon Dioxide 17 L Pending
BUN 27 H Pending
Creatinine 1.9 H Pending
Glucose 150 H Pending
Calcium 7.9 L Pending
Total Bilirubin 5.4 H
AST 712 H*
ALT 160 H
Alkaline Phosphatase 40
Vital Signs:
Vital Signs
Temp Pulse Resp BP Pulse Ox
97.6 F 80 14 93/56 96
06/21/24 11:27 06/21/24 11:27 06/21/24 11:27 06/21/24 08:14 06/21/24 11:27
I&O
06/20/24 06/21/24 06/22/24
06:59 06:59 06:59
Intake Total 2558.2 / 2702.0 3128.2 / 3204.0 503.7 / 503.7
Output Total 110 / 115 190 / 190
Balance 2448.2 / 2587.0 2938.2 / 3014.0 478.7 / 478.7
--- NOTE | 2024-06-21 13:25 | W.PN.ID1 ---
Date of Service
Date of Service: June 21, 2024
Today's Communication
Continue broad-spectrum abx's for now.
Assessment / Plan
# Spontaneous bacterial peritonitis
# Decompensated ETOH cirrhosis
# Septic shock remains on 3 pressors
# multisytem organ failure - LILIBETH worse
# Decreased mental status - worse
- 06/20 s/p paracentesis 2.5 L ascites: 6,983 wbc, 79% polys
Cx neg <24h
- blood cx.
-Continue meropenem, IV vancomycin (dosing by pharmacy), and micafungin for now
- Monitor renal function closely, adjust abx dosing prn.
-Will de-escalate when further data available.
- Follow vitals, WBC
- prognosis guarded
Chief Complaint
-: Clinical Sepsis
Subjective / Review of Systems
Pt unresponsive today.
Vital Signs / Physical Exam
Vital Signs
Vital Signs
Temp Pulse Resp BP Pulse Ox
97.6 F 80 14 93/56 96
06/21/24 11:27 06/21/24 11:27 06/21/24 11:27 06/21/24 08:14 06/21/24 11:27
Physical Exam
Constitutional: Acutely Ill
Cardiovascular: Regular Rate and S1/S2
Pulmonary: Clear (anterior)
Gastrointestinal: Soft, Tender (reacts to pain) and Distended
Extremities: Edema (decreased BLE)
Skin: Jaundice
Neurological: Other (Does not follow commands)
Lines: PICC (LUE)
Objective Data
Lab Data
Lab Results
06/21/24 03:05
PT 35.3 Sec (11.4-14.6) H 06/21/24 03:05
INR 3.52 06/21/24 03:05
APTT 41.6 Sec (23.4-35.0) H 06/19/24 22:00
Estimated Creat Clear 30 ml/min 06/21/24 03:05
Lactic Acid 3.0 mmol/L (0.7-2.0) H 06/21/24 09:48
Total Bilirubin 5.4 mg/dl (0.2-1.3) H 06/21/24 03:05
AST 712 U/L (14-36) H* 06/21/24 03:05
ALT 160 U/L (0-35) H 06/21/24 03:05
Alkaline Phosphatase 40 U/L (38-126) 06/21/24 03:05
Most recent labs reviewed.
Micro Results:
06/20/24 12:38 Blood Culture - Preliminary
Blood/Venous No Growth in 24 hours- Final report to follow
06/20/24 11:16 Body Fluid Culture - Preliminary
Peritoneal Fluid No Growth After 18-24 Hours
Gram Stain - Preliminary
06/19/24 18:26 Blood Culture - Preliminary
Blood/Venous No Growth in 24 hours- Final report to follow
06/19/24 CT a/p: Cirrhotic morphology with evidence of portal hypertension and moderate volume ascites. Cholelithiasis. There is gallbladder wall thickening which is likely secondary to chronic liver disease. Colonic diverticulosis. There is
questionable wall thickening along the sigmoid colon and proximal ascending colon which may represent colitis. Complex ventral hernia containing fat and ascites.
06/19/24 CXR: No active cardiopulmonary disease. The tip of the PICC line is at the cavoatrial junction
[2024-06-21] MEDS: FLEXBUMIN 50 IV (13:38)
--- NOTE | 2024-06-21 13:45 | PTCARENOTE ---
Lactulose enema given with no BM noted at this time.
[2024-06-21 14:02] LABS: B.E. -8.4 mmol/L; HCO3 17.9 mmol/L (21-28); O2 Saturation % 99.9 % (94-98); PCO2 39 mmHg (32-35); PO2 123 mmHg (83-108); pH 7.27 (7.35-7.45)
--- NOTE | 2024-06-21 14:37 | CM ---
CM following re: discharge planning.
Discussed in Rounds, reviewed pt's chart, met with pt and family at bedside. Both pt's spouse and pt's daughter participated in Rounds meeting.
Pt is a 69 year old female, admitted with primary dx of Septic shock. Per Rounds meeting, pt very lethargic, briefly opens eyes, follows no commands, remains critically ill, minimally responsive, on pressors with renal failure, worsening liver
failure, continue supportive care.
Pt lives with spouse 2SDH, 2 steps to enter, has 3 supportive children. 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
PCP: Elbert Sanches
Pharmacy: [facility].
D/C plan: uncertain at this time and will depend on pt's progress.
CM will follow with discharge plan updates as hospitalization progresses
[2024-06-21] MEDS: DILAUDID 0.25 MG IV (16:14)
--- NOTE | 2024-06-21 16:20 | RESPNOTE ---
ABG obtained from [facility] while patient on Bipap / with 2L.
--- NOTE | 2024-06-21 16:25 | PTCARENOTE ---
Addendum entered by Tavia Collins RN 06/21/24 16:26:
Pt moaning, not verbalizing when Bipap mask removed. Dilaudid given after discussion with daughters.
Original Note:
Bipap increased to 14/5 4L. ABG sent. Support Director notified about oliguria.
[2024-06-21 16:28] LABS: B.E. -8.9 mmol/L; HCO3 17.5 mmol/L (21-28); O2 Saturation % 97.2 % (94-98); PCO2 39 mmHg (32-35); PO2 75 mmHg (83-108); pH 7.26 (7.35-7.45)
[2024-06-21 17:04] LABS: Blood Urea Nitrogen 29 mg/dl (7-17); Calcium 7.9 mg/dl (8.4-10.2); Carbon Dioxide 16 mmol/L (22-30); Chloride 90 mmol/L (98-107); Estimated Creatinine Clearance 25 ml/min; Glucose 133 mg/dl (70-99); Potassium 4.6 mmol/L (3.5-5.1); Sodium 121 mmol/L (135-145); eGFR 22.59
[2024-06-21] MEDS: LASIX 80 MG IV (17:16)
[2024-06-21 18:04] VITALS: PULSE 2; PULSE 93
[2024-06-21 19:52] VITALS: PULSE 2; PULSE 81
[2024-06-21 19:58] LABS: B.E. -8.3 mmol/L; HCO3 18.8 mmol/L (21-28); Ionized Calcium 1.11 mMOL/L (1.15-1.33); O2 Saturation % 99.8 % (94-98); PCO2 45 mmHg (32-35); PO2 109 mmHg (83-108); Potassium 4.3 mMOL/L (3.5-5.1); pH 7.23 (7.35-7.45)
[2024-06-21 19:59] LABS: Sodium 119 mMOL/L (136-145)
[2024-06-21] MEDS: NARCAN 0.4 MG IV (20:20)
--- NOTE | 2024-06-21 20:45 | PTCARENOTE ---
Addendum entered by Natalie Muller RN 06/21/24 23:27:
1999- right radial sidney zeroed and functioning
Original Note:
pt received lethargic, minimally responsive- pupils left 5 right 6, pt given narcan- herbert nieves at bedside. pt moaning and groaning, not following commands or withdrawling to pain. sister at bedside and updated by herbert nieves. levo, vaso and vega gtts
all continue as per order. 3% infusing as well. stat abg sent. plan of care continually discussed with herbert nieves. nsr with 1st degree on monitor, remains on bipap with inspiratory and expiratory wheezing. all safety precautions in place, call farmer
within reach.
--- NOTE | 2024-06-21 21:25 | W.PN.ANESINT ---
Anesthesia Intubation Note
- Intubation Note
Intubation Note:
Diagnosis: respiratory distress
Blade: glidescope
Tube Size: 8.0 HiLo
Depth: 21cm
Side Taped: center
Drugs Used: 150 mg propofol, 50mg rocuronium 100mcg phenylephrine
Grade View: 1
EtCO2 Present: yes
Atraumatic: yes
Attempts: 1
Insertion Start and Stop Time: 2044 start 2046 stop
SaO2 Pre: 100
SaO2 Post: 100
Glidescope Used: yes
Other Airway Adjustments: n/a
Pre-Oxygenated: yes
Portable Chest X-Ray: yes
RSI: yes
Suctioned: clear liquids
Bilateral Breath Sounds Confirmed: yes
Vent Settings:
Settings per ___Attending Physician
Ana Gil CRNA
[2024-06-21 22:35] LABS: B.E. -7.3 mmol/L; HCO3 17.9 mmol/L (21-28); PCO2 34 mmHg (32-35); PO2 178 mmHg (83-108); pH 7.33 (7.35-7.45)
--- NOTE | 2024-06-21 22:45 | PTCARENOTE ---
pt hypothermic- elda hugger applied as per order.
[2024-06-21 22:48] LABS: Ammonia 67 umol/L (9-30)
[2024-06-21 22:51] LABS: Blood Urea Nitrogen 30 mg/dl (7-17); Calcium 7.8 mg/dl (8.4-10.2); Carbon Dioxide 16 mmol/L (22-30); Chloride 91 mmol/L (98-107); Estimated Creatinine Clearance 25 ml/min; Glucose 136 mg/dl (70-99); Potassium 4.4 mmol/L (3.5-5.1); Sodium 123 mmol/L (135-145); eGFR 22.59
[2024-06-21] MEDS: SUBLIMAZE 25 MCG IV (22:52)
--- NOTE | 2024-06-21 23:32 | PTCARENOTE ---
Rashad NIEVES at bedside at approx 2100- decision made to intubate patient. anesthesia at bedside- intubated with #8 ett 21cm at the lip. cxr completed. per rashad nieves ordered to not insert ogt at this time, ordered fecal management system for loose
stools and rectal lactulose enema. rashad nieves aware of inability for all of enema to dwell. no further orders at this time. fentanyl prn bolus given. family at bedside and updated. pressors being weaned per protocol to maintain map >65. pt
intermittently withdrawling to pain, non purposeful movements.
[2024-06-22] VITALS (12 sets, daily range): BP systolic 70–130; BP diastolic 49–65; BMI 38.3
[2024-06-22] MEDS: FLEXBUMIN 100 IV ×3 (00:18→02:32)
--- NOTE | 2024-06-22 00:29 | PTCARENOTE ---
Addendum entered by Natalie Muller RN 06/22/24 00:36:
edit- herbert nieves also aware of pt labs, no new orders
Original Note:
pt noted with intermittent twitching and tick like movements, herbert nieves at bedside, no new orders.
[2024-06-22] MEDS: SUBLIMAZE 25 MCG IV (01:24)
[2024-06-22] MEDS: CALCIUM CHLORIDE 10% SYRINGE 60 MG IV (02:54)
--- NOTE | 2024-06-22 03:52 | W.PN.UPDATE ---
Update Note
Progress Note Update
Required intubation for declining mental status. �Pt not following commands, unable to communicate, concern for airway protection. Patient was able to communicate in the AM. Trial Narcan (recent Dilaudid given) patient marginally response, making
incomprehensible sounds moving all extremities spontaneously and still not withdrawing to pain. Family at bedside and updated throughout entire process.�
Ammonia level drawn 67, lactose enema giving through fectal management system. ��
[2024-06-22] MEDS: SUBLIMAZE 50 MCG IV ×4 (04:09→10:38)
[2024-06-22 04:27] LABS: B.E. -8.2 mmol/L; HCO3 16.6 mmol/L (21-28); Ionized Calcium 1.27 mMOL/L (1.15-1.33); PCO2 30 mmHg (32-35); PO2 169 mmHg (83-108); Potassium 3.9 mMOL/L (3.5-5.1); Sodium 124 mMOL/L (136-145); pH 7.35 (7.35-7.45)
[2024-06-22 04:28] LABS: O2 Therapy 40%
--- NOTE | 2024-06-22 04:41 | PTCARENOTE ---
pt restless at times in bed, fentanyl given as per order. pt still does not follow commands. assessment unchanged. labs sent as per order. am care provided, turned and repositioned
[2024-06-22 04:53] LABS: INR 4.44; PT 42.5 Sec (11.4-14.6)
[2024-06-22 04:59] LABS: Hematocrit 18.7 % (37.0-47.0); Hemoglobin 6.7 g/dL (12.0-16.0); Mean Corp Hgb Conc. 35.8 g/dL (33.0-37.0); Mean Corpuscular Hgb 31.6 pg (27.0-31.0); Mean Corpuscular Volume 88.2 fL (81.0-99.0); Red Blood Cell Count 2.12 10^6/uL (4.20-5.40); Red Cell Dist. Width 14.5 % (11.5-14.5); White Blood Cell Count 8.7 10^3/uL (4.8-10.8)
[2024-06-22 05:13] LABS: ALT (SGPT) 78 U/L (0-35); AST (SGOT) 228 U/L (14-36); Albumin 4.2 g/dl (3.5-5.0); Alkaline Phosphatase 26 U/L (38-126); Blood Urea Nitrogen 31 mg/dl (7-17); Calcium 9.4 mg/dl (8.4-10.2); Carbon Dioxide 14 mmol/L (22-30); Chloride 92 mmol/L (98-107); Direct Bilirubin 2.7 mg/dl (0.0-0.4); Estimated Creatinine Clearance 25 ml/min; Glucose 121 mg/dl (70-99); Sodium 126 mmol/L (135-145); Total Bilirubin 4.6 mg/dl (0.2-1.3); Total Protein 6.2 g/dl (6.3-8.2); eGFR 22.59
[2024-06-22 05:14] LABS: Vancomycin Random 13.7 ug/ml
[2024-06-22] MEDS: SODIUM BICARBONATE 50 MEQ IV (05:21)
[2024-06-22] MEDS: SOLU-CORTEF 50 MG IV ×4 (05:21→23:51)
[2024-06-22 05:42] LABS: Hematocrit 18.6 % (37.0-47.0); Hemoglobin 6.7 g/dL (12.0-16.0); Mean Corpuscular Hgb 31.5 pg (27.0-31.0); Mean Corpuscular Volume 87.3 fL (81.0-99.0); Mean Platelet Volume 10.2 fL (7.4-10.4); Platelet Count 89 10^3/uL (130-400); Red Blood Cell Count 2.13 10^6/uL (4.20-5.40); Red Cell Dist. Width 14.6 % (11.5-14.5); White Blood Cell Count 8.4 10^3/uL (4.8-10.8)
[2024-06-22] MEDS: SUBLIMAZE 100 IV ×2 (05:45→23:51)
--- NOTE | 2024-06-22 05:56 | PTCARENOTE ---
fentanyl gtt initiated as per order. critical labs report to herbert nieves.
[2024-06-22 06:06] LABS: Platelet Count 83 10^3/uL (130-400)
[2024-06-22 06:10] LABS: Absolute Neutrophils -Man Diff 7.3 10^3/uL (1.4-6.5); Band Neutrophils 23 % (0-3); Mean Platelet Volume 9.2 fL (7.4-10.4); Segmented Neutrophils 61 % (42-75)
[2024-06-22 06:11] LABS: Eosinophils 1 % (0-6); Lymphocytes 4 % (20-51); Monocytes 11 % (2-9); Normal RBC Morphology No; Ovalocytes Occasional; Platelets Checked Yes; Target Cells 1+; Total Cells Counted 100; Toxic Granulation 1+
[2024-06-22] MEDS: PITRESSIN 100 IV (06:27)
[2024-06-22] MEDS: MERREM 500 MG IV ×3 (07:51→19:56)
[2024-06-22] MEDS: PROTONIX IV 40 MG IV (07:52)
[2024-06-22] MEDS: STERILE WATER FOR INJECTION 10 ML IV ×3 (07:53→19:56)
[2024-06-22] MEDS: DUPHALAC/CHRONULAC PO ×2 (07:54→19:13)
[2024-06-22] MEDS: NSS (PRESERVATIVE FREE) 10 ML IV (07:54)
--- NOTE | 2024-06-22 08:04 | W.PN.NEPH.PH ---
Today's Communication / Plan
-
consult IR for HD catheter
CRRT to be initiated
Assessment/Plan
-
Assessment
Alcoholic cirrhosis
Hypotension
Abdominal pain
Sepsis
Lactic acidosis
Metabolic acidosis
LILIBETH
Hyponatremia
Plan
LILIBETH worsening to 2.3, and UOP ~370cc
patient intubated overnight
Hyponatremia persists at 126, after 3% and IV lasix provided last evening
weights up 10Kg but CXR clear per review on 06/21
metabolic acidosis exacerbating
anemia worsening to 6.7 now receiving blood products
Discussed with daughter who wishes to proceed forth with CRRT and to understands risk and limited benefits of intervention
We will consult IR for dialysis catheter placement
CRRT orders to be written
Remains hemodynamically unstable on multiple pressor support
Keep mean arterial pressure greater than 65 with pressors
Empiric antibiotics for SBP
Follow cultures
Previously discussed with the patient as well as her family at this time at great length. Factors in her acute kidney injury include contrast as well as hypotension and sepsis. I suspect that her creatinine will continue to rise over the next 48
hours. We will follow her urine output carefully. She may require dialysis. If she does she will require continuous replacement therapy. They understand.
Critical care time spent 38 minutes
-
-
Date of Service: June 22, 2024
CC / HPI / ROS
-
Chief Complaint:
Acute kidney injury
History of Present Illness:
Remains hemodynamically unstable on multiple pressor support
Creatinine up to 2.3
Hyponatremia persistent 126
metabolic acidosis worsening
now intubated
Review of Systems:
Status post paracentesis for 2-1/2 L
Hypothermic
Oliguric via Leger
weights up 10KG
Labs
-
Labs:
WBC 8.4 10^3/uL (4.8-10.8) 06/22/24 05:18
RBC 2.13 10^6/uL (4.20-5.40) L 06/22/24 05:18
Hgb 6.7 g/dL (12.0-16.0) L* 06/22/24 05:18
Hct 18.6 % (37.0-47.0) L* 06/22/24 05:18
Plt Count 89 10^3/uL (130-400) L 06/22/24 05:18
Sodium 126 mmol/L (135-145) L 06/22/24 04:20
Potassium 4.0 mmol/L (3.5-5.1) 06/22/24 04:20
Chloride 92 mmol/L (98-107) L 06/22/24 04:20
Carbon Dioxide 14 mmol/L (22-30) L* 06/22/24 04:20
BUN 31 mg/dl (7-17) H 06/22/24 04:20
Creatinine 2.3 mg/dL (0.6-1.0) H 06/22/24 04:20
eGFR 22.59 06/22/24 04:20
Glucose 121 mg/dl (70-99) H 06/22/24 04:20
Calcium 9.4 mg/dl (8.4-10.2) D 06/22/24 04:20
Albumin 4.2 g/dl (3.5-5.0) 06/22/24 04:20
Physical Exam
-
Vital Signs:
Vital Signs
Temp Pulse Resp BP Pulse Ox
97.1 F 84 18 109/49 99
06/22/24 08:00 06/22/24 07:43 06/22/24 07:43 06/22/24 07:43 06/22/24 05:45
Cardiovascular:: Regular rate and rhythm
Respiratory:: Bilateral: Coarse
Lung Excursion:: Normal
Abdomen:: Distended and Soft
Bowel Sounds:: Decreased
Extremity Edema:: +2: Bilateral:
Leger Catheter: Yes
Other Findings::
GEN:intubated
--- NOTE | 2024-06-22 08:05 | PHA.VAN.FU ---
Vancomycin Assessment / Plan
- Assessment
Renal Function: Stable
WBC's are: WNL
Concomitant Antimicrobials: meropenem, micafungin
- Assessment - Therapeutic Drug Monitoring
Random Level: 13.7 - drawn ~21.5H after previous level of 15.7
Calculated ke: 0.0063
Calculated half life (H): 110
Random level specimen today was not protected from light and may have had additional degradation of sample
Patient starting CVVHD at 1.5 L/H today
- Dosing Plan
Dosing by Level: Re-dose today (Vanc 1000mg)
- Monitoring Plan
Random Level: 06/23 600
- Follow Up
Pharmacy will continue to follow.
Vancomycin Follow UP
- -
Patient Age: 69
Patient Sex: Female
Vancomycin Day #: 3
Indication: Gi / Intra-Abdominal
Requesting Provider: Hemanth
Pertinent Antimicrobial Allergies:
no pertinent antibiotic allergies
Height / Weight:
Height 5 ft 2 in
Actual Weight 94.8 kg
IBW in k.1
Adjusted BW in k.3
Pertinent Past Medical History: BMI ~37
- Vital Signs / Lab Results
Temp Pulse Resp BP Pulse Ox
97.1 F 84 18 109/49 99
06/22/24 08:00 06/22/24 07:43 06/22/24 07:43 06/22/24 07:43 06/22/24 05:45
Lab Results - Hematology
06/19/24 06/20/24 06/21/24
09:42 01:58 03:05
WBC 5.9 24.0 H 20.5 H
Band Neutrophils 27 H
06/22/24 06/22/24
04:20 05:18
WBC 8.7 8.4
Band Neutrophils 23 H
Lab Results - Chemistry
06/19/24 06/20/24 06/20/24
09:42 01:58 12:00
BUN 18 H 19 H Cancelled
Creatinine 0.8 1.6 H Cancelled
Estimated Creat Clear 69 34 Cancelled
Albumin 2.6 L 2.6 L
06/20/24 06/21/24 06/21/24
12:35 03:05 16:21
BUN 23 H 27 H 29 H
Creatinine 1.6 H 1.9 H 2.3 H
Estimated Creat Clear 35 30 25
Albumin 2.8 L 3.2 L
06/21/24 06/22/24
22:30 04:20
BUN 30 H 31 H
Creatinine 2.3 H 2.3 H
Estimated Creat Clear 25 25
Albumin 4.2
06/19/24 06/19/24 06/20/24
17:41 22:00 01:58
Lactic Acid 4.8 H* 6.4 H* 7.0 H*
06/20/24 06/20/24 06/20/24
06:18 12:37 17:40
Lactic Acid 6.4 H* 5.2 H* 4.0 H*
06/20/24 06/21/24 06/21/24
22:34 03:05 05:48
Lactic Acid 3.4 H 3.3 H 3.2 H
06/21/24
09:48
Lactic Acid 3.0 H
Microbiology Results
06/19/24 18:26 Blood Culture - Preliminary
Blood/Venous No Growth in 48 hours- Final report to follow
06/20/24 12:38 Blood Culture - Preliminary
Blood/Venous No Growth in 24 hours- Final report to follow
06/20/24 11:16 Body Fluid Culture - Preliminary
Peritoneal Fluid No Growth After 18-24 Hours
Gram Stain - Preliminary
Therapeutic Drug Monitoring
Random Vancomycin 13.7 ug/ml 06/22/24 04:20
[2024-06-22] MEDS: DUONEB 3 ML INH ×4 (08:10→20:56)
--- NOTE | 2024-06-22 08:28 | W.PN.INTV ---
Today's Communication / Plan
Recommendations
Adjust ventilator
Wean FiO2
Not a weaning candidate
Pressors
Vascular access
Continuous renal replacement therapy if access acquired
CODE STATUS change noted
Assessment
-
69-year-old woman with history of alcoholic cirrhosis came to the hospital complaining of increased abdominal girth, abdominal pain, poor p.o. intake, found to be hypotensive. Transferred to the intensive care unit due to lack of response to IV
fluids. Started on vasopressors 06/19/2024. Suspicious for spontaneous bacterial peritonitis
Septic shock
Worsening abdominal distention/abdominal pain
Possible spontaneous bacterial peritonitis vs ? Less likely colitis
CT abdomen pelvis 06/19/2024:Cirrhotic morphology with evidence of portal hypertension and moderate volume ascites.
Cholelithiasis. There is gallbladder wall thickening which is likely secondary to chronic liver disease.
Colonic diverticulosis. There is questionable wall thickening along the sigmoid colon and proximal ascending colon which may represent colitis.
Complex ventral hernia containing fat and ascites.
Respiratory failure requiring intubation
Intubated 06/22/2024
Extubated
Hyponatremia acute kidney injury
Anion gap metabolic acidosis-increased lactic acid
Leukocytosis
Anemia
Elevated LFTs
Elevated ammonia
Limited DNR-no chest compressions or shocking
Conditions present prior admission:
Alcoholic cirrhosis since 2017
Portal hypertensive gastropathy
Hypervolemic hyponatremia
Ventral hernia history of asthma only follows up with primary care
Former alcohol use quit in 2017
Plan:
Remains critically ill minimally responsive, on the ventilator, on pressors with renal failure and worsening liver failure
Intubated mechanically ventilated
Ventilator settings reviewed
Wean FiO2
Follow ABG
Adjust ventilator accordingly
Follow airway pressures and avoid barotrauma and volutrauma
Intensified nebulizers-significant wheezing on exam though may have 'cardiac' component with renal failure and fluid overload
Chest x-ray 06/22/2024-NAD, ET tube 4 cm above adan
Aspiration precautions
Cultures reviewed
Broad-spectrum empiric antibiotics to cover spontaneous bacterial peritonitis
Norepinephrine and vasopressin and Arash-Synephrine as needed-consider Giapreza
Trend lactate
IV fluids per nephrology
Initiate hydrocortisone 50 mg IV every 6 hours-random cortisol was 60, however, surviving sepsis guideline revision recommendations suggest consideration
Bicarb is needed
Monitor renal function
Nephrology following-correspondence reviewed-reviewed with Dr. Pickett
Replace electrolytes
Continuous renal replacement therapy-prognosis poor
Interventional radiology contacted-they are requesting for INR reversal
Will provide 2 units of FFP and follow INR
Echocardiogram 06/21/2024-EF 55-60%, aortic sclerosis, PA systolic 38
Gastroenterology following
Status post paracentesis-consider repeat
Antibiotics-meropenem/daptomycin and micafungin
Albumin
Contacted tertiary center-no need for referral
Nutrition per gastroenterology
Lactulose [place]
PPI
Follow ammonia
Monitor neurologic status
CT head without obvious acute infarct
Consider neurology evaluation though TME likely due to sepsis, hypoperfusion, and hepatic encephalopathy
DVT prophylaxis-subcu heparin every 12-INR elevated-hold heparin
GI prophylaxis-on pantoprazole
Dr. Vaz reviewed with multiple family members including and 2 daughters at the bedside 06/22/2024-overall poor prognosis-they understand-POA now wants limited DNR-no chest compressions or shocking
Dr. Vaz reviewed with daughter and at the bedside-06/21/2024 updated on current clinical situation, critical nature of her multi organ failure, morbidity and high mortality rate unfortunately and discussed CODE STATUS as well
Critical care statement: A total of 50 minutes of critical care time was provided for this patient today. This includes management of unstable vital signs, evaluation of the patient at bedside, reviewing the patient's pertinent medical records
including radiographs, management of respiratory failure, noninvasive ventilation, following ABGs, pressor management, sepsis management, microbiology, laboratory evaluations, and discussion with primary team, consultants, pharmacy, nutrition,
physical therapy, case management, charge nurse, critical care nursing, and respiratory therapy.
Subjective Dataa
Subjective Data
Date of Service:
Date of Service: June 22, 2024
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
Subjective:
Deteriorated overnight, required intubation, has coagulopathy, fluid overloaded, needs dialysis, no increased secretions, review systems unobtainable
Review of Systems
General: Unobtainable - Pat Unresp and Other
Objective Data
Data Reviewed
Vital Signs / I&O / Oxygen:
Vital Signs
Temp Pulse Resp BP Pulse Ox
97.3 F 87 17 120/58 97
06/22/24 08:01 06/22/24 08:14 06/22/24 08:14 06/22/24 08:01 06/22/24 08:14
Intake and Output
06/21/24 06/22/24 06/23/24
06:59 06:59 06:59
Intake Total 3128.2 / 3204.0 2013.3 / 2012.3 0 / 0
Output Total 190 / 190 375 / 375
Balance 2938.2 / 3014.0 1638.3 / 1638.3 0 / 0
SaO2 [A/C] 40
SaO2 97
Nasal Cannula flow liters per 2
minute
Physical Exam
General: Respiratory Distress (Mild at rest)
HEENT: Normocephalic
Cardiovascular: Regular Rhythm
Respiratory: Wheeze (Diffuse expiratory), Crackles (Basilar), Rhonchi (n), Accessory Resp Muscle Use (Mild), Stridor (n), ET Tube and Other (Decreased breath sounds both bases)
GI: Distended (Mildly tender, ascites.) and Other ( Ventral hernia not tender not erythematous)
Neurology: Unresponsive, Other and Other
Skin: Warm, Good Color, Cyanosis (n) and Rash
Labs/Micro/Reports
Lab Data
06/22/24 05:18
06/22/24 04:20
Laboratory Results
06/21/24 06/21/24 06/21/24
10:57 13:54 16:21
PT
INR
pH 7.25 L 7.27 L 7.26 L
pCO2 43 H 39 H 39 H
pO2 142 H 123 H 75 L
HCO3 18.9 L 17.9 L 17.5 L
O2 Delivery Level
06/21/24 06/21/24 06/22/24
19:50 22:30 04:20
PT 42.5 H
INR 4.44
pH 7.23 L 7.33 L 7.35
pCO2 45 H 34 30 L
pO2 109 H 178 H 169 H
HCO3 18.8 L 17.9 L 16.6 L
O2 Delivery Level 40%
Microbiology
06/19/24 18:26 Blood/Venous Blood Culture - Preliminary
No Growth in 48 hours- Final report to follow
06/20/24 12:38 Blood/Venous Blood Culture - Preliminary
No Growth in 24 hours- Final report to follow
06/20/24 11:16 Peritoneal Fluid Body Fluid Culture - Preliminary
No Growth After 18-24 Hours
06/20/24 11:16 Peritoneal Fluid Gram Stain - Preliminary
--- NOTE | 2024-06-22 08:39 | W.PN.GI.CBS2 ---
Today's Communication / Plan
-
Diagnostic paracentesis today at 48hrs from treatment
IV albumin
Pancytopenia noted
Case d/w renal and will update transplant hepatology Dr Lozoya
Assessment / Plan
-
69 year-old female with alcoholic cirrhosis presenting with abdominal pain most suggestive of SBP. Her MELD 1 month ago was 15, 06/20/2024 was 32 and on 06/21/2024 is 39. She continues on 3 pressor support (Levophed, Arash-Synephrine and
vasopressin), continues on meropenem and micafungin. Continues to be followed by pulmonary/critical care, infectious disease, internal medicine, renal. We have reached out to her hepatology team at [facility]. She
continues on albumin replacement. We will give an additional 37.5 g now continued by 1 g/kg/day. Unfortunately because she continues to have worsening renal function as well as INR. Awaiting blood cultures and paracentesis fluid cultures. Will
give lactulose enema as patient unable to take in p.o. Discussed with daughter Nona at bedside. She states that the patient has 4 children and the person who would be making medical decisions for her mother is Margaux Sequeira ([phone]).
Impression:
SBP w/ sepsis - she is critically ill
On 2 pressors 06/22
Septic shock
Pancytopenia
Hyponatremia
LILIBETH
Alcoholic cirrhosis
Portal hypertensive gastropathy
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
Recommendations
Continue antibiotics as per recommended by infectious disease.
Repeat diagnostic (not large volume) paracentesis today at 48hrs post treatment to assess response to abx
Continue pressor support currently on vasopressin and phenylephrine wean as tolerates
Worsening renal function, renal following plan for CRRT today
Give lactulose enema now
Blood cultures thus far negative. Awaiting gram stains
Trend labs
Avoid hepatoxins.
Family updated bedside. Will follow with you.
Subjective
Subjective
Date of Service: June 22, 2024
Patient was intubated overnight. Levophed weaned off. She is on arash and vasopressor today. Rectal management tube placed getting lactulose enemas. No bloody stools
Objective
Data Reviewed
Laboratory Data:
Laboratory Results
06/22/24 05:18
06/22/24 04:20
Laboratory Results
PT 42.5 Sec (11.4-14.6) H 06/22/24 04:20
INR 4.44 06/22/24 04:20
APTT 41.6 Sec (23.4-35.0) H 06/19/24 22:00
Magnesium 1.7 mg/dl (1.6-2.3) 06/20/24 01:58
Total Bilirubin 4.6 mg/dl (0.2-1.3) H 06/22/24 04:20
AST 228 U/L (14-36) H 06/22/24 04:20
ALT 78 U/L (0-35) H 06/22/24 04:20
Alkaline Phosphatase 26 U/L (38-126) L 06/22/24 04:20
Lipase 27 U/L (23-300) 06/19/24 09:42
Vital Signs and I&O:
Vital Signs
Temp Pulse Resp BP Pulse Ox
97.3 F 87 17 120/58 97
06/22/24 08:01 06/22/24 08:14 06/22/24 08:14 06/22/24 08:01 06/22/24 08:14
I&O
06/21/24 06/22/24 06/23/24
06:59 06:59 06:59
Intake Total 3128.2 / 3204.0 2012. / 2012. 0 / 0
Output Total 190 / 190 375 / 375
Balance 2938.2 / 3014.0 1638.3 / 1638.3 0 / 0
Physical Exam
Physical Exam
GEN: No acute distress, sedated but arousable
HEENT: +icteric, extraocular movements intact, clear oropharynx without exudates, ETT in place
GI: soft, obese mildly-distended, hypo active bowel sounds, no hepatosplenomegaly
EXT: warm, well perfused, 2+ edema bilaterally
NEURO: non focal sedated
--- NOTE | 2024-06-22 09:00 | PTCARENOTE ---
Assumed care of pt. VSS with levophed and vasopressin gtts. Pt not following commands, spontaneous mvmt not purposful. Pupils continue to be unequal but reactive. NSR with 2+ anasarca. Intubated, tolerating vent settings, occasional cough,
clear-white sputum. FMS in place draining liquid brown stool. Leger in place draining scant dark yellow urine. Jaundice present. Plans discussed with family at bedside.
--- NOTE | 2024-06-22 09:56 | W.PN.UPDATE ---
Update Note
Progress Note Update
Discussed need for catheter with IR
IR will not place the catheter unless the INR is less than 2.5
Discussed with ICU attending as we will likely have to provide FFP to correct coagulopathy
--- NOTE | 2024-06-22 10:12 | CHAP ---
Emotional and spiritual support provided for Ms. Szymanski and family at bedside. Prayer blanket given, medical research tech request relayed to Fr. Diaz who is length control tester today. Family asked for additional rosaries which I provided. Will follow as able.
[2024-06-22] MEDS: DIPRIVAN 100 IV ×3 (11:47→23:51)
[2024-06-22] MEDS: LACTULOSE ENEMA 300 ML RECTAL (11:49)
--- NOTE | 2024-06-22 11:51 | W.PN.ID1 ---
Date of Service
Date of Service: June 22, 2024
Today's Communication
Continue Vanco, meropenem.
Assessment / Plan
# Spontaneous bacterial peritonitis
# Decompensated ETOH cirrhosis
# Septic shock remains on 3 pressors
# multisytem organ failure
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
# Hepatic Encephalopathy
- 06/20 s/p paracentesis 2.5 L ascites: 6,983 wbc, 79% polys
Ascites Cx neg to date
- blood cx neg to date
-Continue meropenem, IV vancomycin (dosing by pharmacy)
- DC micafungin.
-Will de-escalate when further data available.
- Follow vitals, WBC
- Poor prognosis
Chief Complaint
-: Clinical Sepsis
Subjective / Review of Systems
Events noted. Pt intubated overnight.
Vital Signs / Physical Exam
Vital Signs
Vital Signs
Temp Pulse Resp BP Pulse Ox
97.3 F 77 16 105/50 99
06/22/24 11:31 06/22/24 11:39 06/22/24 11:39 06/22/24 11:31 06/22/24 11:39
Physical Exam
Constitutional: Acutely Ill
Cardiovascular: Regular Rate and S1/S2
Pulmonary: Clear
Gastrointestinal: Soft and Distended
Genito-Urinary: Leger
Extremities: Edema (decreased)
Skin: Jaundice
Objective Data
Lab Data
Lab Results
06/22/24 05:18
06/22/24 04:20
PT 42.5 Sec (11.4-14.6) H 06/22/24 04:20
INR 4.44 06/22/24 04:20
APTT 41.6 Sec (23.4-35.0) H 06/19/24 22:00
Estimated Creat Clear 25 ml/min 06/22/24 04:20
Lactic Acid 3.0 mmol/L (0.7-2.0) H 06/21/24 09:48
Total Bilirubin 4.6 mg/dl (0.2-1.3) H 06/22/24 04:20
AST 228 U/L (14-36) H 06/22/24 04:20
ALT 78 U/L (0-35) H 06/22/24 04:20
Alkaline Phosphatase 26 U/L (38-126) L 06/22/24 04:20
Most recent labs reviewed.
Micro Results:
06/19/24 18:26 Blood Culture - Preliminary
Blood/Venous No Growth in 48 hours- Final report to follow
06/20/24 12:38 Blood Culture - Preliminary
Blood/Venous No Growth in 24 hours- Final report to follow
06/20/24 11:16 Body Fluid Culture - Preliminary
Peritoneal Fluid No Growth After 18-24 Hours
Gram Stain - Preliminary
06/19/24 CT a/p: Cirrhotic morphology with evidence of portal hypertension and moderate volume ascites. Cholelithiasis. There is gallbladder wall thickening which is likely secondary to chronic liver disease. Colonic diverticulosis. There is
questionable wall thickening along the sigmoid colon and proximal ascending colon which may represent colitis. Complex ventral hernia containing fat and ascites.
06/19/24 CXR: No active cardiopulmonary disease. The tip of the PICC line is at the cavoatrial junction
--- NOTE | 2024-06-22 13:30 | PTCARENOTE ---
Levophed, vasopressin, propofol and fentanyl gtts infusing. VSS. Pt to IR after first unit FFP infused and second unit infusing. RIJ HD cath placed. Paracentesis performed and 10cc removed, all without issue.
[2024-06-22] MEDS: FLEXBUMIN 50 IV (13:46)
--- NOTE | 2024-06-22 14:00 | CHAP ---
Fr. Emery Diaz of [facility] in [place] gave Nieves the Sacrament of the Sick and an apostolic pardon. Time uncertain.
--- NOTE | 2024-06-22 14:01 | PN.CDI ---
CDI
- -
CDI:
Physician Documentation Request
Admit Date: 06/19/24 13:42
Dear Doctor Татьяна,
Please review the following and provide your response in the progress notes.
Clinical Indicators:
- 06/21 RN note 'Bipap increased to 14/5 4L. ABG sent'
- pH 7.23, pCO2 45, pO2 109, HCO3 18.8
- 06/22 Interactive Media Director 'Respiratory failure requiring intubation'
- 06/21 patient on BiPAP
Please clarify the type and acuity of respiratory failure:
Type Acuity
Respiratory failure with hypoxia Acute
Respiratory failure with hypercapnia Chronic
Respiratory failure with hypoxia and hypercapnia Acute on Chronic
Other, please specify
Use of terms such as suspected, likely, concern for, or probable (associated with a specific diagnosis that is being evaluated, monitored, or treated as if it exists) are acceptable and can be coded in the inpatient setting, when documented at the
time of discharge.
Thank you,
Mayda Perez RN
CDI Specialist
Please use your independent medical judgment in providing your response.
[2024-06-22 14:23] LABS: INR 3.22; PT 32.9 Sec (11.4-14.6)
[2024-06-22 14:37] LABS: Triglycerides 77 mg/dl (10-149)
[2024-06-22 15:25] LABS: Body Fluid Mononuclear 2.6 %; Body Fluid Polymorphonuclear 97.4 %; Body Fluid WBC 3934 /CUMM
[2024-06-22 15:30] LABS: Body Fluid Second Tech EF
--- NOTE | 2024-06-22 15:30 | W.PN.HOSP.TC ---
Today's Communication/Plan
-
see PN
Assessment / Plan
Assessment / Plan
69yo F with PMHx of liver cirrhosis, COPD presented with worsening abdominal pain, managed for SBO, developed worsening LILIBETH and coagulopathy with acute hepatic encephalopathy, so had to be intubated on 06/22/24 for protection of airways.
A/P:
#septic shock 2/2 SBP in patient with liver cirrhosis
#Acute hepatic encephalopathy
Pressors and vent support as per edge stainer machine
Lactulose enema
S/P paracentesis on 06/20/24 with neg fluid cultures, but meeting criteria for SBP by WBC count [id number]
Repeated paracentesis on 06/22/24
FOllow Bcx
ID follows: merrem/dapto
discontinued micafungin
#Acute hepatic failure on chronic liver cirrosis
#Esophageal varices
GI follows
daily MELD labs
Steroids for sepsis
GI follows - in close communication with transplant hepatology
#Hyponatremia with HAGMA
#LILIBETH, most likely 2/2 shock, cannot r/o HRS
Albumin
Nephrology for dialysis
follow BMP
s/p 3% sodium IV
#Anemia
no over bleeding seen
s/p 1unit PRBC on 06/22/24
follow H&H
PPI
#Thrombocytopenia
most likely reactive
#Coagulopathy
s/p FFP on 07/02/24 for HD catheter placement
follow daily INR
DVT ppx SCD (2/2 coagulopathy)
LImited DNR - no CPR
I have spent at least 59min reviewing chart, test results, communication with consultants and family and direct patient care
Anticipated Discharge: > 48 hours
Subjective/Interval History
-
Date of Service: June 22, 2024
Objective Data
-
Labs:
Laboratory Results
06/22/24 06/22/24 06/22/24
04:20 05:18 13:56
WBC 8.7 8.4
Hgb 6.7 L* D 6.7 L*
Hct 18.7 L* 18.6 L*
Plt Count 83 L D 89 L
PT 42.5 H 32.9 H
INR 4.44 3.22
HCO3 16.6 L
Sodium 126 L
Potassium 4.0
Chloride 92 L
Carbon Dioxide 14 L*
BUN 31 H
Creatinine 2.3 H
Glucose 121 H
Calcium 9.4 D
Total Bilirubin 4.6 H
AST 228 H
ALT 78 H
Alkaline Phosphatase 26 L
Vital Signs:
Vital Signs
Temp Pulse Resp BP Pulse Ox
96.5 F L 69 16 122/60 100
06/22/24 13:35 06/22/24 15:28 06/22/24 15:28 06/22/24 13:35 06/22/24 15:28
I&O
06/21/24 06/22/24 06/23/24
06:59 06:59 06:59
Intake Total 3128.2 / 3204.0 2012.3 / 2044.4 927.2 / 927.2
Output Total 190 / 190 375 / 375 165 / 165
Balance 2938.2 / 3014.0 1638.3 / 1670.4 762.2 / 762.2
Review of Systems
-
Unable to obtain full review of systems at this time due to: Patient Intubation
Physical Exam
-
General: Intubated
Respiratory: Crackles
Cardiac: Regular Rhythm
GI: Soft
Musculoskeletal: No Clubbing, No Cyanosis, Edema, Right Lower Extrem and Edema, Left Lower Extrem
Skin: Warm
Neuro: Sedated
[2024-06-22] MEDS: RFP-401 HD Soln (K+ 4 mEq/L) 15000 ML CRRT-IRR (15:35)
[2024-06-22 15:42] LABS: Body Fluid Albumin 1.5 g/dl; Body Fluid Amylase 457 U/L; Body Fluid LDH 881 U/L; Body Fluid Protein 3.3 g/dl
[2024-06-22] MEDS: VANCOCIN 200 IV (15:47)
--- NOTE | 2024-06-22 15:54 | PTCARENOTE ---
CRRT started as ordered without issue. Attempting to remove -50cc/hr. No increase of vasopressors needed. Assessment unchanged.
--- NOTE | 2024-06-22 16:12 | W.PN.UPDATE ---
Update Note
Progress Note Update
CRRT note
qb 200cc via right temp IJ catheter
Dialysate rate 1.5 L/hr
4K 3 calcium 35 bicarb bath
UF set for 50 cc/hr negative
Systolic blood pressure 128 on Levophed and vasopressin
[2024-06-22] MEDS: LEVOPHED 258 MG IV (17:40)
[2024-06-22 21:16] LABS: Ionized Calcium 1.14 mMOL/L (1.15-1.33)
[2024-06-22 21:26] LABS: Hematocrit 20.8 % (37.0-47.0); Hemoglobin 7.8 g/dL (12.0-16.0); Mean Corp Hgb Conc. 37.5 g/dL (33.0-37.0); Mean Corpuscular Volume 85.2 fL (81.0-99.0); Mean Platelet Volume 9.7 fL (7.4-10.4); Platelet Count 78 10^3/uL (130-400); Red Blood Cell Count 2.44 10^6/uL (4.20-5.40); Red Cell Dist. Width 14.7 % (11.5-14.5); White Blood Cell Count 9.7 10^3/uL (4.8-10.8)
--- NOTE | 2024-06-22 21:37 | PTCARENOTE ---
Addendum entered by Natalie Muller RN 06/22/24 21:40:
pt fms flushed, lawler draining yellow urine. abdomen tender, noted hernia.
Original Note:
Pt received from previous rn- remains ett to vent- see settings as charted. remains on propofol and fentanyl, cpot 0 to 2. does not following commands. right pupil remains larger than left. right size 6 left 5 both reactive. levophed on 8mcg for
maintain map>65. right radial sidney zeroed and functioning. full pm care, chg and oral care provided. turned and repositioned. suctioned for scant thick secretions. pt with left arm double lumen picc- flushes with good blood return. right ij hd
cath- currently running CRRT- see flowsheet for further details. labs sent as per order. Plan of care discussed with Rashad BECKER. all safety precautions in place, scds on. pt nsr on monitor.
[2024-06-22 21:41] LABS: Blood Urea Nitrogen 29 mg/dl (7-17); Carbon Dioxide 18 mmol/L (22-30); Chloride 94 mmol/L (98-107); Estimated Creatinine Clearance 39 ml/min; Glucose 112 mg/dl (70-99); Magnesium 1.8 mg/dl (1.6-2.3); Phosphorus 2.7 mg/dl (2.5-4.5); Potassium 3.6 mmol/L (3.5-5.1); Sodium 128 mmol/L (135-145); eGFR 37.72
[2024-06-22] MEDS: MAGNESIUM SULFATE 100 IV (21:50)
[2024-06-22] MEDS: CALCIUM GLUCONATE 130 MG IV (22:07)
--- NOTE | 2024-06-23 00:10 | PTCARENOTE ---
assessment unchanged. crrt continues. electrolyte replacement as per protocol. turned and repositioned. remains on elda hugger.
[2024-06-23] MEDS: RFP-401 HD Soln (K+ 4 mEq/L) 15000 ML CRRT-IRR ×3 (00:47→18:48)
[2024-06-23] MEDS: MERREM 500 MG IV ×4 (00:58→19:03)
[2024-06-23] MEDS: STERILE WATER FOR INJECTION 10 ML IV ×4 (00:58→19:03)
[2024-06-23 03:43] LABS: Ionized Calcium 1.26 mMOL/L (1.15-1.33)
--- NOTE | 2024-06-23 04:05 | PTCARENOTE ---
assessment unchanged. all systems reviewed. remains on crrt. gtts unchanged.
--- NOTE | 2024-06-23 04:06 | W.PN.INTV ---
Today's Communication / Plan
Recommendations
Wean FiO2
Consider spontaneous breathing trial once stabilized
Chronic renal replacement therapy
Antibiotics
Pressors as needed
Assessment
-
69-year-old woman with history of alcoholic cirrhosis came to the hospital complaining of increased abdominal girth, abdominal pain, poor p.o. intake, found to be hypotensive. Transferred to the intensive care unit due to lack of response to IV
fluids. Started on vasopressors 06/19/2024. Suspicious for spontaneous bacterial peritonitis
Septic shock
Worsening abdominal distention/abdominal pain
Possible spontaneous bacterial peritonitis vs ? Less likely colitis
CT abdomen pelvis 06/19/2024:Cirrhotic morphology with evidence of portal hypertension and moderate volume ascites.
Cholelithiasis. There is gallbladder wall thickening which is likely secondary to chronic liver disease.
Colonic diverticulosis. There is questionable wall thickening along the sigmoid colon and proximal ascending colon which may represent colitis.
Complex ventral hernia containing fat and ascites.
Respiratory failure requiring intubation
Intubated 06/22/2024
Extubated
Hyponatremia acute kidney injury
Anion gap metabolic acidosis-increased lactic acid
Leukocytosis
Anemia
Elevated LFTs
Elevated ammonia
Limited DNR-no chest compressions or shocking
Conditions present prior admission:
Alcoholic cirrhosis since 2017
Portal hypertensive gastropathy
Hypervolemic hyponatremia
Ventral hernia history of asthma only follows up with primary care
Former alcohol use quit in 2017
Plan:
Remains critically ill minimally responsive, on the ventilator, on pressors with renal failure and worsening liver failure
Intubated mechanically ventilated
Ventilator settings reviewed-airway pressures adequate
Continue to wean FiO2
Attempt spontaneous breathing trial-doubt extubated will today
ABG 06/22/2024--30/169/7.35
Follow airway pressures and avoid barotrauma and volutrauma
Intensified nebulizers-significant wheezing on exam though may have 'cardiac' component with renal failure and fluid overload
Chest x-ray 06/22/2024-NAD, ET tube 4 cm above adan
Follow occasional chest x-ray
VAP prevention protocol
Cultures reviewed
Broad-spectrum empiric antibiotics to cover spontaneous bacterial peritonitis
Norepinephrine and vasopressin and Arash-Synephrine as needed-consider Giapreza
Trend lactate
Initiate hydrocortisone 50 mg IV every 6 hours-random cortisol was 60, however, surviving sepsis guideline revision recommendations suggest consideration
Bicarb is needed
Monitor renal function
Nephrology following-correspondence reviewed-reviewed with Dr. Pickett
Replace electrolytes
Continuous renal replacement therapy initiated 06/22/2024
Status post 2 units FFP prior to dialysis catheter placement for elevated INR
Echocardiogram 06/21/2024-EF 55-60%, aortic sclerosis, PA systolic 38
Gastroenterology following
Status post paracentesis 06/20/2024-WBC 6983, total protein less than 2, albumin less than 1, LDH 477, amylase 191
Repeat paracentesis 06/22/2024-WBC 3934, total protein 3.3, albumin 1.5, LDH 881, amylase 457, cultures pending
Follow hemoglobin-currently 8.1
Transfuse as needed
Monitor thrombocytopenia-currently 82
Antibiotics-meropenem/daptomycin and micafungin
Albumin
Contacted tertiary center-no need for transfer at this time
Nutrition per gastroenterology
Lactulose NJ
PPI
Follow ammonia
Monitor neurologic status
CT head without obvious acute infarct
Consider neurology evaluation though TME likely due to sepsis, hypoperfusion, and hepatic encephalopathy
DVT prophylaxis-subcu heparin every 12-INR elevated-hold heparin
GI prophylaxis-on pantoprazole
Nutrition-avoid nasogastric tube with history of varices for now
Dr. Vaz reviewed with multiple family members including and 2 daughters at the bedside 06/22/2024-overall poor prognosis-they understand-POA now wants limited DNR-no chest compressions or shocking
Dr. Vaz reviewed with daughter and at the bedside-06/21/2024 updated on current clinical situation, critical nature of her multi organ failure, morbidity and high mortality rate unfortunately and discussed CODE STATUS as well
Dr. Vaz reviewed with daughters and at the bedside 06/22/2024-current clinical situation, mild improvement, potential Juanjose ICU course, ongoing need for renal replacement therapy and potential trial for spontaneous breathing trial
Critical care statement: A total of 50 minutes of critical care time was provided for this patient today. This includes management of unstable vital signs, evaluation of the patient at bedside, reviewing the patient's pertinent medical records
including radiographs, management of respiratory failure, noninvasive ventilation, following ABGs, pressor management, sepsis management, microbiology, laboratory evaluations, and discussion with primary team, consultants, pharmacy, nutrition,
physical therapy, case management, charge nurse, critical care nursing, and respiratory therapy.
Subjective Dataa
Subjective Data
Date of Service:
Date of Service: June 23, 2024
Chief Complaint: Loom Starter Follow Up (Septic shock) and Pulmonary Follow Up
Subjective:
On a ventilator, oxygenating better, tolerating renal replacement therapy, sedated on the ventilator and review of systems unobtainable
Review of Systems
General: Unobtainable - Sedation
Objective Data
Data Reviewed
Vital Signs / I&O / Oxygen:
Vital Signs
Temp Pulse Resp BP Pulse Ox
97.7 F 71 16 122/60 99
06/23/24 01:00 06/23/24 02:30 06/23/24 02:30 06/22/24 13:35 06/23/24 04:00
Intake and Output
06/21/24 06/22/24 06/23/24
06:59 06:59 06:59
Intake Total 3128.2 / 3204.0 / 2044.4 1859.0 / 1859.0
Output Total 190 / 190 375 / 375 1850 / 1850
Balance 2938.2 / 3014.0 1638.3 / 1670.4 9.0 / 9.0
SaO2 [A/C] 99
SaO2 99
Nasal Cannula flow liters per 2
minute
Physical Exam
General: Respiratory Distress (Mild at rest)
HEENT: Normocephalic
Cardiovascular: Regular Rhythm
Respiratory: Wheeze (Diffuse expiratory), Crackles (Basilar), Rhonchi (n), Accessory Resp Muscle Use (Mild), Stridor (n), ET Tube and Other (Decreased breath sounds both bases)
GI: Distended (Mildly tender, ascites.) and Other ( Ventral hernia not tender not erythematous)
Neurology: Unresponsive, Other and Other
Skin: Warm, Good Color, Cyanosis (n) and Rash
Labs/Micro/Reports
Laboratory Results
06/22/24 06/22/24
04:20 13:56
PT 42.5 H 32.9 H
INR 4.44 3.22
pH 7.35
pCO2 30 L
pO2 169 H
HCO3 16.6 L
O2 Delivery Level 40%
Microbiology
06/19/24 18:26 Blood/Venous Blood Culture - Preliminary
No Growth in 72 hours- Final report to follow
06/20/24 12:38 Blood/Venous Blood Culture - Preliminary
No Growth in 48 hours- Final report to follow
06/20/24 11:16 Peritoneal Fluid Body Fluid Culture - Preliminary
06/20/24 11:16 Peritoneal Fluid Gram Stain - Preliminary
[2024-06-23 04:10] LABS: ALT (SGPT) 62 U/L (0-35); AST (SGOT) 135 U/L (14-36); Albumin 3.6 g/dl (3.5-5.0); Alkaline Phosphatase 44 U/L (38-126); Blood Urea Nitrogen 26 mg/dl (7-17); Calcium 9.6 mg/dl (8.4-10.2); Carbon Dioxide 20 mmol/L (22-30); Chloride 96 mmol/L (98-107); Estimated Creatinine Clearance 44 ml/min; Glucose 117 mg/dl (70-99); Magnesium 2.6 mg/dl (1.6-2.3); Phosphorus 2.7 mg/dl (2.5-4.5); Potassium 3.8 mmol/L (3.5-5.1); Sodium 130 mmol/L (135-145); Total Bilirubin 6.7 mg/dl (0.2-1.3); Total Protein 5.5 g/dl (6.3-8.2); eGFR 44.79
[2024-06-23 04:35] LABS: Vancomycin Random 15.2 ug/ml
--- NOTE | 2024-06-23 04:38 | DOWNTIME ---
There was a [employer] Client [employer]iaison Downtime on 06/23/2024 from 0100 to 06/23/2024 at 0355. Downtime documentation of patient's care, including medication administrations, has been reconciled in the electronic record per guidelines. Refer to the
patient's paper chart under the miscellaneous tab to see printed paper medication records and downtime forms.
[2024-06-23 05:07] VITALS: BMI 38.0
[2024-06-23 05:11] LABS: % Basophils 0.4 % (0-2); % Eosinophils 0.4 % (0-6); % Immature Granulocytes 1.9 % (0-0.5); % Lymphocytes 4.9 % (20.5-51.1); % Monocytes 7.9 % (1.7-9.3); % Neutrophils 84.5 % (42.2-75.2); Absolute Immature Granulocytes 0.2 10^3/uL (0-0.05); Absolute Lymphocytes 0.5 10^3/uL (1.2-3.4); Absolute Monocytes 0.8 10^3/uL (0.1-0.6); Absolute Neutrophils 8.8 10^3/uL (1.4-6.5); Hematocrit 21.9 % (37.0-47.0); Hemoglobin 8.1 g/dL (12.0-16.0); Mean Corpuscular Hgb 32.1 pg (27.0-31.0); Mean Corpuscular Volume 86.9 fL (81.0-99.0); Nucleated Red Blood Cells % 0 %; Platelet Count 82 10^3/uL (130-400); Red Blood Cell Count 2.52 10^6/uL (4.20-5.40); Red Cell Dist. Width 15.3 % (11.5-14.5); White Blood Cell Count 10.4 10^3/uL (4.8-10.8)
[2024-06-23 05:25] LABS: INR 3.04; PT 31.4 Sec (11.4-14.6)
[2024-06-23] MEDS: SOLU-CORTEF 50 MG IV ×3 (06:01→17:47)
[2024-06-23] MEDS: DIPRIVAN 100 IV ×2 (06:01→15:39)
--- NOTE | 2024-06-23 06:13 | PTCARENOTE ---
plan of care discussed with Dr. Jacobo- aware of rass, propofol decreased per protocol, grimaces to tactile at times. no new orders.
--- NOTE | 2024-06-23 07:30 | PTCARENOTE ---
Assumed care of patient. Pt rec'd sedated on ventilator. Pupils 3/reactive and equal. Does not follow commands or make any purposeful movements. Restraints removed. Passive ROM performed. S1 S2 reg w/ NSR on monitor. +PP. +4 pitting
generalized edema. Legs elevated on pillows. Knee hi SCD's on. #8 ETT 21cm right lip...current vent settings: 16/450/+5/40%...sats 100%. Lungs diminished...scattered I/E wheezing...scattered posterior fine crackles. Suctioned orally for scant
blood tinged sputum. Abdomen obese and distended...hypo BS. FMS draining liquid brown stool. Temperature sensing lawler draining dark yellow urine. Lawler care done. Skin jaundice in color...scattered ecchymosis on bilateral arms. LFA skin tear
noted. RIJ HD cath...CRRT per orders. Right radial sidney...flushed and zeroed. RH 20P INT...flushed. RAC 20P INT...flushed. Left DL PICC w/ diprivan, fentanyl, and levophed gtts infusing...see interventions. VS documented. Safe environment
confirmed. Will continue to monitor closely.
[2024-06-23] MEDS: DUPHALAC/CHRONULAC PO (07:35)
[2024-06-23] MEDS: PROTONIX IV 40 MG IV (07:35)
[2024-06-23] MEDS: NSS (PRESERVATIVE FREE) 10 ML IV (07:36)
--- NOTE | 2024-06-23 07:59 | PHA.VAN.FU ---
Vancomycin Assessment / Plan
- Assessment
Hemodialysis Schedule: Other ([facility] @ 1.5 L/H)
Concomitant Antimicrobials: meropenem
- Assessment - Therapeutic Drug Monitoring
Random Level: 15.2 - drawn ~11.5H after previous dose of 1000mg
- Dosing Plan
Dosing by Level: Re-dose today (Vanc 1000mg)
- Monitoring Plan
Random Level: 06/24 0600
- Follow Up
Pharmacy will continue to follow.
Vancomycin Follow UP
- -
Patient Age: 69
Patient Sex: Female
Vancomycin Day #: 4
Indication: Gi / Intra-Abdominal
Requesting Provider: Hemanth
Pertinent Antimicrobial Allergies:
no pertinent antibiotic allergies
Height / Weight:
Height 5 ft 2 in
Actual Weight 94.2 kg
IBW in k.1
Adjusted BW in k.3
Pertinent Past Medical History: BMI ~37
- Vital Signs / Lab Results
Temp Pulse Resp BP Pulse Ox
95.9 F L 61 16 122/60 100
06/23/24 07:25 06/23/24 07:15 06/23/24 07:15 06/22/24 13:35 06/23/24 07:25
Lab Results - Hematology
06/21/24 06/22/24 06/22/24
03:05 04:20 05:18
WBC 20.5 H 8.7 8.4
Band Neutrophils 27 H 23 H
06/22/24 06/23/24
21:10 03:15
WBC 9.7 10.4
Band Neutrophils
Lab Results - Chemistry
06/20/24 06/20/24 06/21/24
12:00 12:35 03:05
BUN Cancelled 23 H 27 H
Creatinine Cancelled 1.6 H 1.9 H
Estimated Creat Clear Cancelled 35 30
Albumin 2.8 L 3.2 L
06/21/24 06/21/24 06/22/24
16:21 22:30 04:20
BUN 29 H 30 H 31 H
Creatinine 2.3 H 2.3 H 2.3 H
Estimated Creat Clear 25 25 25
Albumin 4.2
06/22/24 06/23/24
21:10 03:15
BUN 29 H 26 H
Creatinine 1.5 H 1.3 H
Estimated Creat Clear 39 44
Albumin 3.6
06/20/24 06/20/24 06/20/24
12:37 17:40 22:34
Lactic Acid 5.2 H* 4.0 H* 3.4 H
06/21/24 06/21/24 06/21/24
03:05 05:48 09:48
Lactic Acid 3.3 H 3.2 H 3.0 H
Microbiology Results
06/22/24 13:05 Gram Stain - Preliminary
Peritoneal Fluid
06/19/24 18:26 Blood Culture - Preliminary
Blood/Venous No Growth in 72 hours- Final report to follow
06/20/24 12:38 Blood Culture - Preliminary
Blood/Venous No Growth in 48 hours- Final report to follow
06/20/24 11:16 Body Fluid Culture - Preliminary
Peritoneal Fluid Gram Stain - Preliminary
Therapeutic Drug Monitoring
Random Vancomycin 15.2 ug/ml 06/23/24 03:15
[2024-06-23] MEDS: DUONEB 3 ML INH ×4 (08:29→20:28)
--- NOTE | 2024-06-23 08:30 | PTCARENOTE ---
New sidney flush w/ tubing and vamp added.
--- NOTE | 2024-06-23 08:49 | W.PN.GI.CBS2 ---
Today's Communication / Plan
-
Repeat paracentesis with improvement in cell count
MELD 3.0 today is 31
C/w abx, CRRT and wean pressor as tolerates
Assessment / Plan
-
69 year-old female with alcoholic cirrhosis presenting with abdominal pain most suggestive of SBP. Her MELD 1 month ago was 15, 06/20/2024 was 32 and on 06/21/2024 is 39. She continues on 3 pressor support (Levophed, Arash-Synephrine and
vasopressin), continues on meropenem and micafungin. Continues to be followed by pulmonary/critical care, infectious disease, internal medicine, renal. We have reached out to her hepatology team at [facility]. She
continues on albumin replacement. We will give an additional 37.5 g now continued by 1 g/kg/day. Unfortunately because she continues to have worsening renal function as well as INR. Awaiting blood cultures and paracentesis fluid cultures. Will
give lactulose enema as patient unable to take in p.o. Discussed with daughter Nona at bedside. She states that the patient has 4 children and the person who would be making medical decisions for her mother is Margaux Sequeira ([phone]).
Impression:
SBP w/ sepsis - she is critically ill
Weaned down to 1pressor
Septic shock
Pancytopenia
Hyponatremia
LILIBETH
Alcoholic cirrhosis
Portal hypertensive gastropathy
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
Recommendations
MELD 3.0 today 31 which portends a 68.3% estimated 90 day survival
Continue antibiotics as per recommended by infectious disease.
Repeat diagnostic paracentesis 06/22 with improvement
Continue pressor support currently on levophed wean as tolerates
Worsening renal function, renal following with CRRT started 06/22
Blood cultures thus far negative. Awaiting gram stains
Trend labs
Avoid hepatoxins.
Will follow with you.
Subjective
Subjective
Date of Service: June 23, 2024
She was started on CRRT yesterday. Making urine and scant stool output. Off vaso and arash. On Levophed only currently
Objective
Data Reviewed
Laboratory Data:
Laboratory Results
06/23/24 03:15
Laboratory Results
PT 31.4 Sec (11.4-14.6) H 06/23/24 03:15
INR 3.04 06/23/24 03:15
APTT 41.6 Sec (23.4-35.0) H 06/19/24 22:00
Phosphorus 2.7 mg/dl (2.5-4.5) 06/23/24 03:15
Magnesium 2.6 mg/dl (1.6-2.3) H 06/23/24 03:15
Total Bilirubin 6.7 mg/dl (0.2-1.3) H 06/23/24 03:15
AST 135 U/L (14-36) H 06/23/24 03:15
ALT 62 U/L (0-35) H 06/23/24 03:15
Alkaline Phosphatase 44 U/L (38-126) 06/23/24 03:15
Lipase 27 U/L (23-300) 06/19/24 09:42
Vital Signs and I&O:
Vital Signs
Temp Pulse Resp BP Pulse Ox
95.9 F L 58 16 122/60 100
06/23/24 07:25 06/23/24 08:33 06/23/24 08:33 06/22/24 13:35 06/23/24 08:33
I&O
06/22/24 06/23/24 06/24/24
06:59 06:59 06:59
Intake Total 2012.2044.4 1912.4 / 1934.6 42.5 / 42.5
Output Total 375 / 375 2019 148 / 148
Balance 1638.3 / 1670.4 -107.6 / -170.4 -105.5 / -105.5
Physical Exam
Physical Exam
GEN: No acute distress, sedated
HEENT: anicteric, extraocular movements intact, clear oropharynx without exudates, bloody tongue and ET tube in place
GI: soft, mildly-distended, not tender to palpation, normal active bowel sounds, no hepatosplenomegaly
EXT: warm, well perfused, 1+ edema bilaterally
NEURO: sedated non-focal
[2024-06-23 09:00] LABS: Ionized Calcium 1.22 mMOL/L (1.15-1.33)
[2024-06-23 09:36] LABS: ALT (SGPT) 61 U/L (0-35); AST (SGOT) 127 U/L (14-36); Albumin 3.4 g/dl (3.5-5.0); Alkaline Phosphatase 42 U/L (38-126); Blood Urea Nitrogen 23 mg/dl (7-17); Calcium 9.1 mg/dl (8.4-10.2); Carbon Dioxide 21 mmol/L (22-30); Chloride 98 mmol/L (98-107); Estimated Creatinine Clearance 52 ml/min; Glucose 116 mg/dl (70-99); Magnesium 2.4 mg/dl (1.6-2.3); Phosphorus 2.4 mg/dl (2.5-4.5); Potassium 3.8 mmol/L (3.5-5.1); Sodium 132 mmol/L (135-145); Total Bilirubin 6.7 mg/dl (0.2-1.3); Total Protein 5.6 g/dl (6.3-8.2); eGFR 54.73
[2024-06-23] MEDS: VANCOCIN 200 IV (09:42)
--- NOTE | 2024-06-23 09:42 | W.PN.NEPH.PH ---
Today's Communication / Plan
-
Increase volume removal
Assessment/Plan
-
Assessment
Alcoholic cirrhosis
Hypotension
Abdominal pain
Sepsis
Lactic acidosis
Metabolic acidosis
LILIBETH
Hyponatremia
Plan
Follow BMP
CRRT continues
Increased volume removal to 100 mL/h
Keep mean arterial pressure greater than 65
Wean pressors as allowed
Antibiotics per infectious disease will continue
Critical care time spent 31 minutes
-
-
Date of Service: June 23, 2024
CC / HPI / ROS
-
Chief Complaint:
Acute kidney injury
History of Present Illness:
Remains hemodynamically unstable on multiple pressor support, though requirements improving
Critically ill in ICU on CRRT
Creatinine down to 1.1
Hyponatremia improving to 132
metabolic acidosis stable at 21
On ventilator, sedated
Review of Systems:
Remains oliguric
Sedated
Labs
-
Labs:
WBC 10.4 10^3/uL (4.8-10.8) 06/23/24 03:15
RBC 2.52 10^6/uL (4.20-5.40) L 06/23/24 03:15
Hgb 8.1 g/dL (12.0-16.0) L 06/23/24 03:15
Hct 21.9 % (37.0-47.0) L 06/23/24 03:15
Plt Count 82 10^3/uL (130-400) L 06/23/24 03:15
Sodium 132 mmol/L (135-145) L 06/23/24 08:44
Potassium 3.8 mmol/L (3.5-5.1) 06/23/24 08:44
Chloride 98 mmol/L (98-107) 06/23/24 08:44
Carbon Dioxide 21 mmol/L (22-30) L 06/23/24 08:44
BUN 23 mg/dl (7-17) H 06/23/24 08:44
Creatinine 1.1 mg/dL (0.6-1.0) H 06/23/24 08:44
eGFR 54.73 06/23/24 08:44
Glucose 116 mg/dl (70-99) H 06/23/24 08:44
Calcium 9.1 mg/dl (8.4-10.2) 06/23/24 08:44
Phosphorus 2.4 mg/dl (2.5-4.5) L 06/23/24 08:44
Albumin 3.4 g/dl (3.5-5.0) L 06/23/24 08:44
Physical Exam
-
Vital Signs:
Vital Signs
Temp Pulse Resp BP Pulse Ox
95.9 F L 58 16 122/60 100
06/23/24 07:25 06/23/24 08:33 06/23/24 08:33 06/22/24 13:35 06/23/24 08:33
Cardiovascular:: Regular rate and rhythm
Respiratory:: Bilateral: Coarse
Lung Excursion:: Normal
Abdomen:: Nontender and Soft
Bowel Sounds:: Decreased
Extremity Edema:: +3: Bilateral:
--- NOTE | 2024-06-23 09:45 | W.PN.UPDATE ---
Update Note
Progress Note Update
CRRT note
Qb 250cc via right temp IJ catheter
Dialysate rate 1.5 L/hr
4K 3 calcium 35 bicarb bath
UF set for 100 cc/hr negative
Vital signs stable on 1 pressor
--- NOTE | 2024-06-23 11:04 | W.PN.HOSP.TC ---
Today's Communication/Plan
-
Cont CCRT pending volume improvement to allow extubation
cont Abx pending final Cx from peritoneal fluid
Assessment / Plan
Assessment / Plan
69yo F with PMHx of liver cirrhosis, COPD presented with worsening abdominal pain, managed for SBO, developed worsening LILIBETH and coagulopathy with acute hepatic encephalopathy, so had to be intubated on 06/22/24 for protection of airways. Started on
CRRT on 06/23/24 with improvement in pressor requirements
A/P:
#septic shock 2/2 SBP in patient with liver cirrhosis
#Acute hepatic encephalopathy
Pressors, sedation and vent support as per hardness tester
Lactulose enema
S/P paracentesis on 06/20/24 with GNB in fluid cultures, meeting criteria for SBP by WBC count 6983, on repeated paracentesis 3934 on 06/23/24
Repeated paracentesis on 06/22/24
Follow Bcx
ID follows: merrem/vanco
discontinued micafungin
#Acute hepatic failure on chronic liver cirrhosis
#Esophageal varices
GI follows
daily MELD labs
Steroids for sepsis
GI follows - in close communication with transplant hepatology
#Hyponatremia with HAGMA
#LILIBETH, most likely 2/2 shock, cannot r/o HRS
Albumin
Nephrology for dialysis
follow BMP
s/p 3% sodium IV
#Anemia
no over bleeding seen
s/p 1unit PRBC on 06/22/24
follow H&H
PPI
#Thrombocytopenia
#Transaminitis
2/2 liver disease
#Coagulopathy
s/p FFP on 07/02/24 for HD catheter placement
follow daily INR
DVT ppx SCD (2/2 coagulopathy)
LImited DNR - no CPR
I have spent at least 59min reviewing chart, test results, communication with consultants and family and direct patient care
Anticipated Discharge: > 48 hours
Subjective/Interval History
-
Date of Service: June 23, 2024
Objective Data
-
Labs:
Laboratory Results
06/23/24 06/23/24
03:15 08:44
WBC 10.4
Hgb 8.1 L
Hct 21.9 L
Plt Count 82 L
PT 31.4 H
INR 3.04
Sodium 130 L 132 L
Potassium 3.8 3.8
Chloride 96 L 98
Carbon Dioxide 20 L 21 L
BUN 26 H 23 H
Creatinine 1.3 H 1.1 H
Glucose 117 H 116 H
Calcium 9.6 9.1
Total Bilirubin 6.7 H 6.7 H
AST 135 H 127 H
ALT 62 H 61 H
Alkaline Phosphatase 44 42
Vital Signs:
Vital Signs
Temp Pulse Resp BP Pulse Ox
95.9 F L 59 16 122/60 100
06/23/24 07:25 06/23/24 09:45 06/23/24 09:45 06/22/24 13:35 06/23/24 09:45
I&O
06/22/24 06/23/24 06/24/24
06:59 06:59 06:59
Intake Total 2012. / 2044.4 1912.4 / 1934.6 129.3 / 129.3
Output Total 375 / 375 2019 / 2104 331 / 331
Balance 1638.3 / 1670.4 -107.6 / -170.4 -201.7 / -201.7
Review of Systems
-
Unable to obtain full review of systems at this time due to: Patient Intubation
Physical Exam
-
General: Intubated
Respiratory: Crackles
Cardiac: Regular Rhythm
GI: Soft
Musculoskeletal: No Clubbing, No Cyanosis, Edema, Right Lower Extrem and Edema, Left Lower Extrem
Neuro: Sedated
[2024-06-23 11:32] VITALS: BMI 38.0
[2024-06-23] MEDS: SODIUM PHOSPHATE 260 MEQ IV (11:43)
--- NOTE | 2024-06-23 11:55 | PTCARENOTE ---
Axillary temp of 93.6. Masha hugger applied on high and temp increased on CRRT machine...will monitor closely. No major changes in physical assessment since am. Remains intubated and sedated on ventilator. Family fully updated and all questions
answered.
--- NOTE | 2024-06-23 12:10 | W.PN.ID1 ---
Date of Service
Date of Service: June 23, 2024
Today's Communication
Continue meropenem.
DC Vancomycin.
Assessment / Plan
# Spontaneous bacterial peritonitis
# Decompensated ETOH cirrhosis
# Septic shock now on 1 pressor
# multisytem organ failure
# LILIBETH - on CRRT
# Hepatic Encephalopathy
- 06/20 s/p paracentesis 2.5 L ascites: 6,983 wbc, 79% polys
Ascites Cx GNR
-06/22 ascites: 3934 wbc, 97% polys
Ascites cx neg to date
- blood cx neg to date
-Continue meropenem, dosed for CRRT
-DC Vancomycin
- Follow vitals
Chief Complaint
-: Clinical Sepsis
Subjective / Review of Systems
Remains on vent under heating blanket.
Vital Signs / Physical Exam
Vital Signs
Vital Signs
Temp Pulse Resp BP Pulse Ox
93.6 F L 61 19 122/60 100
06/23/24 11:50 06/23/24 12:03 06/23/24 12:03 06/22/24 13:35 06/23/24 12:03
Physical Exam
Constitutional: Acutely Ill
Pulmonary: Clear
Gastrointestinal: Soft and Distended (mild to moderate)
Extremities: Edema
Skin: Jaundice
Objective Data
Lab Data
Lab Results
06/23/24 03:15
06/23/24 08:44
PT 31.4 Sec (11.4-14.6) H 06/23/24 03:15
INR 3.04 06/23/24 03:15
APTT 41.6 Sec (23.4-35.0) H 06/19/24 22:00
Estimated Creat Clear 52 ml/min 06/23/24 08:44
Lactic Acid 3.0 mmol/L (0.7-2.0) H 06/21/24 09:48
Total Bilirubin 6.7 mg/dl (0.2-1.3) H 06/23/24 08:44
AST 127 U/L (14-36) H 06/23/24 08:44
ALT 61 U/L (0-35) H 06/23/24 08:44
Alkaline Phosphatase 42 U/L (38-126) 06/23/24 08:44
Most recent labs reviewed.
Micro Results:
06/22/24 13:05 Body Fluid Culture - Preliminary
Peritoneal Fluid No Growth After 18-24 Hours
Gram Stain - Preliminary
06/20/24 11:16 Body Fluid Culture - Preliminary
Peritoneal Fluid Gram negative bacilli
Gram Stain - Preliminary
06/19/24 18:26 Blood Culture - Preliminary
Blood/Venous No Growth in 72 hours- Final report to follow
06/20/24 12:38 Blood Culture - Preliminary
Blood/Venous No Growth in 48 hours- Final report to follow
06/19/24 CT a/p: Cirrhotic morphology with evidence of portal hypertension and moderate volume ascites. Cholelithiasis. There is gallbladder wall thickening which is likely secondary to chronic liver disease. Colonic diverticulosis. There is
questionable wall thickening along the sigmoid colon and proximal ascending colon which may represent colitis. Complex ventral hernia containing fat and ascites.
06/19/24 CXR: No active cardiopulmonary disease. The tip of the PICC line is at the cavoatrial junction
--- NOTE | 2024-06-23 14:04 | CM ---
CM following re: discharge planning.
Discussed in Rounds, reviewed pt's chart, met with pt and pt's family at bedside. Pt's two daughters and pt's participating in Rounds meeting daily.
Per Rounds meeting, pt remains critically ill, minimally responsive, on the ventilator, on pressors with renal failure and worsening liver failure, continue supportive care.
D/C connelly: uncertain at this time and will depend on pt's progress.
CM will follow with discharge plan updates as hospitalization progresses
[2024-06-23 14:42] LABS: Ionized Calcium 1.17 mMOL/L (1.15-1.33)
[2024-06-23 15:12] LABS: Blood Urea Nitrogen 21 mg/dl (7-17); Calcium 8.8 mg/dl (8.4-10.2); Carbon Dioxide 22 mmol/L (22-30); Chloride 97 mmol/L (98-107); Estimated Creatinine Clearance 58 ml/min; Glucose 148 mg/dl (70-99); Magnesium 2.3 mg/dl (1.6-2.3); Phosphorus 3.6 mg/dl (2.5-4.5); Potassium 3.7 mmol/L (3.5-5.1); Sodium 131 mmol/L (135-145); eGFR > 60.00
[2024-06-23] MEDS: CALCIUM GLUCONATE 100 IV ×2 (15:14→22:06)
--- NOTE | 2024-06-23 16:00 | PTCARENOTE ---
Pt remains intubated and sedated. Fentanyl gtt @ 25mcg and diprivan gtt @ 10mcg. Attempted SBT earlier....TV's range from 160-180mls... aware. Q6H labs per ....electolytes repleted per orders. Multiple clots noted in CRRT filter
but no issues w/ flow. Levophed gtt currently infusing at 6mcg to maintain MAP > 65. Pt's temp slowly increasing...pt had been placed on elda hugger and temp on CRRT machine increased. Current temp 96.2 axillary...will continue to monitor...see
intervention.
--- NOTE | 2024-06-23 16:25 | PTCARENOTE ---
Approximately 3 minute period of hypotension...unknown etiology. SBP low of 70 w/ MAP of 48. Levophed gtt increased to 8mcg...diprivan/fentanyl gtts placed on hold. Will monitor closely.
--- NOTE | 2024-06-23 16:33 | PTCARENOTE ---
Addendum entered by Janel Hoyos RN 06/23/24 16:35:
Diprivan gtt restarted @ 10mcg also.
Original Note:
BP recovered after a few minutes....MAP 80-90...restarted fentanyl gtt @ 25mcg...will continue to monitor.
[2024-06-23] MEDS: LEVOPHED 258 MG IV (17:46)
--- NOTE | 2024-06-23 19:37 | PTCARENOTE ---
pt received from previous rn- ett to vent, see settings as charted. remains on propofol, fentanyl and levophed for map>65. pt cpot 0. grimaces with oral care and stimulation at times, does not follow commands. nsr on monitor. generalized +3 pitting
anasarca, jaundice in color. remains with fms and lawler- lawler with yellow urine. crrt running per order- see flowsheet. right ij site c/d/i. left double lumen picc c/d/i flushes with blood return. right radial sidney zeroed and functioning. remains
on elda hugger. turned and repositioned. daughters at bedside- educated about plan of care- verbalized understanding. all safety precautions in place.
[2024-06-23] MEDS: SUBLIMAZE 50 MCG IV (21:03)
[2024-06-23 21:37] LABS: Ionized Calcium 1.16 mMOL/L (1.15-1.33)
--- NOTE | 2024-06-23 21:55 | PTCARENOTE ---
at 1999 to 2099- blood returned and new cartridge started on crrt. labs sent. full bed bath and pm care provided.
[2024-06-23 21:57] LABS: Blood Urea Nitrogen 19 mg/dl (7-17); Calcium 8.7 mg/dl (8.4-10.2); Carbon Dioxide 21 mmol/L (22-30); Chloride 100 mmol/L (98-107); Estimated Creatinine Clearance 64 ml/min; Glucose 131 mg/dl (70-99); Magnesium 2.2 mg/dl (1.6-2.3); Phosphorus 2.9 mg/dl (2.5-4.5); Potassium 3.6 mmol/L (3.5-5.1); Sodium 132 mmol/L (135-145); eGFR > 60.00
--- NOTE | 2024-06-24 00:12 | PTCARENOTE ---
approx 2200 pt restless, opening eyes, not following commands- fentanyl bolus given as per order. cpot now 0. assessment unchanged all systems reviewed. crrt continues. calcium gluc given per protocol.
[2024-06-24] MEDS: SOLU-CORTEF 50 MG IV ×4 (01:03→18:04)
[2024-06-24] MEDS: STERILE WATER FOR INJECTION 10 ML IV ×4 (01:03→19:09)
[2024-06-24] MEDS: DIPRIVAN 100 IV (01:03)
[2024-06-24] MEDS: MERREM 500 MG IV ×4 (01:03→19:09)
[2024-06-24] MEDS: SUBLIMAZE 100 IV (01:04)
[2024-06-24 03:17] LABS: Ionized Calcium 1.23 mMOL/L (1.15-1.33)
[2024-06-24 03:28] LABS: INR 2.83; PT 30.2 Sec (11.4-14.6)
[2024-06-24] MEDS: RFP-401 HD Soln (K+ 4 mEq/L) 15000 ML CRRT-IRR ×3 (03:30→22:57)
[2024-06-24 03:31] LABS: % Basophils 0.6 % (0-2); % Eosinophils 0.1 % (0-6); % Immature Granulocytes 1.9 % (0-0.5); % Lymphocytes 5.1 % (20.5-51.1); % Monocytes 10.1 % (1.7-9.3); % Neutrophils 82.2 % (42.2-75.2); Absolute Basophils 0.1 10^3/uL (0-0.2); Absolute Immature Granulocytes 0.3 10^3/uL (0-0.05); Absolute Lymphocytes 0.7 10^3/uL (1.2-3.4); Absolute Monocytes 1.4 10^3/uL (0.1-0.6); Absolute Neutrophils 11.1 10^3/uL (1.4-6.5); Hematocrit 25.9 % (37.0-47.0); Hemoglobin 9.6 g/dL (12.0-16.0); Mean Corp Hgb Conc. 37.1 g/dL (33.0-37.0); Mean Corpuscular Hgb 31.1 pg (27.0-31.0); Mean Corpuscular Volume 83.8 fL (81.0-99.0); Mean Platelet Volume 10.3 fL (7.4-10.4); Nucleated Red Blood Cells % 0.1 %; Platelet Count 75 10^3/uL (130-400); Red Blood Cell Count 3.09 10^6/uL (4.20-5.40); Red Cell Dist. Width 15.9 % (11.5-14.5); White Blood Cell Count 13.5 10^3/uL (4.8-10.8)
[2024-06-24 03:42] VITALS: BMI 37.8
--- NOTE | 2024-06-24 03:47 | PTCARENOTE ---
systems reviewed- assessment unchanged. labs sent per order. crrt continues- see flowsheet.
[2024-06-24 04:32] LABS: ALT (SGPT) 55 U/L (0-35); AST (SGOT) 79 U/L (14-36); Albumin 3.1 g/dl (3.5-5.0); Alkaline Phosphatase 68 U/L (38-126); Blood Urea Nitrogen 17 mg/dl (7-17); Calcium 9.3 mg/dl (8.4-10.2); Carbon Dioxide 21 mmol/L (22-30); Chloride 101 mmol/L (98-107); Estimated Creatinine Clearance 72 ml/min; Glucose 127 mg/dl (70-99); Magnesium 2.2 mg/dl (1.6-2.3); Phosphorus 2.8 mg/dl (2.5-4.5); Potassium 3.8 mmol/L (3.5-5.1); Sodium 135 mmol/L (135-145); Total Bilirubin 7.3 mg/dl (0.2-1.3); Total Protein 5.5 g/dl (6.3-8.2); eGFR > 60.00
--- NOTE | 2024-06-24 07:29 | W.PN.INTV ---
Today's Communication / Plan
Recommendations
CRRT continues
Pressors
Spontaneous breathing trial
Begin to taper hydrocortisone
Antibiotics
Assessment
-
69-year-old woman with history of alcoholic cirrhosis came to the hospital complaining of increased abdominal girth, abdominal pain, poor p.o. intake, found to be hypotensive. Transferred to the intensive care unit due to lack of response to IV
fluids. Started on vasopressors 06/19/2024. Suspicious for spontaneous bacterial peritonitis
Septic shock
Worsening abdominal distention/abdominal pain
Possible spontaneous bacterial peritonitis vs ? Less likely colitis
CT abdomen pelvis 06/19/2024:Cirrhotic morphology with evidence of portal hypertension and moderate volume ascites.
Cholelithiasis. There is gallbladder wall thickening which is likely secondary to chronic liver disease.
Colonic diverticulosis. There is questionable wall thickening along the sigmoid colon and proximal ascending colon which may represent colitis.
Complex ventral hernia containing fat and ascites.
Respiratory failure requiring intubation-acute hypoxemic
Intubated 06/22/2024
Extubated
Hyponatremia acute kidney injury
Anion gap metabolic acidosis-increased lactic acid
Leukocytosis
Anemia
Elevated LFTs
Elevated ammonia
Limited DNR-no chest compressions or shocking
Conditions present prior admission:
Alcoholic cirrhosis since 2017
Portal hypertensive gastropathy
Hypervolemic hyponatremia
Ventral hernia history of asthma only follows up with primary care
Former alcohol use quit in 2017
Plan:
Continues to be critically ill on a ventilator as well as pressors receiving continuous renal replacement therapy
Ventilator settings reviewed-airway pressures adequate
Wean FiO2 and PEEP
Attempt spontaneous breathing trial again today
ABG 06/22/2024--30/169/7.35
Follow airway pressures and avoid barotrauma and volutrauma
Intensified nebulizers-significant wheezing on exam though may have 'cardiac' component with renal failure and fluid overload
Chest x-ray 06/22/2024-NAD, ET tube 4 cm above adan
Chest x-ray 06/24/2024-low lung volumes, no pneumothorax, no pleural effusions
VAP prevention protocol
Cultures reviewed
Broad-spectrum empiric antibiotics to cover spontaneous bacterial peritonitis
Infectious disease following-correspondence reviewed-continue meropenem
Norepinephrine and vasopressin and Arash-Synephrine as needed-consider Giapreza
Trend lactate
Initiate hydrocortisone 50 mg IV every 6 hours-random cortisol was 60, however, surviving sepsis guideline revision recommendations suggest consideration and fluids/pressor unresponsive patient's-begin to taper in the next 24 hours
Bicarb as needed
Monitor renal function
Nephrology following-correspondence reviewed-reviewed with Dr. Pickett
Replace electrolytes
Continuous renal replacement therapy initiated 06/22/2024
Status post 2 units FFP prior to dialysis catheter placement for elevated INR
Echocardiogram 06/21/2024-EF 55-60%, aortic sclerosis, PA systolic 38
Gastroenterology following-correspondence reviewed
MELD today 39
Transplant banking teacher at [place] updated by gastroenterology
Consider enteral feedings in the next couple days-will leave up to GI
Status post paracentesis 06/20/2024-WBC 6983, total protein less than 2, albumin less than 1, LDH 477, amylase 191
Repeat paracentesis 06/22/2024-WBC 3934, total protein 3.3, albumin 1.5, LDH 881, amylase 457, cultures pending
Follow hemoglobin-currently 8.1
Transfuse as needed
Monitor thrombocytopenia-currently 75
Antibiotics-continue per infectious disease
Albumin
Gastroenterology contacted tertiary center-no need for transfer at this time-consider transfer for consideration towards transplant
Nutrition per gastroenterology
Lactulose UT
PPI
Follow ammonia
Monitor neurologic status
CT head without obvious acute infarct
Consider neurology evaluation if mental status does not improve off sedation though TME likely due to sepsis, hypoperfusion, and hepatic encephalopathy
DVT prophylaxis-subcu heparin every 12-INR elevated-hold heparin
GI prophylaxis-on pantoprazole
Nutrition-avoid nasogastric tube with history of varices for now
Dr. Vaz reviewed with multiple family members including and 2 daughters at the bedside 06/22/2024-overall poor prognosis-they understand-POA now wants limited DNR-no chest compressions or shocking
Dr. Vaz reviewed with daughter and at the bedside-06/21/2024 updated on current clinical situation, critical nature of her multi organ failure, morbidity and high mortality rate unfortunately and discussed CODE STATUS as well
Dr. Vaz reviewed with daughters and at the bedside 06/22/2024-current clinical situation, mild improvement, potential Juanjose ICU course, ongoing need for renal replacement therapy and potential trial for spontaneous breathing trial
Dr. Vaz reviewed daughters as well as at the bedside 06/24/2024-including current clinical situation, ongoing need for CRRT, pressors, and attempts at spontaneous breathing trial
Critical care statement: A total of 45 minutes of critical care time was provided for this patient today. This includes management of unstable vital signs, evaluation of the patient at bedside, reviewing the patient's pertinent medical records
including radiographs, management of respiratory failure, noninvasive ventilation, following ABGs, pressor management, sepsis management, microbiology, laboratory evaluations, and discussion with primary team, consultants, pharmacy, nutrition,
physical therapy, case management, charge nurse, critical care nursing, and respiratory therapy.
Subjective Dataa
Subjective Data
Date of Service:
Date of Service: June 24, 2024
Chief Complaint: Skip Load Driver Follow Up (Septic shock) and Pulmonary Follow Up
Subjective:
Still quite sedate, not following commands, no increased secretions, still on pressors, still on the ventilator, unable to obtain review of systems
Review of Systems
General: Other (Per HPI)
Objective Data
Data Reviewed
Vital Signs / I&O / Oxygen:
Vital Signs
Temp Pulse Resp BP Pulse Ox
97.4 F 61 16 122/60 100
06/24/24 06:00 06/24/24 06:00 06/24/24 06:00 06/22/24 13:35 06/24/24 06:00
Intake and Output
06/23/24 06/24/24 06/25/24
06:59 06:59 06:59
Intake Total 1912.4 / 1934.6 1237.6 / 1237.6
Output Total 2019 3075 / 3175 100 / 100
Balance -107.6 / -170.4 -1837.4 / -1937.4 -100 / -100
SaO2 [A/C] 100
SaO2 100
Nasal Cannula flow liters per 2
minute
Physical Exam
General: Respiratory Distress (Mild at rest) and Comfortable
HEENT: Normocephalic, Anicteric and Moist Mucous Membranes
Cardiovascular: Regular Rhythm
Respiratory: Wheeze (Diffuse expiratory), Crackles (Basilar), Rhonchi (n), Accessory Resp Muscle Use (Mild), Stridor (n), ET Tube and Other (Decreased breath sounds both bases)
GI: Distended (Mildly tender, ascites.) and Other ( Ventral hernia not tender not erythematous)
Neurology: Unresponsive, Other and Other
Skin: Warm, Good Color, Cyanosis (n) and Rash
Labs/Micro/Reports
Lab Data
06/24/24 03:10
Laboratory Results
06/24/24
03:10
PT 30.2 H
INR 2.83
Microbiology
06/20/24 11:16 Peritoneal Fluid Body Fluid Culture - Preliminary
Gram negative bacilli
06/20/24 11:16 Peritoneal Fluid Gram Stain - Preliminary
06/19/24 18:26 Blood/Venous Blood Culture - Preliminary
No Growth in 4 days- Final report to follow
06/20/24 12:38 Blood/Venous Blood Culture - Preliminary
No Growth in 72 hours- Final report to follow
06/22/24 13:05 Peritoneal Fluid Body Fluid Culture - Preliminary
No Growth After 18-24 Hours
06/22/24 13:05 Peritoneal Fluid Gram Stain - Preliminary
[2024-06-24] MEDS: DUONEB 3 ML INH ×4 (07:41→21:08)
[2024-06-24] MEDS: PROTONIX IV 40 MG IV (07:57)
[2024-06-24] MEDS: NSS (PRESERVATIVE FREE) 10 ML IV (07:57)
--- NOTE | 2024-06-24 08:30 | PTCARENOTE ---
pt received from previous rn- ett to vent, see settings as charted. SAT began at 0745. Not initiating breaths at this time. levophed for map>65 infusing. pt cpot 0. grimaces with oral care and stimulation at times, does not follow commands. nsr on
monitor. generalized +3 pitting anasarca, jaundice in color. remains with fms and lawler- lawler with yellow urine. crrt running per order- see flowsheet. right ij HD site c/d/i. left double lumen picc c/d/i flushes with blood return. right radial
sidney zeroed and functioning. remains on elda hugger. turned and repositioned. daughters at bedside- educated about plan of care- verbalized understanding. all safety precautions in place.
--- NOTE | 2024-06-24 08:55 | W.PN.GI.CBS2 ---
Today's Communication / Plan
-
MELD today 39
Transplant hepatology at [facility] updated as to wean stable enough to consider transfer
If not able to be extubated in next few days need to consider enteral feeding
Assessment / Plan
-
69 year-old female with alcoholic cirrhosis presenting with abdominal pain most suggestive of SBP. Her MELD 1 month ago was 15, 06/20/2024 was 32 and on 06/21/2024 is 39. She continues on 3 pressor support (Levophed, Arash-Synephrine and
vasopressin), continues on meropenem and micafungin. Continues to be followed by pulmonary/critical care, infectious disease, internal medicine, renal. We have reached out to her hepatology team at [facility]. She
continues on albumin replacement. We will give an additional 37.5 g now continued by 1 g/kg/day. Unfortunately because she continues to have worsening renal function as well as INR. Awaiting blood cultures and paracentesis fluid cultures. Will
give lactulose enema as patient unable to take in p.o. Discussed with daughter Nona at bedside. She states that the patient has 4 children and the person who would be making medical decisions for her mother is Margaux Sequeira ([phone]).
Impression:
SBP w/ sepsis - she is critically ill
Weaned down to 1pressor (levophed)
Septic shock
Pancytopenia
Hyponatremia
LILIBETH
Alcoholic cirrhosis
Portal hypertensive gastropathy
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
Recommendations
- MELD 3.0 today 39 which portends a 21.% estimated 90 day survival. Transplant boilermaker welder Dr Lozoya updated to see when transfer would be appropriate.
- Continue antibiotics as per recommended by infectious disease.
- Repeat diagnostic paracentesis 06/22 with improvement
- Continue pressor support currently on levophed wean as tolerates
- Renal following with CRRT started 06/22
- Blood cultures thus far negative. Awaiting gram stains
- Trend labs
- Avoid hepatoxins.
Will follow with you.
Subjective
Subjective
Date of Service: June 24, 2024
No acute events overnight. Still making stool through rectal bag. She continues on CRRT pulling 100mL/hr. Off sedation currently
Objective
Data Reviewed
Laboratory Data:
Laboratory Results
06/24/24 03:10
Laboratory Results
PT 30.2 Sec (11.4-14.6) H 06/24/24 03:10
INR 2.83 06/24/24 03:10
APTT 41.6 Sec (23.4-35.0) H 06/19/24 22:00
Phosphorus 2.8 mg/dl (2.5-4.5) 06/24/24 03:10
Phosphorus Cancelled 06/24/24 03:10
Magnesium 2.2 mg/dl (1.6-2.3) 06/24/24 03:10
Magnesium Cancelled 06/24/24 03:10
Total Bilirubin 7.3 mg/dl (0.2-1.3) H 06/24/24 03:10
AST 79 U/L (14-36) H 06/24/24 03:10
ALT 55 U/L (0-35) H 06/24/24 03:10
Alkaline Phosphatase 68 U/L (38-126) 06/24/24 03:10
Lipase 27 U/L (23-300) 06/19/24 09:42
Vital Signs and I&O:
Vital Signs
Temp Pulse Resp BP Pulse Ox
96.3 F L 61 16 122/60 100
06/24/24 08:14 06/24/24 06:00 06/24/24 06:00 06/22/24 13:35 06/24/24 08:35
I&O
06/23/24 06/24/24 06/25/24
06:59 06:59 06:59
Intake Total 1912.4 / 1934.6 1237.6 / 1237.6
Output Total 2019 3075 / 3175
Balance -107.6 / -170.4 -1837.4 / -1937.4 -
Physical Exam
Physical Exam
GEN: No acute distress, sedated and intubatted
HEENT: +icteric, mouth bloody with mouth guard in place
GI: soft, obese mildly-distended, not tender to palpation, normal active bowel sounds, no hepatosplenomegaly
EXT: warm, well perfused, trace edema bilaterally
NEURO: AAOx3, non-focal
[2024-06-24 09:26] LABS: Ionized Calcium 1.18 mMOL/L (1.15-1.33)
--- NOTE | 2024-06-24 09:33 | W.PN.NEPH.PH ---
Today's Communication / Plan
-
CRRT
Assessment/Plan
-
Assessment
Alcoholic cirrhosis
Hypotension
Abdominal pain
Sepsis
Lactic acidosis
Metabolic acidosis
LILIBETH
Hyponatremia
Plan
Follow BMP
CRRT continues for now
Keep mean arterial pressure greater than 65
Wean pressors as allowed
Antibiotics per infectious disease
can consider switch to IHD once off pressors
d/w family
Critical care time spent 31 minutes
-
-
Date of Service: June 24, 2024
CC / HPI / ROS
-
Chief Complaint:
Acute kidney injury
History of Present Illness:
Critically ill in ICU on CRRT
on pressors for hypotension
Creatinine down to 0.8
Hyponatremia improved
metabolic acidosis resolved
On ventilator, sedated
oliguric
Review of Systems:
Remains oliguric
Sedated
Labs
-
Labs:
WBC 13.5 10^3/uL (4.8-10.8) H 06/24/24 03:10
RBC 3.09 10^6/uL (4.20-5.40) L 06/24/24 03:10
Hgb 9.6 g/dL (12.0-16.0) L 06/24/24 03:10
Hct 25.9 % (37.0-47.0) L 06/24/24 03:10
Plt Count 75 10^3/uL (130-400) L 06/24/24 03:10
eGFR > 60.00 06/24/24 03:10
eGFR Cancelled 06/24/24 03:10
Albumin 3.1 g/dl (3.5-5.0) L 06/24/24 03:10
Physical Exam
-
Vital Signs:
Vital Signs
Temp Pulse Resp BP Pulse Ox
96.3 F L 61 16 122/60 100
06/24/24 09:00 06/24/24 06:00 06/24/24 06:00 06/22/24 13:35 06/24/24 08:35
Cardiovascular:: Regular rate and rhythm
Respiratory:: Bilateral: Coarse
Lung Excursion:: Normal
Abdomen:: Nontender and Soft
Bowel Sounds:: Normal
Extremity Edema:: +2: Bilateral:
[2024-06-24 09:41] LABS: Blood Urea Nitrogen 17 mg/dl (7-17); Calcium 9.3 mg/dl (8.4-10.2); Carbon Dioxide 24 mmol/L (22-30); Chloride 101 mmol/L (98-107); Estimated Creatinine Clearance 72 ml/min; Glucose 126 mg/dl (70-99); Magnesium 2.1 mg/dl (1.6-2.3); Phosphorus 2.7 mg/dl (2.5-4.5); Sodium 136 mmol/L (135-145); eGFR > 60.00
[2024-06-24 09:46] LABS: Potassium 3.8 mmol/L (3.5-5.1)
--- NOTE | 2024-06-24 10:15 | VATNOTE ---
Addendum entered by Stephania Pa RN 06/24/24 12:33:
Biopatch not noted during routine assessment of RIJ nontunneled HDC. PCN notified, will change dressing today.
Original Note:
During routine assessment, +3 pitting edema noted to pt's left hand. No appreciable swelling noted in right hand. PCN notified of swelling in PICC arm and peripheral vascular ultrasound recommended; PCN to discuss with scarifier operator during rounds.
[2024-06-24] MEDS: CALCIUM GLUCONATE 100 IV (10:22)
--- NOTE | 2024-06-24 10:32 | W.PN.ID1 ---
Date of Service
Date of Service: June 24, 2024
Today's Communication
Continue meropenem pending final cx data.
Assessment / Plan
# Spontaneous bacterial peritonitis
# Decompensated ETOH cirrhosis, MELD 39
# Septic shock weaned off 2 pressors, now on 1 pressor,
# multisytem organ failure
# LILIBETH - on CRRT
# Hepatic Encephalopathy
- 06/20 s/p paracentesis 2.5 L ascites: 6,983 wbc, 79% polys
06/20 Ascites Cx GNR
-06/22 ascites: 3934 wbc, 97% polys
06/22 Ascites cx neg to date
- blood cx neg to date
-Continue meropenem (d5), dosed for CRRT
- Follow vitals/clinically
- Per GI, transfer to [facility] when stable.
-Prognosis remains guarded.
Chief Complaint
-: Clinical Sepsis
Subjective / Review of Systems
Remains on vent.
Warming blanket in place.
Vital Signs / Physical Exam
Vital Signs
Vital Signs
Temp Pulse Resp BP Pulse Ox
97.1 F 76 15 122/60 99
06/24/24 10:00 06/24/24 10:15 06/24/24 10:15 06/22/24 13:35 06/24/24 10:15
Physical Exam
Constitutional: Acutely Ill
Cardiovascular: Regular Rate and S1/S2
Pulmonary: Clear (anteriorly)
Gastrointestinal: Soft, Non Tender and Distended (mild )
Extremities: Edema
Skin: Jaundice
Objective Data
Lab Data
Lab Results
06/24/24 03:10
06/24/24 09:12
PT 30.2 Sec (11.4-14.6) H 06/24/24 03:10
INR 2.83 06/24/24 03:10
APTT 41.6 Sec (23.4-35.0) H 06/19/24 22:00
Estimated Creat Clear 72 ml/min 06/24/24 09:12
Lactic Acid 3.0 mmol/L (0.7-2.0) H 06/21/24 09:48
Total Bilirubin 7.3 mg/dl (0.2-1.3) H 06/24/24 03:10
AST 79 U/L (14-36) H 06/24/24 03:10
ALT 55 U/L (0-35) H 06/24/24 03:10
Alkaline Phosphatase 68 U/L (38-126) 06/24/24 03:10
Most recent labs reviewed.
Micro Results:
06/20/24 11:16 Body Fluid Culture - Preliminary
Peritoneal Fluid Gram negative bacilli
Gram Stain - Preliminary
06/19/24 18:26 Blood Culture - Preliminary
Blood/Venous No Growth in 4 days- Final report to follow
06/20/24 12:38 Blood Culture - Preliminary
Blood/Venous No Growth in 72 hours- Final report to follow
06/22/24 13:05 Body Fluid Culture - Preliminary
Peritoneal Fluid No Growth After 18-24 Hours
Gram Stain - Preliminary
06/19/24 CT a/p: Cirrhotic morphology with evidence of portal hypertension and moderate volume ascites. Cholelithiasis. There is gallbladder wall thickening which is likely secondary to chronic liver disease. Colonic diverticulosis. There is
questionable wall thickening along the sigmoid colon and proximal ascending colon which may represent colitis. Complex ventral hernia containing fat and ascites.
06/19/24 CXR: No active cardiopulmonary disease. The tip of the PICC line is at the cavoatrial junction
--- NOTE | 2024-06-24 12:10 | PTCARENOTE ---
SAT continues, Pt now has cough with suction, no gag, not following commands, so spontaneous breaths. CRRT continues without issue. Levophed continues.
--- NOTE | 2024-06-24 13:56 | PTCARENOTE ---
Initiating breaths, spontaneous cough. To spont vent settings 8/5/40%. Vt 399, RR 13. HD cath dressing changed.
[2024-06-24] MEDS: LEVOPHED 258 MG IV (14:06)
--- NOTE | 2024-06-24 14:20 | W.PN.HOSP.TC ---
Today's Communication/Plan
-
cont mgmt
pending SBT eventual extubation
Assessment / Plan
Assessment / Plan
69yo F with PMHx of liver cirrhosis, COPD presented with worsening abdominal pain, managed for SBO, developed worsening LILIBETH and coagulopathy with acute hepatic encephalopathy, so had to be intubated on 06/22/24 for protection of airways. Started on
CRRT on 06/23/24 with improvement in pressor requirements and awaiting SBT
A/P:
#septic shock 2/2 SBP in patient with liver cirrhosis
#Acute hepatic encephalopathy
Pressors, sedation and vent support as per coldfusion
Lactulose enema
S/P paracentesis on 06/20/24 with Klebsiela in fluid cultures, meeting criteria for SBP by WBC count 6983, on repeated paracentesis 3934 on 06/23/24
Repeated paracentesis on 06/22/24
Follow Bcx
ID follows: merrem/
vanco and micafungin discontinued
#Acute hepatic failure on chronic liver cirrhosis
#Esophageal varices
GI follows
daily MELD labs
Steroids for sepsis
GI follows - in close communication with transplant hepatology
#Hyponatremia with HAGMA
#LILIBETH, most likely 2/2 shock, cannot r/o HRS
Albumin
Nephrology for dialysis
follow BMP
s/p 3% sodium IV
#Anemia
no over bleeding seen
s/p 1unit PRBC on 06/22/24
follow H&H
PPI
#Thrombocytopenia
#Transaminitis
2/2 liver disease
#Coagulopathy
s/p FFP on 07/02/24 for HD catheter placement
follow daily INR
DVT ppx SCD (2/2 coagulopathy)
LImited DNR - no CPR
I have spent at least 39min reviewing chart, test results, communication with consultants and family and direct patient care
Anticipated Discharge: > 48 hours
Subjective/Interval History
-
Date of Service: June 24, 2024
Objective Data
-
Labs:
Laboratory Results
06/24/24 06/24/24 06/24/24
03:10 03:10 03:10
WBC 13.5 H
Hgb 9.6 L
Hct 25.9 L
Plt Count 75 L
PT 30.2 H
INR 2.83
Sodium 135 Cancelled
Potassium 3.8 Cancelled
Chloride 101
Carbon Dioxide
BUN
Creatinine
Glucose
Calcium
Total Bilirubin
AST
ALT
Alkaline Phosphatase
06/24/24 06/24/24 06/24/24
03:10 03:10 03:10
WBC
Hgb
Hct
Plt Count
PT
INR
Sodium
Potassium
Chloride Cancelled
Carbon Dioxide 21 L Cancelled
BUN 17 Cancelled
Creatinine 0.8
Glucose
Calcium
Total Bilirubin
AST
ALT
Alkaline Phosphatase
06/24/24 06/24/24 06/24/24
03:10 03:10 03:10
WBC
Hgb
Hct
Plt Count
PT
INR
Sodium
Potassium
Chloride
Carbon Dioxide
BUN
Creatinine Cancelled
Glucose 127 H Cancelled
Calcium 9.3 Cancelled
Total Bilirubin 7.3 H
AST 79 H
ALT 55 H
Alkaline Phosphatase 68
06/24/24 06/24/24
09:12 18:45
WBC
Hgb
Hct
Plt Count
PT
INR
Sodium 136 Pending
Potassium 3.8 Pending
Chloride 101 Pending
Carbon Dioxide 24 Pending
BUN 17 Pending
Creatinine 0.8 Pending
Glucose 126 H Pending
Calcium 9.3 Pending
Total Bilirubin
AST
ALT
Alkaline Phosphatase
Vital Signs:
Vital Signs
Temp Pulse Resp BP Pulse Ox
96.7 F L 77 16 122/60 99
06/24/24 13:00 06/24/24 12:00 06/24/24 12:00 06/22/24 13:35 06/24/24 13:48
I&O
06/23/24 06/24/24 06/25/24
06:59 06:59 06:59
Intake Total 1912.4 / 1934.6 1237.6 / 1256.1 148.1 / 148.1
Output Total 2019 3075 / 3187 1046 / 1046
Balance -107.6 / -170.4 -1837.4 / -1930.9 -897.9 / -897.9
Review of Systems
-
Unable to obtain full review of systems at this time due to: Patient Intubation
Physical Exam
-
General: Intubated
Respiratory: Clear to Auscultation
Cardiac: Regular Rhythm
GI: Soft, Nontender and Nondistended
Skin: Warm
--- NOTE | 2024-06-24 14:50 | CM ---
CM following re: discharge planning.
Discussed in Rounds, reviewed pt's chart, met with pt and pt's family at bedside. Pt's two daughters and pt's participated in Rounds meeting daily.
Per Rounds meeting, pt remains critically ill, minimally responsive, on the ventilator, on pressors with renal failure and worsening liver failure, continue supportive care.
D/C connelly: uncertain at this time and will depend on pt's progress.
CM will follow with discharge plan updates as hospitalization progresses
--- NOTE | 2024-06-24 16:21 | PTCARENOTE ---
Increased non-purposful mvmt noted, restraints applied. No issues with CRRT at this time. Negative 100cc/hr continues. Fentanyl and propofol discontinued. PRN fentanyl continues. Family at bedside.
[2024-06-24 19:11] LABS: Ionized Calcium 1.26 mMOL/L (1.15-1.33)
[2024-06-24 19:15] LABS: Blood Urea Nitrogen 16 mg/dl (7-17); Calcium 9.4 mg/dl (8.4-10.2); Carbon Dioxide 25 mmol/L (22-30); Chloride 102 mmol/L (98-107); Estimated Creatinine Clearance 82 ml/min; Glucose 112 mg/dl (70-99); Phosphorus 2.6 mg/dl (2.5-4.5); Potassium 4.1 mmol/L (3.5-5.1); Sodium 134 mmol/L (135-145); eGFR > 60.00
[2024-06-24] MEDS: SODIUM PHOSPHATE 260 MEQ IV (19:40)
--- NOTE | 2024-06-24 19:55 | PTCARENOTE ---
received pt from previous rn- ett to vent- sedation off, pt restless in bed at times, not following commands but does move extremities. pupils equal and reactive. pt remains jaundice. nsr on monitor, see vent settings as charted- wheezes and
crackles auscultated. suctioned for thick yellow secretions. oral care provided. crrt continues as per orders, labs sent, see mar for electrolyte replacement. levophed infusing to maintain map >65. right radial sidney zeroed and functioning. left
picc and right ij hd cath sites c.d.i. remains with generalized +3 anasarca, abdomen taught. all safety precautions in place. daughters at bedside educated about plan of care, verbalized understanding.
[2024-06-24] MEDS: SUBLIMAZE 50 MCG IV (22:50)
[2024-06-25] MEDS: SOLU-CORTEF 50 MG IV ×3 (00:08→17:57)
[2024-06-25 00:25] LABS: Ionized Calcium 1.22 mMOL/L (1.15-1.33)
--- NOTE | 2024-06-25 00:34 | PTCARENOTE ---
systems reviewed- assessment unchanged. pt placed back on ac on vent by rt. crrt continues. labs sent as per order.
[2024-06-25 00:56] LABS: Blood Urea Nitrogen 15 mg/dl (7-17); Calcium 8.9 mg/dl (8.4-10.2); Carbon Dioxide 22 mmol/L (22-30); Chloride 103 mmol/L (98-107); Estimated Creatinine Clearance 96 ml/min; Glucose 118 mg/dl (70-99); Magnesium 1.9 mg/dl (1.6-2.3); Sodium 138 mmol/L (135-145); eGFR > 60.00
[2024-06-25] MEDS: MAGNESIUM SULFATE 100 IV (01:18)
[2024-06-25] MEDS: MERREM 500 MG IV ×4 (01:19→21:24)
[2024-06-25] MEDS: STERILE WATER FOR INJECTION 10 ML IV ×4 (01:19→21:24)
[2024-06-25] MEDS: SUBLIMAZE 50 MCG IV (02:07)
--- NOTE | 2024-06-25 04:10 | PTCARENOTE ---
assessment unchanged, turned and repositioned. oral care provided. crrt continues. mag rider infused per order
[2024-06-25 05:06] VITALS: BMI 37.1
[2024-06-25 06:25] LABS: Ionized Calcium 1.19 mMOL/L (1.15-1.33)
[2024-06-25 06:34] LABS: % Basophils 0.8 % (0-2); % Eosinophils 0.1 % (0-6); % Immature Granulocytes 4.2 % (0-0.5); % Monocytes 5.4 % (1.7-9.3); % Neutrophils 86.1 % (42.2-75.2); Absolute Basophils 0.2 10^3/uL (0-0.2); Absolute Lymphocytes 0.7 10^3/uL (1.2-3.4); Absolute Monocytes 1.3 10^3/uL (0.1-0.6); Absolute Neutrophils 19.7 10^3/uL (1.4-6.5); Hematocrit 33.2 % (37.0-47.0); Mean Corp Hgb Conc. 35.9 g/dL (33.0-37.0); Mean Corpuscular Volume 86.4 fL (81.0-99.0); Mean Platelet Volume 10.6 fL (7.4-10.4); Nucleated Red Blood Cells % 0.2 %; Platelet Count 58 10^3/uL (130-400); Red Blood Cell Count 3.81 10^6/uL (4.20-5.40); Red Cell Dist. Width 16.5 % (11.5-14.5); White Blood Cell Count 22.9 10^3/uL (4.8-10.8)
[2024-06-25 06:38] LABS: INR 2.54; PT 27.7 Sec (11.4-14.6)
[2024-06-25] MEDS: CALCIUM GLUCONATE 100 IV ×2 (06:46→18:42)
[2024-06-25 06:52] LABS: ALT (SGPT) 50 U/L (0-35); AST (SGOT) 79 U/L (14-36); Albumin 3.2 g/dl (3.5-5.0); Alkaline Phosphatase 83 U/L (38-126); Blood Urea Nitrogen 15 mg/dl (7-17); Calcium 9.2 mg/dl (8.4-10.2); Carbon Dioxide 21 mmol/L (22-30); Chloride 103 mmol/L (98-107); Estimated Creatinine Clearance 81 ml/min; Glucose 100 mg/dl (70-99); Magnesium 2.7 mg/dl (1.6-2.3); Phosphorus 3.1 mg/dl (2.5-4.5); Potassium 4.2 mmol/L (3.5-5.1); Sodium 137 mmol/L (135-145); Total Bilirubin 9.7 mg/dl (0.2-1.3); Total Protein 5.9 g/dl (6.3-8.2); Triglycerides 83 mg/dl (10-149); eGFR > 60.00
[2024-06-25] MEDS: DUONEB 3 ML INH ×4 (07:17→20:02)
[2024-06-25] MEDS: RFP-401 HD Soln (K+ 4 mEq/L) 15000 ML CRRT-IRR ×2 (07:47→16:12)
--- NOTE | 2024-06-25 07:58 | W.PN.INTV ---
Today's Communication / Plan
Recommendations
Renal replacement therapy
Antibiotics
Spontaneous breathing trial
Check ammonia
Prognosis guarded
Assessment
-
69-year-old woman with history of alcoholic cirrhosis came to the hospital complaining of increased abdominal girth, abdominal pain, poor p.o. intake, found to be hypotensive. Transferred to the intensive care unit due to lack of response to IV
fluids. Started on vasopressors 06/19/2024. Suspicious for spontaneous bacterial peritonitis
Septic shock
Worsening abdominal distention/abdominal pain
Possible spontaneous bacterial peritonitis vs ? Less likely colitis
CT abdomen pelvis 06/19/2024:Cirrhotic morphology with evidence of portal hypertension and moderate volume ascites.
Cholelithiasis. There is gallbladder wall thickening which is likely secondary to chronic liver disease.
Colonic diverticulosis. There is questionable wall thickening along the sigmoid colon and proximal ascending colon which may represent colitis.
Complex ventral hernia containing fat and ascites.
Respiratory failure requiring intubation-acute hypoxemic
Intubated 06/22/2024
Extubated
Hyponatremia acute kidney injury
Anion gap metabolic acidosis-increased lactic acid
Leukocytosis
Anemia
Elevated LFTs
Elevated ammonia
Limited DNR-no chest compressions or shocking
Conditions present prior admission:
Alcoholic cirrhosis since 2017
Portal hypertensive gastropathy
Hypervolemic hyponatremia
Ventral hernia history of asthma only follows up with primary care
Former alcohol use quit in 2017
Plan:
Continues to be critically ill on a ventilator as well as pressors receiving continuous renal replacement therapy
Ventilator settings reviewed-airway pressures adequate
Wean FiO2 and PEEP
Continue spontaneous breathing trial of extended trials-overall tolerating well, leery about extubation due to severely decline mental status
ABG 06/22/2024--30/169/7.35
Follow airway pressures and avoid barotrauma and volutrauma
Intensified nebulizers-significant wheezing on exam though may have 'cardiac' component with renal failure and fluid overload
Chest x-ray 06/22/2024-NAD, ET tube 4 cm above adan
Chest x-ray 06/24/2024-low lung volumes, no pneumothorax, no pleural effusions
Follow occasional chest x-ray
VAP prevention protocol
Cultures reviewed
Broad-spectrum empiric antibiotics to cover spontaneous bacterial peritonitis
Infectious disease following-correspondence reviewed-continue meropenem-May de-escalate tomorrow
Norepinephrine and vasopressin and Arash-Synephrine as needed-consider Giapreza
Trend lactate
Hydrocortisone 50 mg IV every 6 hours-random cortisol was 60, however, surviving sepsis guideline revision recommendations suggest consideration and fluids/pressor unresponsive patient's-begin to taper
Monitor renal function
Nephrology following-correspondence reviewed-reviewed with Dr. Pickett-continue for an additional 24 hours
Replace electrolytes
Continuous renal replacement therapy initiated 06/22/2024
Status post 2 units FFP prior to dialysis catheter placement for elevated INR
Echocardiogram 06/21/2024-EF 55-60%, aortic sclerosis, PA systolic 38
Gastroenterology following-correspondence reviewed
MELD today 39
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
Consider enteral feedings in the next couple days-will leave up to GI
Status post paracentesis 06/20/2024-WBC 6983, total protein less than 2, albumin less than 1, LDH 477, amylase 191
Repeat paracentesis 06/22/2024-WBC 3934, total protein 3.3, albumin 1.5, LDH 881, amylase 457, cultures pending
Follow hemoglobin-currently 8.1
Transfuse as needed
Monitor thrombocytopenia-currently 75
Antibiotics-continue per infectious disease
Albumin
Gastroenterology contacted tertiary center-no need for transfer at this time-consider transfer for consideration towards transplant
Nutrition per gastroenterology
Lactulose GA
PPI
Repeat ammonia
Monitor neurologic status
CT head without obvious acute infarct
Consider neurology evaluation if mental status does not improve off sedation though TME likely due to sepsis, hypoperfusion, and hepatic encephalopathy
DVT prophylaxis-subcu heparin every 12-INR elevated-hold heparin
GI prophylaxis-on pantoprazole
Nutrition-avoid nasogastric tube with history of varices for now
Dr. Vaz reviewed with multiple family members including and 2 daughters at the bedside 06/22/2024-overall poor prognosis-they understand-POA now wants limited DNR-no chest compressions or shocking
Dr. Vaz reviewed with daughter and at the bedside-06/21/2024 updated on current clinical situation, critical nature of her multi organ failure, morbidity and high mortality rate unfortunately and discussed CODE STATUS as well
Dr. Vaz reviewed with daughters and at the bedside 06/22/2024-current clinical situation, mild improvement, potential [facility] ICU course, ongoing need for renal replacement therapy and potential trial for spontaneous breathing trial
Dr. Vaz reviewed daughters as well as at the bedside 06/24/2024-including current clinical situation, ongoing need for CRRT, pressors, and attempts at spontaneous breathing trial
Dr. Vaz reviewed with daughter at the bedside 06/25/2024-current clinical condition, spontaneous breathing trial, decreased mentation, overall slight improvement
Critical care statement: A total of 45 minutes of critical care time was provided for this patient today. This includes management of unstable vital signs, evaluation of the patient at bedside, reviewing the patient's pertinent medical records
including radiographs, management of respiratory failure, noninvasive ventilation, following ABGs, pressor management, sepsis management, microbiology, laboratory evaluations, and discussion with primary team, consultants, pharmacy, nutrition,
physical therapy, case management, charge nurse, critical care nursing, and respiratory therapy.
Subjective Dataa
Subjective Data
Date of Service:
Date of Service: June 25, 2024
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
Subjective:
Tolerating spontaneous breathing trial, tolerating chronic renal replacement therapy, mental status still declined, opens eyes, not following commands
Review of Systems
General: Other (Per HPI)
Objective Data
Data Reviewed
Vital Signs / I&O / Oxygen:
Vital Signs
Temp Pulse Resp BP Pulse Ox
97.2 F 98 22 122/60 98
06/25/24 03:18 06/25/24 06:15 06/25/24 06:15 06/22/24 13:35 06/25/24 06:15
Intake and Output
06/24/24 06/25/24 06/26/24
06:59 06:59 06:59
Intake Total 1237.6 / 1256.1 684.5 / 706.5
Output Total 3075 / 3187 3110 / 3207 97 / 97
Balance -1837.4 / -1930.9 -2425.5 / -2500.5 -75 / -75
SaO2 [CPAP/PSV] 98
SaO2 [A/C] 98
SaO2 98
Nasal Cannula flow liters per 2
minute
Physical Exam
General: Respiratory Distress (Mild at rest) and Comfortable
HEENT: Normocephalic, Anicteric and Moist Mucous Membranes
Cardiovascular: Regular Rhythm
Respiratory: Wheeze (Diffuse expiratory), Crackles (Basilar), Rhonchi (n), Accessory Resp Muscle Use (Mild), Stridor (n), ET Tube and Other (Decreased breath sounds both bases)
GI: Distended (Mildly tender, ascites.) and Other ( Ventral hernia not tender not erythematous)
Neurology: Unresponsive, Other and Other
Skin: Warm, Good Color, Cyanosis (n) and Rash
Labs/Micro/Reports
Lab Data
06/25/24 06:15
Laboratory Results
06/25/24
06:15
PT 27.7 H
INR 2.54
Microbiology
06/19/24 18:26 Blood/Venous Blood Culture - Final
No Growth - Final Report
06/20/24 11:16 Peritoneal Fluid Body Fluid Culture - Final
Klebsiella pneumoniae
06/20/24 11:16 Peritoneal Fluid Gram Stain - Final
06/20/24 12:38 Blood/Venous Blood Culture - Preliminary
No Growth in 4 days- Final report to follow
06/22/24 13:05 Peritoneal Fluid Body Fluid Culture - Preliminary
No Growth After 48 Hours
06/22/24 13:05 Peritoneal Fluid Gram Stain - Preliminary
[2024-06-25] MEDS: NSS (PRESERVATIVE FREE) 10 ML IV (08:00)
[2024-06-25] MEDS: PROTONIX IV 40 MG IV (08:01)
--- NOTE | 2024-06-25 08:02 | W.PN.NEPH.PH ---
Today's Communication / Plan
-
Continue CRRT for 24 more hours
Assessment/Plan
-
Assessment
Alcoholic cirrhosis
Hypotension
Abdominal pain
Sepsis
Lactic acidosis
Metabolic acidosis
LILIBETH
Hyponatremia
Plan
Follow BMP
CRRT continues for now as patient remains anuric, hemodynamically
Keep mean arterial pressure greater than 65
Wean pressors as allowed
Antibiotics per infectious disease
can consider switch to IHD once off pressors
d/w family
Critical care time spent 31 minutes
-
-
Date of Service: June 25, 2024
CC / HPI / ROS
-
Chief Complaint:
Acute kidney injury
History of Present Illness:
Critically ill in ICU on CRRT
on pressors for hypotension
Creatinine down to 0.7
Hyponatremia improved
metabolic acidosis resolved
On ventilator, sedated
oliguric
Review of Systems:
Remains oligo-anuric
Sedated
Labs
-
Labs:
WBC 22.9 10^3/uL (4.8-10.8) H 06/25/24 06:15
RBC 3.81 10^6/uL (4.20-5.40) L 06/25/24 06:15
Hgb 12.0 g/dL (12.0-16.0) D 06/25/24 06:15
Hct 33.2 % (37.0-47.0) L 06/25/24 06:15
Plt Count 58 10^3/uL (130-400) L D 06/25/24 06:15
eGFR > 60.00 06/25/24 06:15
Albumin 3.2 g/dl (3.5-5.0) L 06/25/24 06:15
Physical Exam
-
Vital Signs:
Vital Signs
Temp Pulse Resp BP Pulse Ox
97.2 F 98 22 122/60 98
06/25/24 03:18 06/25/24 06:15 06/25/24 06:15 06/22/24 13:35 06/25/24 06:15
Cardiovascular:: Regular rate and rhythm
Respiratory:: Bilateral: Coarse
Lung Excursion:: Normal
Abdomen:: Nontender and Soft
Bowel Sounds:: Normal
Extremity Edema:: +2: Bilateral:
[2024-06-25 08:06] LABS: Absolute Neutrophils -Man Diff 19.9 10^3/uL (1.4-6.5); Band Neutrophils 16 % (0-3); Segmented Neutrophils 71 % (42-75)
[2024-06-25 08:07] LABS: Anisocytosis Slight; Hypochromasia Slight; Lymphocytes 2 % (20-51); Metamyelocytes 1 % (-); Monocytes 8 % (2-9); Myelocytes 2 % (-); Normal RBC Morphology No; Platelets Checked Yes; Polychromasia Slight
[2024-06-25 08:08] LABS: Acanthocytes 1+; Target Cells 1+; Total Cells Counted 100
--- NOTE | 2024-06-25 08:10 | W.PN.UPDATE ---
Update Note
Progress Note Update
Patient seen on CRRT
remains anuric
hemodynamically more stable off diuretics
still volume overloaded
replacement rate at 1.5
qb 250
4K bath
--- NOTE | 2024-06-25 09:00 | PTCARENOTE ---
Rec'd care of patient at 0700. Patient lethargic. No eye response to verbal or tactile stimuli. Sedation off since yesterday 744. +Corneal and gag reflexes. Pupils equal and reactive, +4mm. B/l feet observed to be moving. Trace movement in b/l UE.
Does not follow commands. NSR-ST on tele monitor. Rate in the 90-100's. +2/3 anasarca. +4 edema in b/l hand. Arms elevated on pillows. Palpable pulses. SBT initiated at 0717. 8/5 40%. #8 ett @ 21cm. Lung sounds coarse with inspiratory and expiratory
wheezes. Scattered crackles posteriorly. Pulse ox 98%. FMS in place for liquid stools. Leger catheter putting out 0-1 cc/hr. Discussed with Group Counselor. CRRT to continue another day. Vitals stable. Right radial sidney leveled and zeroed. Levophed
off since last night 2214.
--- NOTE | 2024-06-25 09:22 | W.PN.ID1 ---
Date of Service
Date of Service: June 25, 2024
Today's Communication
- continue meropenem today, if ongoing clinical improvement may deescalate tomorrow
Assessment / Plan
# Spontaneous bacterial peritonitis
# Decompensated ETOH cirrhosis, MELD 39
# Septic shock weaned off 2 pressors, now on 1 pressor,
# multisytem organ failure
# LILIBETH - on CRRT
# Hepatic Encephalopathy
- 06/20 s/p paracentesis 2.5 L ascites: 6,983 wbc, 79% polys
06/20 Ascites Cx K pneumoniae
-06/22 ascites: 3934 wbc, 97% polys
06/22 Ascites cx neg to date
- blood cx x2 finalized negative
- Continue meropenem (d6), dosed for CRRT
- continue meropenem today, if ongoing clinical improvement may deescalate tomorrow
- Follow vitals/clinically
- Per GI, transfer to [facility] when stable.
-Prognosis remains guarded; high mortality risk
Chief Complaint
-: Clinical Sepsis
Subjective / Review of Systems
hypothermic overnight
pressors weaned off
CRRT to continue another day
Vital Signs / Physical Exam
Vital Signs
Vital Signs
Temp Pulse Resp BP Pulse Ox
97.5 F 100 21 122/60 98
06/25/24 08:30 06/25/24 09:00 06/25/24 09:00 06/22/24 13:35 06/25/24 09:00
Physical Exam
Constitutional: Chronically Ill
Cardiovascular: Regular Rate and S1/S2; Negative Murmur or Rub
Pulmonary: Clear and Symmetric; Negative Wheezes or Rales
Gastrointestinal: Soft, Non Tender, Non Distended and Normal Bowel Sounds
Skin: Warm and Dry; Negative Rash or Jaundice
Objective Data
Lab Data
Lab Results
06/25/24 06:15
PT 27.7 Sec (11.4-14.6) H 06/25/24 06:15
INR 2.54 06/25/24 06:15
APTT 41.6 Sec (23.4-35.0) H 06/19/24 22:00
Estimated Creat Clear 81 ml/min 06/25/24 06:15
Lactic Acid 3.0 mmol/L (0.7-2.0) H 06/21/24 09:48
Total Bilirubin 9.7 mg/dl (0.2-1.3) H 06/25/24 06:15
AST 79 U/L (14-36) H 06/25/24 06:15
ALT 50 U/L (0-35) H 06/25/24 06:15
Alkaline Phosphatase 83 U/L (38-126) 06/25/24 06:15
Most recent labs reviewed note increasing leukocytosis
hgb improved over 2 g/dl
L shift persists
Na 137
Micro Results:
06/22/24 13:05 Body Fluid Culture - Final
Peritoneal Fluid No Growth After 72 Hours
Gram Stain - Final
06/19/24 18:26 Blood Culture - Final
Blood/Venous No Growth - Final Report
06/20/24 11:16 Body Fluid Culture - Final
Peritoneal Fluid Klebsiella pneumoniae
Gram Stain - Final
06/20/24 12:38 Blood Culture - Preliminary
Blood/Venous No Growth in 4 days- Final report to follow
Fluid Cult/not urine Final 06/24/24-1323
Rare Klebsiella pneumoniae
CRITICAL VALUE called to and read back verification by
Christiano/[id number] on 06/23/24 at 0849 by TANISHA. COPY PRINTED to
printer #[id number].
Organism 1 Klebsiella pneumoniae
1. Klebsiella pneumoniae
M.I.C. RX
--------- ---
Amoxicillin/Potas. Clavulanate <=8/4 S
Ampicillin >16 R
Ampicillin/Sulbactam <=4/2 S
Aztreonam <=4 S
Cefazolin <=2 S
Ertapenem <=0.5 S
Ciprofloxacin <=0.25 S
Gentamicin <=2 S
Meropenem <=1 S
Piperacillin/Tazobactam <=8 S
Tetracycline <=4 S
Tobramycin <=2 S
Trimethoprim/Sulfamethoxazole <=2/38 S
06/19/24 CT a/p: Cirrhotic morphology with evidence of portal hypertension and moderate volume ascites. Cholelithiasis. There is gallbladder wall thickening which is likely secondary to chronic liver disease. Colonic diverticulosis. There is
questionable wall thickening along the sigmoid colon and proximal ascending colon which may represent colitis. Complex ventral hernia containing fat and ascites.
06/19/24 CXR: No active cardiopulmonary disease. The tip of the PICC line is at the cavoatrial junction
--- NOTE | 2024-06-25 11:43 | PTCARENOTE ---
Patient reassessed. Opening eyes spontaneously. Does not follow commands. Pupils equal and reactive; +5mm. NSR on tele monitor. Rate in the 90's. BP stable. MAP >65. Pressors remain off. SBT since 716. 04/12 40%. Pulse ox 97%. Lung sounds coarse with
expiratory wheeze. RR 25-29. CRRT maintained. Urine output 0-1 cc/hr. Repeat labs due at 1230. No other changes.
--- NOTE | 2024-06-25 12:42 | CM ---
CM following re: discharge planning.
Discussed in Rounds, reviewed pt's chart, met with pt and pt's family at bedside. Pt's family participated in Rounds meeting.
Per Rounds meeting, pt remains critically ill, minimally responsive, on the ventilator, on pressors with renal failure and worsening liver failure, continue supportive care.
D/C connelly: uncertain at this time and will depend on pt's progress.
CM will follow with discharge plan updates as hospitalization progresses
[2024-06-25 12:43] LABS: Ionized Calcium 1.24 mMOL/L (1.15-1.33)
[2024-06-25 12:54] LABS: Ammonia 20 umol/L (9-30)
[2024-06-25 13:05] LABS: Blood Urea Nitrogen 15 mg/dl (7-17); Calcium 9.4 mg/dl (8.4-10.2); Carbon Dioxide 23 mmol/L (22-30); Chloride 101 mmol/L (98-107); Estimated Creatinine Clearance 71 ml/min; Glucose 92 mg/dl (70-99); Magnesium 2.5 mg/dl (1.6-2.3); Phosphorus 2.9 mg/dl (2.5-4.5); Potassium 4.1 mmol/L (3.5-5.1); Sodium 136 mmol/L (135-145); eGFR > 60.00
--- NOTE | 2024-06-25 13:16 | W.PN.GI.CBS2 ---
Addendum entered and electronically signed by Rashard Stein MD 06/25/24 15:28:
I saw and examined the patient.
The RESOURCES REPRESENTATIVE or PA's note was reviewed and I agree with the note.
Comment:
This patient is a 69-year-old woman who was admitted with SBP with decompensation requiring intubation. She remains off sedation but is slow to wake. Her ammonia is 20.
intubated, sedate
impression:
cirrhosis
SBP/ascites
change in mental status
plan:
if mental status doesn't improve by tomorrow will consider dobhoff with lactulose. last egd doesn't show esophageal varices
continue antibiotics for SBP
trend labs
Addendum entered and electronically signed by ROSITA Fall 06/25/24 15:13:
correction meld 3.0 27.
Addendum entered and electronically signed by ROSITA Fall 06/25/24 14:43:
reviewed with Dr. Vaz and ICU nurse slow improved mentation ammonia 20 - will reassess in AM ability to attempt to wean from vent. If not able to extubate then proceed with DHT for further lactulose and tube feeds in AM vs oral dosing if able
to extubate. Reviewed prior EGD no esophageal varices but gastric varix.
Original Note:
Today's Communication / Plan
-
MELD 3.0 down to 25 cont to trend labs
s/p lactulose enemas now off repeat ammonia now 20--
- Continue antibiotics as per recommended by infectious disease.
- Repeat diagnostic paracentesis 06/22 with improvement
-currently off pressures
-remain NPO
- Renal following with CRRT started 06/22
- Trend labs
- Avoid hepatoxins.
-follow up with Dr. Devora AVILES if not improving vs OP -- GI team has reviewed status with alma
person who would be making medical decisions for her mother is Margaux Sequeira ([phone]).
Assessment / Plan
-
69 year-old female with alcoholic cirrhosis presenting with abdominal pain most suggestive of SBP. Her MELD 1 month ago was 15, 06/20/2024 was 32 and on 06/21/2024 is 39. On admission concern for severe sepsis related to SBP with wBC 6983 on 06/20
and cx + klebsiella. s/p albumin. She was noted with hypotension requiring multiple pressors, LILIBETH with need for CRRT, and vent support. She follows with Dr. Lozoya for Alma prior to admission. ID following for abx, Renal following for LILIBETH,
sales assistant displays/hospitalist following for medical management.
Impression:
SBP w/ sepsis - critically ill on admission requiring multiple pressors
Septic shock
Pancytopenia on admission now with leukocytosis
Hyponatremia
LILIBETH with current CRRT
Alcoholic cirrhosis
resp failure s/p intubation
Portal hypertensive gastropathy
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
Recommendations
MELD 3.0 down to 25 cont to trend labs
s/p lactulose enemas now off repeat ammonia now 20--
- Continue antibiotics as per recommended by infectious disease.
- Repeat diagnostic paracentesis 06/22 with improvement
-currently off pressures
-remain NPO
- Renal following with CRRT started 06/22
- Trend labs
- Avoid hepatoxins.
-follow up with Dr. Lozoya IP if not improving vs OP -- GI team has reviewed status with alma
person who would be making medical decisions for her mother is Margaux Sequeira ([phone]).
Subjective
Subjective
Date of Service: June 25, 2024
NPO , brown stool 06/24
Objective
Data Reviewed
Laboratory Data:
Laboratory Results
06/25/24 06:15
06/25/24 12:31
Laboratory Results
PT 27.7 Sec (11.4-14.6) H 06/25/24 06:15
INR 2.54 06/25/24 06:15
APTT 41.6 Sec (23.4-35.0) H 06/19/24 22:00
Phosphorus 2.9 mg/dl (2.5-4.5) 06/25/24 12:31
Magnesium 2.5 mg/dl (1.6-2.3) H 06/25/24 12:31
Total Bilirubin 9.7 mg/dl (0.2-1.3) H 06/25/24 06:15
AST 79 U/L (14-36) H 06/25/24 06:15
ALT 50 U/L (0-35) H 06/25/24 06:15
Alkaline Phosphatase 83 U/L (38-126) 06/25/24 06:15
Lipase 27 U/L (23-300) 06/19/24 09:42
Vital Signs and I&O:
Vital Signs
Temp Pulse Resp BP Pulse Ox
97.6 F 96 19 122/60 98
06/25/24 11:59 06/25/24 13:00 06/25/24 13:00 06/22/24 13:35 06/25/24 13:00
I&O
06/24/24 06/25/24 06/26/24
06:59 06:59 06:59
Intake Total 1237.6 / 1256.1 684.5 / 706.5 176.6 / 176.6
Output Total 3075 / 3187 3110 / 3207 924 / 924
Balance -1837.4 / -1930.9 -2425.5 / -2500.5 -747.4 / -747.4
Physical Exam
Physical Exam
HEENT: Other (jaundice )
Cardiology: Normal Sinus Rhythm
Pulmonary: Clear
GI: Soft, Non Distended and Non Tender (with some decrease mentation)
Neuro: Other (intubated non verbal some attempt at eye opening)
--- NOTE | 2024-06-25 14:14 | W.PN.HOSP.TC ---
Today's Communication/Plan
-
worsening leukocytosis probably 2/2 hydrocortisone, since bandemia improving, cont merrem pending further ID
CRRT continues with close electrolyte follow up
Coagulopathy improving, but bilirubinemia worsened - MELDNa now 39, GI follows
SBT today as per nurses' aide, but peak pressure remained high arroud 15
Assessment / Plan
Assessment / Plan
69yo F with PMHx of liver cirrhosis, COPD presented with worsening abdominal pain, managed for SBO, developed worsening LILIBETH and coagulopathy with acute hepatic encephalopathy, so had to be intubated on 06/22/24 for protection of airways. Started on
CRRT on 06/23/24 with improvement in pressor requirements and awaiting SBT
A/P:
#septic shock 2/2 SBP in patient with liver cirrhosis
#Acute hepatic encephalopathy
Pressors, sedation and vent support as per nurses' aide
Lactulose enema
S/P paracentesis on 06/20/24 with Klebsiella in fluid cultures, meeting criteria for SBP by WBC count 6983, on repeated paracentesis 3934 on 06/23/24
Repeated paracentesis on 06/22/24
Follow Bcx
ID follows: merrem
vanco and micafungin discontinued
#Acute hepatic failure on chronic liver cirrhosis
#Esophageal varices
GI follows
daily MELD labs
Steroids for sepsis
GI follows - in close communication with transplant hepatology
#Hyponatremia with HAGMA
#LILIBETH, most likely 2/2 shock, cannot r/o HRS
Albumin
Nephrology for dialysis
follow BMP
s/p 3% sodium IV
#Anemia
no over bleeding seen
s/p 1unit PRBC on 06/22/24
follow H&H
PPI
#Thrombocytopenia
#Transaminitis
2/2 liver disease
#Coagulopathy
s/p FFP on 07/02/24 for HD catheter placement
follow daily INR
DVT ppx SCD (2/2 coagulopathy)
LImited DNR - no CPR
I have spent at least 39min reviewing chart, test results, communication with consultants and family and direct patient care
Anticipated Discharge: > 48 hours
Subjective/Interval History
-
Date of Service: June 25, 2024
Objective Data
-
Labs:
Laboratory Results
06/25/24 06/25/24 06/25/24
06:15 12:31 18:30
WBC 22.9 H
Hgb 12.0 D
Hct 33.2 L
Plt Count 58 L D
PT 27.7 H
INR 2.54
Sodium 137 136 Pending
Potassium 4.2 4.1 Pending
Chloride 103 101 Pending
Carbon Dioxide 21 L 23 Pending
BUN 15 15 Pending
Creatinine 0.7 0.8 Pending
Glucose 100 H 92 Pending
Calcium 9.2 9.4 Pending
Total Bilirubin 9.7 H
AST 79 H
ALT 50 H
Alkaline Phosphatase 83
Vital Signs:
Vital Signs
Temp Pulse Resp BP Pulse Ox
97.6 F 96 22 122/60 99
06/25/24 11:59 06/25/24 14:00 06/25/24 14:00 06/22/24 13:35 06/25/24 14:00
I&O
06/24/24 06/25/24 06/26/24
06:59 06:59 06:59
Intake Total 1237.6 / 1256.1 684.5 / 706.5 206.6 / 206.6
Output Total 3075 / 3187 3110 / 3207 1042 / 1042
Balance -1837.4 / -1930.9 -2425.5 / -2500.5 -835.4 / -835.4
Physical Exam
-
General: Intubated
Respiratory: Crackles
Cardiac: Regular Rhythm
GI: Soft, Nontender and Nondistended
Musculoskeletal: Edema, Right Lower Extrem and Edema, Left Lower Extrem
Skin: Jaundice
Neuro: Sedated
--- NOTE | 2024-06-25 16:43 | PTCARENOTE ---
Family at bedside. Assessment unchanged. VSS. CRRT maintained.
[2024-06-25 18:13] VITALS: BP 105/60
[2024-06-25 18:32] LABS: Ionized Calcium 1.16 mMOL/L (1.15-1.33)
[2024-06-25 18:45] LABS: Blood Urea Nitrogen 15 mg/dl (7-17); Calcium 8.7 mg/dl (8.4-10.2); Carbon Dioxide 22 mmol/L (22-30); Chloride 102 mmol/L (98-107); Estimated Creatinine Clearance 71 ml/min; Glucose 85 mg/dl (70-99); Potassium 4.4 mmol/L (3.5-5.1); Sodium 137 mmol/L (135-145); eGFR > 60.00
[2024-06-25 19:00] VITALS: BP 98/51
[2024-06-25 19:46] LABS: Magnesium 2.4 mg/dl (1.6-2.3); Phosphorus 2.9 mg/dl (2.5-4.5)
[2024-06-25 20:00] VITALS: BP 88/50
--- NOTE | 2024-06-25 20:42 | PTCARENOTE ---
Assume care of pt. approx 1900.
Remains on CVVHD, goal -100 hourly.
Vent switched from CPAP wean settings to CMV 15/450/5/40. Pt. tolerating well.
Upon assessment pt. arterial line correlating w/ NIBP, all titration metrics to be used off of arterial data.
MAP averaging 59-60, orders placed for x2 Norepi to allow for adequate fluid removal goals.
Urine OP 0-1 hr, Fluid wave test reveals moderate amount of ascites, will cont. to assess.
Family at bedside, all questions answered, Code status remains Limited DNR.
[2024-06-25] MEDS: LEVOPHED 258 MG IV (21:31)
--- NOTE | 2024-06-25 23:53 | PTCARENOTE ---
Discussed CRRT continuation w/ Nephro compliance consultant (Dr. Alan Pickett) Via TT. Potential to cont. CVVHD another 24 hours and he would like the filter changed, will change filter approx 0200 when .
Pt. remains on 2X Norepi see titration flowsheet for further details.
Pt. conts. w/ non purposeful movements, wanders does not track eyes, pupils =/R 4mm sluggish. Scleral icterus noted, Pt. does not w/d to pain in toes however does have Triple flexion response, normocephalic/Atruamatic.
NSR w/o ectopy, Normotensive on 4mcg Norepi, will work on titrating off as appropriate.
Pt. BP now tolerating ordered fluid removal + additional riders, no new CRRT order parameters.
High peak pressures consistently w/ CMV setting, discussed w/ ICU SIOBHAN to give fentanyl bolus.
[2024-06-25 23:57] LABS: Ionized Calcium 1.16 mMOL/L (1.15-1.33)
[2024-06-26] VITALS (9 sets, daily range): BP systolic 95–124; BP diastolic 46–98; BMI 36.7
[2024-06-26] MEDS: SUBLIMAZE 50 MCG IV (00:10)
[2024-06-26] MEDS: CALCIUM GLUCONATE 100 IV (00:24)
[2024-06-26 00:30] LABS: ALT (SGPT) 48 U/L (0-35); AST (SGOT) 91 U/L (14-36); Alkaline Phosphatase 109 U/L (38-126); Blood Urea Nitrogen 15 mg/dl (7-17); Carbon Dioxide 21 mmol/L (22-30); Chloride 103 mmol/L (98-107); Estimated Creatinine Clearance 63 ml/min; Glucose 82 mg/dl (70-99); Magnesium 2.2 mg/dl (1.6-2.3); Phosphorus 2.8 mg/dl (2.5-4.5); Potassium 4.3 mmol/L (3.5-5.1); Sodium 139 mmol/L (135-145); Total Bilirubin 12.6 mg/dl (0.2-1.3); Total Protein 5.9 g/dl (6.3-8.2); eGFR > 60.00
[2024-06-26] MEDS: FLUSH (NSS) 10 FLUSH IV (00:30)
--- NOTE | 2024-06-26 01:32 | PTCARENOTE ---
CRRT Cartridge changed, CVVHD resumed 0130. Pt. tolerating, Device functioning per order set, safety alarms in place.
--- NOTE | 2024-06-26 01:44 | PTCARENOTE ---
GI rounded, will initiate dobhoff TF/Lactulose in AM.
--- NOTE | 2024-06-26 02:31 | PTCARENOTE ---
Pt. frequently alarming vent high peak pressures, Switched back to SPONT 04/12/40.
[2024-06-26] MEDS: STERILE WATER FOR INJECTION 10 ML IV ×2 (03:23→07:12)
[2024-06-26] MEDS: MERREM 500 MG IV ×2 (03:23→07:11)
[2024-06-26] MEDS: RFP-401 HD Soln (K+ 4 mEq/L) 15000 ML CRRT-IRR (03:28)
--- NOTE | 2024-06-26 04:21 | PTCARENOTE ---
Pt. tolerating PSV setting, hemodynamically stable titrating norepi down, see titration flowsheet.
CVVHD remains on reaching target removal volumes, no alarms, bloodflow rate increased due to venous pressure lagging.
Still unable to follow simple commands, scleral icterus, pupils =/R 4mm, positive triple flexion, no eye tracking noted.
[2024-06-26 05:21] LABS: Ionized Calcium 1.21 mMOL/L (1.15-1.33)
--- NOTE | 2024-06-26 05:27 | PTCARENOTE ---
Pt. becoming hypothermic 95.6, elda hernández set per order goal temp 97.
[2024-06-26 05:33] LABS: INR 2.81; PT 29.5 Sec (11.4-14.6)
[2024-06-26 05:50] LABS: ALT (SGPT) 46 U/L (0-35); AST (SGOT) 98 U/L (14-36); Albumin 2.9 g/dl (3.5-5.0); Alkaline Phosphatase 107 U/L (38-126); Blood Urea Nitrogen 16 mg/dl (7-17); Calcium 9.2 mg/dl (8.4-10.2); Carbon Dioxide 20 mmol/L (22-30); Chloride 103 mmol/L (98-107); Estimated Creatinine Clearance 63 ml/min; Glucose 80 mg/dl (70-99); Magnesium 2.2 mg/dl (1.6-2.3); Phosphorus 2.9 mg/dl (2.5-4.5); Potassium 4.5 mmol/L (3.5-5.1); Sodium 139 mmol/L (135-145); Total Bilirubin 11.9 mg/dl (0.2-1.3); Total Protein 5.8 g/dl (6.3-8.2); eGFR > 60.00
[2024-06-26 05:51] LABS: % Immature Granulocytes 5.6 % (0-0.5); % Lymphocytes 2.9 % (20.5-51.1); % Monocytes 3.6 % (1.7-9.3); % Neutrophils 87.9 % (42.2-75.2); Absolute Immature Granulocytes 2.5 10^3/uL (0-0.05); Absolute Lymphocytes 1.3 10^3/uL (1.2-3.4); Absolute Monocytes 1.6 10^3/uL (0.1-0.6); Absolute Neutrophils 38.4 10^3/uL (1.4-6.5); Hematocrit 35.6 % (37.0-47.0); Hemoglobin 12.5 g/dL (12.0-16.0); Mean Corp Hgb Conc. 35.1 g/dL (33.0-37.0); Mean Corpuscular Hgb 30.9 pg (27.0-31.0); Mean Corpuscular Volume 88.1 fL (81.0-99.0); Nucleated Red Blood Cells % 0.4 %; Platelet Count 41 10^3/uL (130-400); Red Blood Cell Count 4.04 10^6/uL (4.20-5.40); Red Cell Dist. Width 17.3 % (11.5-14.5); White Blood Cell Count 43.7 10^3/uL (4.8-10.8)
[2024-06-26] MEDS: SOLU-CORTEF 50 MG IV ×2 (06:19→18:08)
--- NOTE | 2024-06-26 06:26 | PTCARENOTE ---
Elevated arterial pressures in access line, Blood flow rate decreased.
[2024-06-26] MEDS: NSS (PRESERVATIVE FREE) 10 ML IV (07:11)
[2024-06-26] MEDS: PROTONIX IV 40 MG IV (07:12)
--- NOTE | 2024-06-26 07:32 | W.PN.INTV ---
Today's Communication / Plan
Recommendations
Antibiotics
Paracentesis
Not able to be weaned
Nasogastric feedings
C. difficile
Norepinephrine reinitiated-attempt to wean
Transfuse if needed
Neurology evaluation
Assessment
-
69-year-old woman with history of alcoholic cirrhosis came to the hospital complaining of increased abdominal girth, abdominal pain, poor p.o. intake, found to be hypotensive. Transferred to the intensive care unit due to lack of response to IV
fluids. Started on vasopressors 06/19/2024. Suspicious for spontaneous bacterial peritonitis
Septic shock
Worsening abdominal distention/abdominal pain
Possible spontaneous bacterial peritonitis vs ? Less likely colitis
CT abdomen pelvis 06/19/2024:Cirrhotic morphology with evidence of portal hypertension and moderate volume ascites.
Cholelithiasis. There is gallbladder wall thickening which is likely secondary to chronic liver disease.
Colonic diverticulosis. There is questionable wall thickening along the sigmoid colon and proximal ascending colon which may represent colitis.
Complex ventral hernia containing fat and ascites.
Respiratory failure requiring intubation-acute hypoxemic
Intubated 06/22/2024
Extubated
Hyponatremia acute kidney injury
Anion gap metabolic acidosis-increased lactic acid
Leukocytosis
Anemia
Elevated LFTs
Elevated ammonia
Limited DNR-no chest compressions or shocking
Conditions present prior admission:
Alcoholic cirrhosis since 2017
Portal hypertensive gastropathy
Hypervolemic hyponatremia
Ventral hernia history of asthma only follows up with primary care
Former alcohol use quit in 2017
Plan:
Remains critically ill with a decline now-increased hypotension, back on pressors, white blood cell count significant elevation and no change in mental status
Ventilator settings reviewed-airway pressures adequate
Continue attempts at weaning FiO2 and PEEP
Patient had been tolerating spontaneous breathing trials the last 2 days-not extubated due to significant decline in mental status-now hypotensive, leukocytosis, not extubated will
Follow occasional ABG
Follow airway pressures and avoid barotrauma and volutrauma
Continue nebulizers-significant wheezing on exam though may have 'cardiac' component with renal failure and fluid overload
Chest x-ray 06/22/2024-NAD, ET tube 4 cm above adan
Chest x-ray 06/24/2024-low lung volumes, no pneumothorax, no pleural effusions
Chest x-ray 06/26/2024-decrease in mild airspace opacification suggesting atelectasis, mild elevation right hemidiaphragm
Follow chest x-rays
VAP prevention protocol continues
Cultures reviewed
Broad-spectrum empiric antibiotics to cover spontaneous bacterial peritonitis
Infectious disease following-correspondence reviewed-continue meropenem-May de-escalate tomorrow
Norepinephrine and vasopressin and Arash-Synephrine as needed-consider Giapreza
Trend lactate
Hydrocortisone 50 mg IV every 6 hours-random cortisol was 60, however, surviving sepsis guideline revision recommendations suggest consideration and fluids/pressor unresponsive patient's-begin to taper
Patient had upper extremity edema-left upper extremity ultrasound 06/24/2024-no DVT
Monitor renal function
Nephrology following-correspondence reviewed-reviewed with Dr. Pickett-continue for an additional 24 hours
Replace electrolytes
Continuous renal replacement therapy initiated 06/22/2024-discontinued on 06/26/2024
Status post 2 units FFP prior to dialysis catheter placement for elevated INR
Echocardiogram 06/21/2024-EF 55-60%, aortic sclerosis, PA systolic 38
Gastroenterology following-correspondence reviewed
Last MELD today 39
Transplant photographer assistant at [facility] updated by gastroenterology
Consider enteral feedings in the next couple days-will leave up to GI
Status post paracentesis 06/20/2024-WBC 6983, total protein less than 2, albumin less than 1, LDH 477, amylase 191
Repeat paracentesis 06/22/2024-WBC 3934, total protein 3.3, albumin 1.5, LDH 881, amylase 457, cultures pending
Follow hemoglobin-currently 12.5
Transfuse as needed
Monitor thrombocytopenia-currently 41
Marked increase in WBCs with new hypotension and norepinephrine requirements-recommend IR diagnostic and therapeutic paracentesis
Consider C. difficile as well with liquid diarrhea and marked rise in WBCs-reviewed with GI personally
Repeat ammonia 20
Lactulose as needed
Antibiotics-continue per infectious disease
Albumin
Gastroenterology contacted tertiary center-no need for transfer at this time-consider transfer for consideration towards transplant
Nutrition per gastroenterology
Lactulose NH
Monitor neurologic status
CT head without obvious acute infarct
Neurology evaluation with ongoing mental status decline-off sedation
DVT prophylaxis-subcu heparin every 12-INR elevated-currently 2.8-hold heparin
GI prophylaxis-on pantoprazole
Nutrition-avoid nasogastric tube with history of varices for now
Dr. Vaz reviewed with multiple family members including and 2 daughters at the bedside 06/22/2024-overall poor prognosis-they understand-POA now wants limited DNR-no chest compressions or shocking
Dr. Vaz reviewed with daughter and at the bedside-06/21/2024 updated on current clinical situation, critical nature of her multi organ failure, morbidity and high mortality rate unfortunately and discussed CODE STATUS as well
Dr. Vaz reviewed with daughters and at the bedside 06/22/2024-current clinical situation, mild improvement, potential Juanjose ICU course, ongoing need for renal replacement therapy and potential trial for spontaneous breathing trial
Dr. Vaz reviewed daughters as well as at the bedside 06/24/2024-including current clinical situation, ongoing need for CRRT, pressors, and attempts at spontaneous breathing trial
Dr. Vaz reviewed with daughter at the bedside 06/25/2024-current clinical condition, spontaneous breathing trial, decreased mentation, overall slight improvement
Critical care statement: A total of 44 minutes of critical care time was provided for this patient today. This includes management of unstable vital signs, evaluation of the patient at bedside, reviewing the patient's pertinent medical records
including radiographs, management of respiratory failure, ventilator management, following ABGs, pressor management, sepsis management, microbiology, laboratory evaluations, and discussion with primary team, consultants, pharmacy, nutrition,
physical therapy, case management, charge nurse, critical care nursing, and respiratory therapy.
Subjective Dataa
Subjective Data
Date of Service:
Date of Service: June 26, 2024
Chief Complaint: Cardiac Surgeon Follow Up (Septic shock) and Pulmonary Follow Up
Subjective:
Patient has declined, back on norepinephrine, mental status still declined, white blood cell count increased, unable to communicate with
Review of Systems
General: Other (Per HPI)
Objective Data
Data Reviewed
Vital Signs / I&O / Oxygen:
Vital Signs
Temp Pulse Resp BP Pulse Ox
95.6 F L 98 27 115/98 96
06/26/24 07:00 06/26/24 07:00 06/26/24 07:00 06/26/24 00:00 06/26/24 07:00
Intake and Output
06/25/24 06/26/24 06/27/24
06:59 06:59 06:59
Intake Total 684.5 / 706.5 573.6 / 631.8 58.2 / 58.2
Output Total 3110 / 3207 2694 / 2789 95 / 95
Balance -2425.5 / -2500.5 -2120.4 / -2157.2 -36.8 / -36.8
SaO2 [CPAP/PSV] 97
SaO2 [A/C] 96
SaO2 96
Nasal Cannula flow liters per 2
minute
Physical Exam
General: Respiratory Distress (Mild at rest) and Comfortable
HEENT: Normocephalic, Anicteric and Moist Mucous Membranes
Cardiovascular: Regular Rhythm
Respiratory: Wheeze (Diffuse expiratory), Crackles (Basilar), Rhonchi (n), Accessory Resp Muscle Use (Mild), Stridor (n), ET Tube and Other (Decreased breath sounds both bases)
GI: Distended (Mildly tender, ascites.) and Other ( Ventral hernia not tender not erythematous)
Neurology: Unresponsive, Other and Other
Skin: Warm, Good Color, Cyanosis (n) and Rash
Labs/Micro/Reports
Lab Data
06/26/24 05:09
06/26/24 05:09
Laboratory Results
06/26/24
05:09
PT 29.5 H
INR 2.81
Microbiology
06/20/24 12:38 Blood/Venous Blood Culture - Final
No Growth - Final Report
06/22/24 13:05 Peritoneal Fluid Body Fluid Culture - Final
No Growth After 72 Hours
06/22/24 13:05 Peritoneal Fluid Gram Stain - Final
06/19/24 18:26 Blood/Venous Blood Culture - Final
No Growth - Final Report
06/20/24 11:16 Peritoneal Fluid Body Fluid Culture - Final
Klebsiella pneumoniae
06/20/24 11:16 Peritoneal Fluid Gram Stain - Final
--- NOTE | 2024-06-26 07:40 | W.PN.UPDATE ---
Update Note
Progress Note Update
CRRT note
u/f ~100cc/hr
u/f total 2.6kg
sbp 90 on pressor support
RR 1.5liters
4K bath
--- NOTE | 2024-06-26 07:43 | W.PN.NEPH.PH ---
Today's Communication / Plan
-
Observe for CRRT
Possible reinitiation of CRRT or dialysis tomorrow
Maintain MAP at 65 or greater to augment renal perfusion pressure
Assessment/Plan
-
Assessment
Alcoholic cirrhosis
Hypotension
Abdominal pain
Sepsis
Lactic acidosis
Metabolic acidosis
LILIBETH
Hyponatremia
Plan
CRRT clotted
Will hold off CRRT today as electrolytes balance and volume status significantly improved
We will reassess for CRRT tomorrow or conventional dialysis based on hemodynamic stability
Patient currently remains intubated and requires pressor support
Patient has remained an uric
Keep mean arterial pressure greater than 65
Antibiotics per infectious disease
can consider switch to IHD once off pressors
Unfortunately white cell count rising to greater then 40 and patient now hypothermic
Patient remains critically ill with an uric renal failure vent dependent respiratory failure and pressor dependent hypotension
Critical care time spent 31 minutes
-
-
Date of Service: June 26, 2024
CC / HPI / ROS
-
Chief Complaint:
Acute kidney injury
History of Present Illness:
Critically ill in ICU and pressor support
on pressors for hypotension
CRRT clotted
Hyponatremia improved
metabolic acidosis resolved
On ventilator, sedated
White cell count rise
Review of Systems:
Remains anuric via lawler
Sedated
Hypothermic
Labs
-
Labs:
WBC 43.7 10^3/uL (4.8-10.8) H* 06/26/24 05:09
RBC 4.04 10^6/uL (4.20-5.40) L 06/26/24 05:09
Hgb 12.5 g/dL (12.0-16.0) 06/26/24 05:09
Hct 35.6 % (37.0-47.0) L 06/26/24 05:09
Plt Count 41 10^3/uL (130-400) L D 06/26/24 05:09
Sodium 139 mmol/L (135-145) 06/26/24 05:09
Potassium 4.5 mmol/L (3.5-5.1) 06/26/24 05:09
Chloride 103 mmol/L (98-107) 06/26/24 05:09
Carbon Dioxide 20 mmol/L (22-30) L 06/26/24 05:09
BUN 16 mg/dl (7-17) 06/26/24 05:09
Creatinine 0.9 mg/dL (0.6-1.0) 06/26/24 05:09
eGFR > 60.00 06/26/24 05:09
Glucose 80 mg/dl (70-99) 06/26/24 05:09
Calcium 9.2 mg/dl (8.4-10.2) 06/26/24 05:09
Phosphorus 2.9 mg/dl (2.5-4.5) 06/26/24 05:09
Albumin 2.9 g/dl (3.5-5.0) L 06/26/24 05:09
Physical Exam
-
Vital Signs:
Vital Signs
Temp Pulse Resp BP Pulse Ox
95.6 F L 98 27 115/98 96
06/26/24 07:00 06/26/24 07:00 06/26/24 07:00 06/26/24 00:00 06/26/24 07:00
Cardiovascular:: Regular rate and rhythm
Respiratory:: Bilateral: Coarse
Lung Excursion:: Normal
Abdomen:: Nontender and Soft
Bowel Sounds:: Normal
Extremity Edema:: +1: Bilateral:
Lawler Catheter: Yes
Other Findings::
gen:intubated and sedated
[2024-06-26] MEDS: DUONEB 3 ML INH ×4 (08:07→20:21)
--- NOTE | 2024-06-26 09:29 | W.PN.ID1 ---
Addendum entered and electronically signed by Lala Akers MD 06/26/24 11:44:
correction - patient with 0 urine output post CRRT, Cr not reliable, agree with dose adjustment to 500 mg iv q24 hours
Original Note:
Date of Service
Date of Service: June 26, 2024
Today's Communication
- continue meropenem - survival advantage described in SBP - prognosis still very guarded with low probability of survival
- add empiric micafungin
- paracentesis fluid to be sent in aerobic blood culture bottle
- colonized with C diff without active infection - add oral vancomycin ppx
prognosis remains guarded
Assessment / Plan
# Spontaneous bacterial peritonitis
# Decompensated ETOH cirrhosis, MELD 39
# Septic shock weaned off 2 pressors, now on 1 pressor,
# multisytem organ failure
# LILIBETH - on CRRT
# Hepatic Encephalopathy
- 06/20 s/p paracentesis 2.5 L ascites: 6,983 wbc, 79% polys
06/20 Ascites Cx K pneumoniae
-06/22 ascites: 3934 wbc, 97% polys
06/22 Ascites cx neg to date
- blood cx x2 finalized negative
- shock worsening, CXR no new infiltrates and improved atelectasis - minimal fluid in the ETT canister, lines functional, with expected diarrhea on lactulose, carrier for C diff without active infection, no new wounds; agree with repeat paracentesis
- Continue meropenem (d7), now off of CRRT - dose remain appropriate
- continue meropenem - survival advantage described in SBP - prognosis still very guarded with low probability of survival
- will add empiric micafungin
- for C diff colonization add oral vanc bid
- Follow vitals/clinically
- Per GI, transfer to [facility] when stable.
-Prognosis remains guarded; high mortality risk
Chief Complaint
-: Leukocytosis and Clinical Sepsis
Subjective / Review of Systems
persistent hypothermia - placed on elda hugger
increased pressors doses
now off of CRRT as clotted
Vital Signs / Physical Exam
Vital Signs
Vital Signs
Temp Pulse Resp BP Pulse Ox
96.7 F L 101 26 97/55 97
06/26/24 09:00 06/26/24 09:00 06/26/24 09:00 06/26/24 08:18 06/26/24 09:00
Physical Exam
Constitutional: Acutely Ill and Chronically Ill
Cardiovascular: Regular Rate and S1/S2; Negative Murmur or Rub
Pulmonary: Clear and Symmetric; Negative Wheezes or Rales
Gastrointestinal: Soft, Non Tender, Distended and Normal Bowel Sounds
Skin: Warm and Dry; Negative Rash or Jaundice
Neurological: Negative Awake
Lines: Other (lines nontender, no erythema)
Objective Data
Lab Data
Lab Results
06/26/24 05:09
06/26/24 05:09
PT 29.5 Sec (11.4-14.6) H 06/26/24 05:09
INR 2.81 06/26/24 05:09
APTT 41.6 Sec (23.4-35.0) H 06/19/24 22:00
Estimated Creat Clear 63 ml/min 06/26/24 05:09
Lactic Acid 3.0 mmol/L (0.7-2.0) H 06/21/24 09:48
Total Bilirubin 11.9 mg/dl (0.2-1.3) H 06/26/24 05:09
AST 98 U/L (14-36) H 06/26/24 05:09
ALT 46 U/L (0-35) H 06/26/24 05:09
Alkaline Phosphatase 107 U/L (38-126) 06/26/24 05:09
Most recent labs reviewed.
Micro Results:
06/20/24 12:38 Blood Culture - Final
Blood/Venous No Growth - Final Report
06/22/24 13:05 Body Fluid Culture - Final
Peritoneal Fluid No Growth After 72 Hours
Gram Stain - Final
06/19/24 18:26 Blood Culture - Final
Blood/Venous No Growth - Final Report
06/20/24 11:16 Body Fluid Culture - Final
Peritoneal Fluid Klebsiella pneumoniae
Gram Stain - Final
06/19/24 CT a/p: Cirrhotic morphology with evidence of portal hypertension and moderate volume ascites. Cholelithiasis. There is gallbladder wall thickening which is likely secondary to chronic liver disease. Colonic diverticulosis. There is
questionable wall thickening along the sigmoid colon and proximal ascending colon which may represent colitis. Complex ventral hernia containing fat and ascites.
06/19/24 CXR: No active cardiopulmonary disease. The tip of the PICC line is at the cavoatrial junction
Care Review
Plan reviewed with: Physician (Dr Keller - IR - use blood culture bottle for sbp)
--- NOTE | 2024-06-26 09:45 | PTCARENOTE ---
0700 - Assumed care of patient. Patient opening eyes spontaneously. Does not make eye contact. Pupils +4mm, sluggish. Sclera edema present. Corneal and gag reflexes intact. No purposeful movement. NST/ST on tele monitor. Rate in the 90-100's. +2
anasarca. Remains on ventilator. Settings: 8/5 40%. Pulse ox 97%. Small amount of secretions suctioned from ett. Lung sounds coarse/rhonchi throughout. Hypo BS. FMS in place for liquid stools. Small amount of output. Cdiff ordered by GI. CRRT
stopped at 0740. Block Out Machine Operator at bedside. Advised RN not to restart. Leger in place. Anuric. Rec'd patient on 2 mcg/min of Levophed infusing through left dual lumen PICC. Pressor requirements increased in order to maintain MAP >65. Right radial
sidney leveled and zeroed. Patient hypothermic. Bairhugger in place until goal temp reached at 0930.
--- NOTE | 2024-06-26 09:50 | W.PN.GI.CBS2 ---
Today's Communication / Plan
-
tap to r/o sbp
Assessment / Plan
-
69 year-old female with alcoholic cirrhosis presenting with abdominal pain most suggestive of SBP. Her MELD 1 month ago was 15, 06/20/2024 was 32 and on 06/21/2024 is 39. On admission concern for severe sepsis related to SBP with wBC 6983 on 06/20
and cx + klebsiella. s/p albumin. She was noted with hypotension requiring multiple pressors, LILIBETH with need for CRRT, and vent support. She follows with Dr. Lozoya for Reagan prior to admission. ID following for abx, Renal following for LILIBETH,
experience designer/hospitalist following for medical management.
Impression:
SBP w/ sepsis - critically ill on admission requiring multiple pressors
Septic shock
Pancytopenia on admission now with leukocytosis
Hyponatremia
LILIBETH with current CRRT
Alcoholic cirrhosis
resp failure s/p intubation
Portal hypertensive gastropathy
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
Recommendations
- jump in wbc from yesterday, in light of SBP hx would retap
- Trend labs including wbc
- Avoid hepatoxins.
- bilirubin has held stable
person who would be making medical decisions for her mother is Margaux Sequeira ([phone]).
Subjective
Subjective
Date of Service: June 26, 2024
Pt still not responding, sedation has been off. WBC jumped up from yesterday
Objective
Data Reviewed
Laboratory Data:
Laboratory Results
06/26/24 05:09
06/26/24 05:09
Laboratory Results
PT 29.5 Sec (11.4-14.6) H 06/26/24 05:09
INR 2.81 06/26/24 05:09
APTT 41.6 Sec (23.4-35.0) H 06/19/24 22:00
Phosphorus 2.9 mg/dl (2.5-4.5) 06/26/24 05:09
Magnesium 2.2 mg/dl (1.6-2.3) 06/26/24 05:09
Total Bilirubin 11.9 mg/dl (0.2-1.3) H 06/26/24 05:09
AST 98 U/L (14-36) H 06/26/24 05:09
ALT 46 U/L (0-35) H 06/26/24 05:09
Alkaline Phosphatase 107 U/L (38-126) 06/26/24 05:09
Lipase 27 U/L (23-300) 06/19/24 09:42
Vital Signs and I&O:
Vital Signs
Temp Pulse Resp BP Pulse Ox
97.1 F 101 26 97/55 97
06/26/24 09:30 06/26/24 09:00 06/26/24 09:00 06/26/24 08:18 06/26/24 09:00
I&O
06/25/24 06/26/24 06/27/24
06:59 06:59 06:59
Intake Total 684.5 / 706.5 573.6 / 631.8 89.5 / 89.5
Output Total 3110 / 3207 2694 / 2789 95 / 95
Balance -2425.5 / -2500.5 -2120.4 / -2157.2 -5.5 / -5.5
Physical Exam
Physical Exam
HEENT: Anicteric (icteric)
Cardiology: S1 and S2
GI: Distended (not tense)
Neuro: Other (intubated, not responsive)
--- NOTE | 2024-06-26 10:00 | PTCARENOTE ---
0950 - DHT placed in left nare @ 60cm. CXR confirmation.
[2024-06-26] MEDS: LEVOPHED 258 MG IV ×3 (11:24→21:02)
[2024-06-26] MEDS: FIRVANQ 125 MG TUBE ×2 (11:48→20:48)
--- NOTE | 2024-06-26 12:10 | PTCARENOTE ---
1200 - patient reassessed. Neuro status unchanged. HR increased to the 100-110's. ST. Levophed up to 26 mcg/min. Neurologist at bedside. Family discussing options and requesting to speak with Mining Teacher.
--- NOTE | 2024-06-26 12:20 | W.PN.HOSP.TC ---
Today's Communication/Plan
-
Noted new orders by ID
DIscussed with family in details: again in view of pressor requirements, leukocytosis, worsening bilirubin and INR - extremely poor prognosis
Assessment / Plan
Assessment / Plan
69yo F with PMHx of liver cirrhosis, COPD presented with worsening abdominal pain, managed for SBO, developed worsening LILIBETH and coagulopathy with acute hepatic encephalopathy, so had to be intubated on 06/22/24 for protection of airways. Started on
CRRT on 06/23/24 with initial improvement in pressor requirements however developed leukemoid reaction with increase in Levophed dose on 06/26/24 so Micafungin added to Merrem and started on oral Vanco 2/2 C.diff carrier status.
A/P:
#septic shock 2/2 SBP in patient with liver cirrhosis
#Acute hepatic encephalopathy
Pressors, sedation and vent support as per novelty worker
Lactulose
S/P paracentesis on 06/20/24 with Klebsiella in fluid cultures, meeting criteria for SBP by WBC count 6983, on repeated paracentesis 3934 on 06/23/24
Repeated paracentesis on 06/22/24
Follow Bcx
ID follows: merrem. Micafungin re-added on 06/26/24 with new leukemoid reaction
vanco discontinued
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
started empiric oral Vanco on 06/26/24
#Acute hepatic failure on chronic liver cirrhosis
#Esophageal varices
GI follows
daily MELD labs
Steroids for sepsis
GI follows - in close communication with transplant hepatology . Since SBP and shock - as per my understanding from conversation with GI - not a candidate for urgent transplantation
#Hyponatremia with HAGMA
#LILIBETH, most likely 2/2 shock, cannot r/o HRS
Albumin
Nephrology for dialysis
follow BMP
s/p 3% sodium IV
CRRT initiated on 06/23/24 and stopped on 06/26/24 to monitor kidney function
#Anemia
no over bleeding seen
s/p 1unit PRBC on 06/22/24
follow H&H
PPI
#Thrombocytopenia
#Transaminitis
2/2 liver disease
#Coagulopathy
s/p FFP on 07/02/24 for HD catheter placement
follow daily INR
DVT ppx SCD (2/2 coagulopathy)
Limited DNR - no CPR
I have spent at least 39min reviewing chart, test results, communication with consultants and family and direct patient care
Anticipated Discharge: > 48 hours
Subjective/Interval History
-
Date of Service: June 26, 2024
Objective Data
-
Labs:
Laboratory Results
06/25/24 06/26/24
23:46 05:09
WBC 43.7 H*
Hgb 12.5
Hct 35.6 L
Plt Count 41 L D
PT 29.5 H
INR 2.81
Sodium 139 139
Potassium 4.3 4.5
Chloride 103 103
Carbon Dioxide 21 L 20 L
BUN 15 16
Creatinine 0.9 0.9
Glucose 82 80
Calcium 9.0 9.2
Total Bilirubin 12.6 H 11.9 H
AST 91 H 98 H
ALT 48 H 46 H
Alkaline Phosphatase 109 107
Vital Signs:
Vital Signs
Temp Pulse Resp BP Pulse Ox
97.8 F 110 29 95/46 97
06/26/24 11:00 06/26/24 12:15 06/26/24 12:15 06/26/24 12:00 06/26/24 12:15
I&O
06/25/24 06/26/24 06/27/24
06:59 06:59 06:59
Intake Total 684.5 / 706.5 573.6 / 631.8 225.3 / 225.3
Output Total 3110 / 3207 8674 / 2789 105 / 105
Balance -2425.5 / -2500.5 -2120.4 / -2157.2 120.3 / 120.3
Review of Systems
-
Unable to obtain full review of systems at this time due to: Patient Intubation
Physical Exam
-
General: Intubated
Rectal: Brown and Other (liquid)
Skin: Jaundice
Neuro: Awake
Psych: Calm
[2024-06-26] MEDS: PITRESSIN 100 IV ×2 (12:37→22:00)
--- NOTE | 2024-06-26 12:48 | W.PN.UPDATE ---
Update Note
Progress Note Update
Reevaluated patient at the bedside-now needs vasopressin
Mental status is not improved
Neurology evaluation at the bedside-very poor chance for recovery
I have placed a call into neurology whether additional testing is needed or his bedside evaluation enough is family is requesting prognosis in regards to chance for meaningful recovery neurologically
If there is minimal chance for meaningful recovery from a neurologic perspective they are ready to withdraw/comfort care-earliest would be Friday-additional family members need to visit
Updated critical care nursing
--- NOTE | 2024-06-26 13:00 | PTCARENOTE ---
1240 - Vasopressin initiated. Trials Manager at bedside. RN advised to increase Vaso to 0.03. Discussion about plan and goals of care between Trials Manager and patient's family. Patient's family expressing they would like to continue care as is for now.
If no potential of meaningful neurological recovery, they would like to consider withdrawal of care in the next couple days.
[2024-06-26] MEDS: MYCAMINE 105 MG IV (13:42)
--- NOTE | 2024-06-26 13:51 | PTCARENOTE ---
Addendum entered by Niya Correa RN 06/26/24 14:23:
1.5 L removed.
Original Note:
1350 - IRAD at bedside for paracentesis.
--- NOTE | 2024-06-26 14:29 | CHAP ---
Visited Nieves at 11:30 - she was sleeping, non-responsive. Three family members were present; they shared thoughts and feelings, tears. We prayed together, offering Sabianist prayers and asking blessings for Nieves and her family. Emotional
and spiritual support provided.
--- NOTE | 2024-06-26 14:38 | PTCARENOTE ---
Levophed currently infusing @ 30 mcg/min; Vaso infusing @ 0.03. MAP>65.
[2024-06-26 14:41] LABS: Body Fluid Mononuclear 7.8 %; Body Fluid Polymorphonuclear 92.2 %; Body Fluid WBC 13458 /CUMM
[2024-06-26 14:48] LABS: Body Fluid Second Tech DW
[2024-06-26 14:51] LABS: Body Fluid Protein 3.1 g/dl
--- NOTE | 2024-06-26 15:17 | CON.NEURO4 ---
Consultation - Neurology 4
-
CONSULTING PHYSICIAN: Aric Soliman MD(Neurology)
REFERRING PHYSICIAN: Hospitalist
DICTATED BY: Aric Soliman MD
DATE/TIME OF REQUEST: 06/26/2024
DATE/TIME OF CONSULTATION: 06/26/2024
Reason for Consultation: Unresponsiveness
History of Present Illness:
This is a 69 year old right) handed female) who was admitted to the hospital with (chief complaint) of abdominal pain with ascites. She gives a h/o asthma, HTN, GERD alcoholism with cirrhosis and ascites who was admitted with worsening abdominal
pain over 2-3 weeks. During treatment in ED, patient noted to become hypotensive, with minimal improvement after IV fluid bolus administration. After discussion with admitting hospitalist, patient was placed on Levophed infusion.
Patient was sedated following Dilaudid given in the emergency department.. Patient has been complaining of swelling and heaviness in her legs secondary to lower extremity edema. There was also associated abdominal swelling with diffuse abdominal
pain for the past few months. She was seen at the ED about a month ago, and was seen by her GI and Liver specialists. In the interim she has been started on Lactulose for confusion secondary to hyperammonemia assoc with hepatic encephalopathy.
She was also prescribed Lasix for swelling of her abdomen and feet.
Family has noted improvement in the lower extremity edema with the Lasix. Patient noted significant worsening of her abdominal pain to the point that she was unable to ambulate on the day of admission, and family bought her to the emergency
department for evaluation.
Family has noted decreased appetite, and notes she appears short of breath on occasion. There are no reports of fevers, sweats or chills.
She was placed on IV antibiotics. on Zosyn. Overnight she decompensated requiring 3 pressors, Renal function deteriorated and developed LILIBETH, hypothermic, leukocytosis, increasing LFT's.
Mental status improved briefly. . GI replaced Zosyn with meropenem and daptomycin. For paracentesis today. She was then started on IV Vancomycin
patient intubated overnight on Jun 21
Hyponatremia persists at 126, after 3% Saline and IV Lasix
metabolic acidosis exacerbating
anemia worsening to 6.7 and underwent transfusion
Discussed with daughter who wishes to proceed forth with CRRT after dialysis catheter placement
Continuous renal replacement therapy initiated 06/22/2024-discontinued on 06/26/2024
Status post 2 units FFP prior to dialysis catheter placement for elevated INR
Despite therapy she remains critically ill with a declining BP, restarted pressors,On Norepinephrine and vasopressin and Arash-Synephrine as needed
white blood cell count showed significant elevation Started meropenem--with no improvement in mental status
Hydrocortisone 50 mg IV every 6 hours-random cortisol was 60,
In view of increasing pressor requirements, leukocytosis, worsening bilirubin and rising INR - pat unlikely to make a meaningful recovery and neurology consult placed
Past Medical History: As above
Surgical History:
Family History: [place]
Social History: Lives at home with her children
Allergies: See addendum
Home Medications: See Addendum
Review of Symptoms: Per the HPI. I am unable to obtain a complete review of systems�because of patient's inability to provide history.'
Vital Signs:
The patient has a Vital Signs
Temp Pulse Resp BP Pulse Ox
37.2 C 108 28 97/47 95
06/26/24 15:00 06/26/24 15:00 06/26/24 15:00 06/26/24 14:19 06/26/24 15:00
Physical Exam:
The patient is afebrile, heart sounds S1 and S2 are (regular, and chest is coarse to auscultation bilaterally. Pat is intubated on Ventilator
Neurologic Examination: The patient is comatose. No response to external stimuli.
She is unable to follow commands. Speech is absent as pat comatose and intubated
On cranial nerve assessment, pupils are 6 mm bilateral, round and sluggish reactive to light. Visual welch: Does not appreciate visual threats.
Extraocular movements are impaired. Facial sensations cannot be tested. Face appears symmetrical, there is no facial asymmetry.
Hearing unable to test. Tongue palate and uvula cannot be visualized. Sternocleidomastoid cannot be assessed.
Motor strengths no movements in the extremities on painful stimuli. There is no involuntary movement noted. Deep tendon reflexes are absent in upper and lower extremities and Babinski is absent bilaterally. No response to pain, touch, or tuning
fork vibration in all extremities.
Coordination Rombergs and Gait cannot be tested as pat is comatose intubated and bedbound.
Lab Results: See addendum
Neuro Imaging: CT head: Atrophy. Normal ventricle size. Minimal small vessel disease
Impression: Ms. CIRA MIJARES is a 69 year old F who has presented to the hospital with (symptoms/chief complaint) of encephalopathy secondary to bacterial peritonitis
Recommendations:
1. ICU management
2. Ventilator management
3. Supportive care
Given the ongoing metabolic derangements pat unlikely to make a meaningful recovery. Should the current course continue pat will need intensive medical care continuous nursing support PEG placement indefinitely
Discussed patient care with: ICU attending, nursing and pat family
Allergies
-
Allergies
Allergy/AdvReac Type Severity Reaction Status Date / Time
codeine Allergy Itching Verified 06/19/24 09:40
latex Allergy Itching Verified 06/19/24 09:40
morphine Allergy Itching Verified 06/19/24 09:40
Vital Signs and Labs
-
Vital Signs and Labs:
Vital Signs
Temp Pulse Resp BP Pulse Ox
37.2 C 108 28 97/47 95
06/26/24 15:00 06/26/24 15:00 06/26/24 15:00 06/26/24 14:19 06/26/24 15:00
Lab Results
06/26/24 05:09
06/26/24 05:09
PT 29.5 Sec (11.4-14.6) H 06/26/24 05:09
INR 2.81 06/26/24 05:09
APTT 41.6 Sec (23.4-35.0) H 06/19/24 22:00
Sodium 139 mmol/L (135-145) 06/26/24 05:09
Potassium 4.5 mmol/L (3.5-5.1) 06/26/24 05:09
BUN 16 mg/dl (7-17) 06/26/24 05:09
Glucose 80 mg/dl (70-99) 06/26/24 05:09
Calcium 9.2 mg/dl (8.4-10.2) 06/26/24 05:09
Phosphorus 2.9 mg/dl (2.5-4.5) 06/26/24 05:09
Medications
-
Active Medications
Generic Name Dose Route Start Last Admin
Trade Name Freq PRN Reason Stop Dose Admin
Albuterol/Ipratropium 3 ml 06/21/24 12:00 06/26/24 11:20
Ipratropium 0.5/Albuterol 3 Mg (3 Ml Ampul) INH 3 ml
R QID ZULY Administration
Protocol
Fentanyl Citrate 50 mcg 06/22/24 04:05 06/26/24 00:10
Fentanyl (50 Mcg/Ml) 100 Mcg/2 Ml Ampul IV 07/05/24 21:07 50 mcg
[id number] PRN Administration
see protocol
Protocol
Hydrocortisone Sodium Succinate 50 mg 06/25/24 18:00 06/26/24 06:19
Hydrocortisone Sodium Succinate 100 Mg/2 Ml Vial IV 07/23/24 17:59 50 mg
Q12H ZULY Administration
Potassium Chloride 40 meq in 100 mls @ 50 mls/hr 06/22/24 15:00
Kcl IV 07/20/24 14:59
Q4HPRN PRN
K+ level < 3.6 mEq/L
Magnesium Sulfate 4 gram in 100 mls @ 50 mls/hr 06/22/24 15:00 06/25/24 01:18
Magnesium Sulfate IV 07/20/24 14:59 100 mls
Q4HPRN PRN Administration
Mag level < 2 mg/dL
Potassium Phosphate 40 meq/ 259.0909 mls @ 64.773 mls/hr 06/22/24 15:00
Sodium Chloride IV 07/20/24 14:59
PRN PRN
Phos < 2.7 and K+ < 3.6
Sodium Phosphate 40 meq/ 260 mls @ 65 mls/hr 06/22/24 15:00 06/24/24 19:40
Dextrose IV 07/20/24 14:59 260 mls
PRN PRN Administration
Phosphorus < 2.7 mg/dL
Calcium Gluconate 2 gram in 100 mls @ 100 mls/hr 06/23/24 14:31 06/26/24 00:24
Calcium Gluconate IV 07/21/24 14:30 100 mls
Q4HPRN PRN Administration
Ionized Calcium < 1.2 mmol/L
Norepinephrine Bitartrate 8 mg 258 mls @ 0 mls/hr 06/25/24 20:15 06/26/24 11:24
/ Dextrose IV 258 mls
PER PROTOCOL ZULY Administration
Protocol
Per Protocol
Vasopressin 20 units in 100 mls @ 0 mls/hr 06/26/24 10:30 06/26/24 12:37
Pitressin IV 100 mls
PER PROTOCOL ZULY Administration
Protocol
Per Protocol
Micafungin Sodium 100 mg/ 105 mls @ 105 mls/hr 06/26/24 12:00 06/26/24 13:42
Dextrose IV 07/06/24 11:59 105 mls
Q24H ZULY Administration
Lactulose 10 grams 06/26/24 11:39
Lactulose Solution (20 Grams/30 Ml) 30 Ml Cup TUBE 07/18/24 07:59
DAILY ZULY
Meropenem 500 mg 06/27/24 08:00
Meropenem 500 Mg/10 Ml Vial IV
Q24H ZULY
Ondansetron HCl 4 mg 06/19/24 17:14 06/20/24 12:47
Ondansetron 4 Mg/2 Ml Vial IV 07/17/24 17:13 4 mg
Q6HPRN PRN Administration
NAUSEA/VOMITING
Pantoprazole Sodium 40 mg 06/21/24 12:00 06/26/24 07:12
Protonix 40 Mg Iv Push IV 07/19/24 11:59 40 mg
DAILY ZULY Administration
Polyethylene Glycol 17 grams 06/23/24 08:00 06/23/24 07:35
Polyethylene Glycol Powder 17 Grams Packet TUBE 07/21/24 07:59 Not Given
DAILY ZULY
Sodium Chloride 0 flush 06/19/24 18:00
Sodium Chloride 0.9% (Flush) Syringe IV 07/17/24 17:59
PER PROTOCOL ZULY
Sodium Chloride 10 ml 06/21/24 12:00 06/26/24 07:11
Sodium Chloride 0.9% (Preservative Free) 10 Ml Vial IV 07/19/24 11:59 10 ml
DAILY ZULY Administration
Sodium Chloride 0 flush 06/22/24 08:29 06/26/24 00:30
Sodium Chloride 0.9% (Flush) Syringe IV 07/20/24 08:28 10 flush
PRN PRN Administration
disconnect from dialysis
Spironolactone 50 mg 06/20/24 08:00
Spironolactone 50 Mg Tablet PO 07/18/24 07:59
DAILY ZULY
Sterile Water 10 ml 06/27/24 08:00
Sterile Water For Injection 10 Ml Vial IV 07/25/24 07:59
Q24H ZULY
Vancomycin HCl 125 mg 06/26/24 10:45 06/26/24 11:48
Vancomycin Oral Solution 50 Mg/Ml In Oral Syringe TUBE 125 mg
Q12 ZULY Administration
Home Medications
�Medication �Instructions �Recorded
albuterol sulfate 90 mcg/actuation 2 puff inhalation R Q4HPRN PRN SOB 02/10/17
aerosol inhaler
nadolol 20 mg tablet 20 mg PO DAILY CIRRHOSIS 04/11/19
fluticasone fur. 200 mcg-umeclid 1 inh inhalation DAILY 06/19/24
62.5 mcg-vilant 25 mcg Lung/Breathing Issues
inhalat.powder (Trelegy Ellipta)
furosemide 20 mg tablet 20 mg PO DAILY Fluid 06/19/24
Retention/Swelling
lactulose 10 gram/15 mL (15 mL) 10 g PO DAILY CIRRHOSIS 06/19/24
oral solution
omeprazole 20 mg tablet,delayed 20 mg PO DAILY Gastrointestinal 06/19/24
release Issue
spironolactone 50 mg tablet 50 mg PO DAILY Fluid 06/19/24
Retention/Swelling
--- NOTE | 2024-06-26 16:51 | PTCARENOTE ---
No changes in assessment. Vitals stable. Patient repositioned for comfort.
--- NOTE | 2024-06-26 20:00 | PTCARENOTE ---
Received pt intubated. No response to painful stimuli. Opens eyes at times but no tracking or commands followed. Pupils 5mm, sluggish R > L. Weak cough/gag. No sedation. ST on tele, HR 100s. BP 100s/50s. On DC levophed at 30mcg and vasopressin at
0.03units to maintain MAP>65. +3 anasarca. Weak radial/DP pulses. Scleral edema present. #8 ETT @ 21cm moved to left. On pressure support /, 40%. Suctioned for scant amt thick avalos via ETT. Lungs coarse with rhonchi throughout. Hypoactive bowel
sounds throughout. Obese, full abdomen. DH tube in place. FMS draining small amount brown liquid stool- flushed. Leger in place but no urine output noted. Skin jaundiced. R hand weeping. R radial A line transduced and zeroed. L DL PICC with levo and
vaso. R IJ HD cath in place. Turning q2
Sister, Mitali, staying overnight. Updated on plan of care and questions answered.
[2024-06-27] VITALS (8 sets, daily range): BP systolic 63–144; BP diastolic 43–69; BMI 35.9
--- NOTE | 2024-06-27 | PTCARENOTE ---
Pt. reassessed. Neuro status unchanged. Slowly weaning levophed. Remains on vaso. No urine output. LUE weeping large amount, soaking pillow case. Monitoring
[2024-06-27] MEDS: LEVOPHED 258 MG IV ×2 (01:54→07:59)
[2024-06-27 04:50] LABS: PT 49.3 Sec (11.4-14.6)
[2024-06-27 04:53] LABS: INR 5.36
[2024-06-27 05:11] LABS: Hematocrit 26.3 % (37.0-47.0); Mean Corp Hgb Conc. 34.2 g/dL (33.0-37.0); Mean Corpuscular Hgb 30.8 pg (27.0-31.0); Mean Corpuscular Volume 90.1 fL (81.0-99.0); Platelet Count 20 10^3/uL (130-400); Red Blood Cell Count 2.92 10^6/uL (4.20-5.40); Red Cell Dist. Width 17.8 % (11.5-14.5); White Blood Cell Count 40.8 10^3/uL (4.8-10.8)
[2024-06-27 05:15] LABS: ALT (SGPT) 31 U/L (0-35); AST (SGOT) 79 U/L (14-36); Albumin 1.3 g/dl (3.5-5.0); Alkaline Phosphatase 65 U/L (38-126); Blood Urea Nitrogen 20 mg/dl (7-17); Calcium 5.6 mg/dl (8.4-10.2); Carbon Dioxide 12 mmol/L (22-30); Chloride 116 mmol/L (98-107); Estimated Creatinine Clearance 51 ml/min; Glucose 104 mg/dl (70-99); Magnesium 1.4 mg/dl (1.6-2.3); Potassium 3.3 mmol/L (3.5-5.1); Sodium 138 mmol/L (135-145); Total Bilirubin 7.7 mg/dl (0.2-1.3); Total Protein 3.4 g/dl (6.3-8.2); eGFR 54.73
--- NOTE | 2024-06-27 06:20 | PTCARENOTE ---
Labs reviewed with CONTACT [employer] LAT[employer] OPERATOR. Multiple orders received- see MAR. 2 unit FFP ordered. Needs type + screen- will draw. Pt. stacking breaths, dyssynchronous with vent. RT to bedside. Switched back to A/C mode - 16/450/+5/40%. Spo2 96%. Suctioned for thick
brown. Appears more comfortable. Levo was weaned to 20mcg then vaso shut off. BP maintained for about 90 minutes then suddenly dropped to 80s/50s. Vaso restarted and levophed titrated back up to 30mcg. CONTACT [employer] LAT[employer] OPERATOR notified. Arash ordered but not started yet.
BP stable at this time. When bathing pt., gown and linens more saturated from weeping arms and abdomen (from paracentesis site).
[2024-06-27] MEDS: KCL ELIXIR 40 MEQ TUBE (06:30)
[2024-06-27] MEDS: MAGNESIUM SULFATE 50 IV (06:30)
[2024-06-27] MEDS: SODIUM BICARBONATE 50 MEQ IV ×2 (06:30)
[2024-06-27] MEDS: SOLU-CORTEF 50 MG IV (06:30)
[2024-06-27] MEDS: CALCIUM GLUCONATE 130 MG IV (06:44)
[2024-06-27] MEDS: DUONEB 3 ML INH (07:26)
--- NOTE | 2024-06-27 07:47 | W.PN.INTV ---
Today's Communication / Plan
Recommendations
Overall steady decline with multiorgan failure and no improvement neurologically
Multiple family meetings-they wish withdrawal of extraordinary means of life support including ventilator with comfort care-we will respect
Endotracheal tube will be pulled once additional family members and friends have visited
Assessment
-
69-year-old woman with history of alcoholic cirrhosis came to the hospital complaining of increased abdominal girth, abdominal pain, poor p.o. intake, found to be hypotensive. Transferred to the intensive care unit due to lack of response to IV
fluids. Started on vasopressors 06/19/2024. Suspicious for spontaneous bacterial peritonitis
Septic shock
Worsening abdominal distention/abdominal pain
Possible spontaneous bacterial peritonitis vs ? Less likely colitis
CT abdomen pelvis 06/19/2024:Cirrhotic morphology with evidence of portal hypertension and moderate volume ascites.
Cholelithiasis. There is gallbladder wall thickening which is likely secondary to chronic liver disease.
Colonic diverticulosis. There is questionable wall thickening along the sigmoid colon and proximal ascending colon which may represent colitis.
Complex ventral hernia containing fat and ascites.
Respiratory failure requiring intubation-acute hypoxemic
Intubated 06/22/2024
Extubated
Hyponatremia acute kidney injury
Anion gap metabolic acidosis-increased lactic acid
Leukocytosis
Anemia
Elevated LFTs
Elevated ammonia
Limited DNR-no chest compressions or shocking-removal of endotracheal tube 06/27/2024 requested by family for comfort care
Conditions present prior admission:
Alcoholic cirrhosis since 2017
Portal hypertensive gastropathy
Hypervolemic hyponatremia
Ventral hernia history of asthma only follows up with primary care
Former alcohol use quit in 2017
Plan:
Remains critically ill with a decline now-increased hypotension, back on pressors, white blood cell count significant elevation and no change in mental status
Ventilator settings reviewed-airway pressures adequate
Continue attempts at weaning FiO2 and PEEP
Patient had been tolerating spontaneous breathing trials the last 2 days-not extubated due to significant decline in mental status-now hypotensive, leukocytosis, not extubated will
Follow occasional ABG
Follow airway pressures and avoid barotrauma and volutrauma
Continue nebulizers-significant wheezing on exam though may have 'cardiac' component with renal failure and fluid overload
Chest x-ray 06/22/2024-NAD, ET tube 4 cm above adan
Chest x-ray 06/24/2024-low lung volumes, no pneumothorax, no pleural effusions
Chest x-ray 06/26/2024-decrease in mild airspace opacification suggesting atelectasis, mild elevation right hemidiaphragm
Follow chest x-rays
VAP prevention protocol continues
Cultures reviewed
Broad-spectrum empiric antibiotics to cover spontaneous bacterial peritonitis
Infectious disease following-correspondence reviewed-continue meropenem-May de-escalate tomorrow
Norepinephrine and vasopressin and Arash-Synephrine as needed-consider Giapreza
Trend lactate
Hydrocortisone 50 mg IV every 6 hours-random cortisol was 60, however, surviving sepsis guideline revision recommendations suggest consideration and fluids/pressor unresponsive patient's-begin to taper
Patient had upper extremity edema-left upper extremity ultrasound 06/24/2024-no DVT
Monitor renal function
Nephrology following-correspondence reviewed-reviewed with Dr. Pickett-continue for an additional 24 hours
Replace electrolytes
Continuous renal replacement therapy initiated 06/22/2024-discontinued on 06/26/2024
Status post 2 units FFP prior to dialysis catheter placement for elevated INR
Echocardiogram 06/21/2024-EF 55-60%, aortic sclerosis, PA systolic 38
Consideration towards resumption of continuous renal replacement therapy, ever, now family has elected towards comfort care
Gastroenterology following-correspondence reviewed
Last MELD today 39
Transplant film or videotape editor at [place] updated by gastroenterology
Consider enteral feedings in the next couple days-will leave up to GI
Status post paracentesis 06/20/2024-WBC 6983, total protein less than 2, albumin less than 1, LDH 477, amylase 191
Repeat paracentesis 06/22/2024-WBC 3934, total protein 3.3, albumin 1.5, LDH 881, amylase 457, cultures pending
Follow hemoglobin-currently 12.5
Transfuse as needed
Monitor thrombocytopenia-currently 41
Marked increase in WBCs with new hypotension and norepinephrine requirements-recommend IR diagnostic and therapeutic paracentesis
Consider C. difficile as well with liquid diarrhea and marked rise in WBCs-reviewed with GI personally
Repeat ammonia 20
Lactulose as needed
Antibiotics-continue per infectious disease
Albumin
Gastroenterology contacted tertiary center-no need for transfer at this time-consider transfer for consideration towards transplant
Nutrition per gastroenterology
Lactulose WI
Monitor neurologic status
CT head without obvious acute infarct
Neurology evaluation with ongoing mental status decline-off sedation
DVT prophylaxis-subcu heparin every 12-INR elevated-currently 2.8-hold heparin
GI prophylaxis-on pantoprazole
Nutrition-avoid nasogastric tube with history of varices for now
Dr. Vaz reviewed with multiple family members including and 2 daughters at the bedside 06/22/2024-overall poor prognosis-they understand-POA now wants limited DNR-no chest compressions or shocking
Dr. Vaz reviewed with daughter and at the bedside-06/21/2024 updated on current clinical situation, critical nature of her multi organ failure, morbidity and high mortality rate unfortunately and discussed CODE STATUS as well
Dr. Vaz reviewed with daughters and at the bedside 06/22/2024-current clinical situation, mild improvement, potential [facility] ICU course, ongoing need for renal replacement therapy and potential trial for spontaneous breathing trial
Dr. Vaz reviewed daughters as well as at the bedside 06/24/2024-including current clinical situation, ongoing need for CRRT, pressors, and attempts at spontaneous breathing trial
Dr. Vaz reviewed with daughter at the bedside 06/25/2024-current clinical condition, spontaneous breathing trial, decreased mentation, overall slight improvement
Dr. Vaz reviewed with 2 daughters and 06/26/2024-reviewed neurologic evaluation/consultation, little chance for meaningful recovery, current clinical situation and unfortunately very poor prognosis
Dr. Vaz reviewed with 2 daughters and 06/27/2024-they have had multiple family meetings and comfort care and withdrawal from the ventilator was requested
Critical care statement: A total of 45 minutes of critical care time was provided for this patient today. This includes management of unstable vital signs, evaluation of the patient at bedside, reviewing the patient's pertinent medical records
including radiographs, management of respiratory failure, ventilator management, following ABGs, pressor management, sepsis management, microbiology, laboratory evaluations, and discussion with primary team, consultants, pharmacy, nutrition,
physical therapy, case management, charge nurse, critical care nursing, and respiratory therapy.
Subjective Dataa
Subjective Data
Date of Service:
Date of Service: June 27, 2024
Chief Complaint: [facility] Spinner Follow Up (Septic shock) and Pulmonary Follow Up
Subjective:
No change in her mental status, still on pressors, not tolerating wean, no increase secretions, minimal renal function,
Review of Systems
General: Unobtainable - Pat Unresp
Objective Data
Data Reviewed
Vital Signs / I&O / Oxygen:
Vital Signs
Temp Pulse Resp BP Pulse Ox
98.1 F 96 16 123/67 96
06/27/24 07:00 06/27/24 06:30 06/27/24 06:30 06/27/24 00:00 06/27/24 07:30
Intake and Output
06/26/24 06/27/24 06/28/24
06:59 06:59 06:59
Intake Total 573.6 / 631.8 1432.8 / 1432.8
Output Total 2694 / 2789 107 / 107
Balance -2120.4 / -2157.2 1325.8 / 1325.8
SaO2 [CPAP/PSV] 96
SaO2 [A/C] 96
SaO2 96
Nasal Cannula flow liters per 2
minute
Physical Exam
General: Respiratory Distress (Mild at rest) and Comfortable
HEENT: Normocephalic, Anicteric and Moist Mucous Membranes
Cardiovascular: Regular Rhythm
Respiratory: Wheeze (Diffuse expiratory), Crackles (Basilar), Rhonchi (n), Accessory Resp Muscle Use (Mild), Stridor (n), ET Tube and Other (Decreased breath sounds both bases)
GI: Distended (Mildly tender, ascites.) and Other ( Ventral hernia not tender not erythematous)
Neurology: Unresponsive, Other and Other
Skin: Warm, Good Color, Cyanosis (n) and Rash
Labs/Micro/Reports
Lab Data
06/27/24 03:43
Laboratory Results
06/27/24
03:43
PT 49.3 H
INR 5.36 H* D
Microbiology
06/26/24 14:15 Peritoneal Fluid Gram Stain - Preliminary
06/26/24 09:32 Feces/Stool C. difficile GDH Antigen & Toxins - Final
C. difficile antigen positive, toxin negative.
Clostridium difficile present, but toxin not detected.
Patient may be a carrier, colonized with nontoxinogenic
strain or the level of toxin in sample is below detection
limits. This information should be used in conjunction with
the patient's clinical history.
06/20/24 12:38 Blood/Venous Blood Culture - Final
No Growth - Final Report
06/22/24 13:05 Peritoneal Fluid Body Fluid Culture - Final
No Growth After 72 Hours
06/22/24 13:05 Peritoneal Fluid Gram Stain - Final
06/19/24 18:26 Blood/Venous Blood Culture - Final
No Growth - Final Report
06/20/24 11:16 Peritoneal Fluid Body Fluid Culture - Final
Klebsiella pneumoniae
06/20/24 11:16 Peritoneal Fluid Gram Stain - Final
--- NOTE | 2024-06-27 07:51 | W.PN.NEPH.PH ---
Today's Communication / Plan
-
If aggressive support is to be pursued by family then I will need to restart CRRT (decision pending)
Assessment/Plan
-
Assessment
Alcoholic cirrhosis
Hypotension
Abdominal pain
Sepsis
Lactic acidosis
Metabolic acidosis
LILIBETH
Hyponatremia
Plan
remains anuric
metabolic acidosis and leukocytosis worsening
Thrombocytopenia with platelet count now at 20
Hypocalcemia evolving
Neurological status remains poor
If full support is to be continued I will need to place her back on CRRT as she remains hypotensive and rapidly acidotic
Patient currently remains intubated and requires 2 pressor support
Calcium and potassium provided this a.m.
Keep mean arterial pressure greater than 65
Antibiotics per infectious disease
can consider switch to IHD once off pressors
Patient remains critically ill with an uric renal failure vent dependent respiratory failure and pressor dependent hypotension
Critical care time spent 31 minutes
-
-
Date of Service: June 27, 2024
CC / HPI / ROS
-
Chief Complaint:
Acute kidney injury
History of Present Illness:
Critically ill in ICU and pressor support
on pressors for hypotension
CRRT clotted
Metabolic acidosis worsening
Thrombocytopenia evolving
Hypocalcemia
On ventilator, sedated
White cell count rise
Review of Systems:
Remains anuric via lawler
Sedated
Hypothermic
Labs
-
Labs:
WBC 40.8 10^3/uL (4.8-10.8) H* 06/27/24 03:43
RBC 2.92 10^6/uL (4.20-5.40) L 06/27/24 03:43
Hgb 9.0 g/dL (12.0-16.0) L D 06/27/24 03:43
Hct 26.3 % (37.0-47.0) L 06/27/24 03:43
Plt Count 20 10^3/uL (130-400) L* D 06/27/24 03:43
eGFR 54.73 06/27/24 03:43
Phosphorus 2.9 mg/dl (2.5-4.5) 06/26/24 05:09
Albumin 1.3 g/dl (3.5-5.0) L D 06/27/24 03:43
Physical Exam
-
Vital Signs:
Vital Signs
Temp Pulse Resp BP Pulse Ox
98.1 F 96 16 123/67 96
06/27/24 07:00 06/27/24 06:30 06/27/24 06:30 06/27/24 00:00 06/27/24 07:30
Cardiovascular:: Regular rate and rhythm
Respiratory:: Bilateral: Coarse
Lung Excursion:: Normal
Abdomen:: Nontender and Soft
Bowel Sounds:: Normal
Extremity Edema:: +1: Bilateral:
Lawler Catheter: Yes
Other Findings::
gen:intubated and sedated
[2024-06-27] MEDS: FIRVANQ 125 MG TUBE (08:19)
[2024-06-27] MEDS: DUPHALAC/CHRONULAC 10 GRAMS TUBE (08:19)
[2024-06-27] MEDS: NSS (PRESERVATIVE FREE) 10 ML IV (08:20)
[2024-06-27] MEDS: MERREM 500 MG IV (08:20)
[2024-06-27] MEDS: STERILE WATER FOR INJECTION 10 ML IV (08:20)
[2024-06-27] MEDS: PROTONIX IV 40 MG IV (08:21)
[2024-06-27 08:42] LABS: Nucleated Red Blood Cells % 0.4 %
[2024-06-27 08:43] LABS: Absolute Neutrophils -Man Diff 38.3 10^3/uL (1.4-6.5); Band Neutrophils 14 % (0-3); Lymphocytes 2 % (20-51); Monocytes 3 % (2-9); Myelocytes 1 % (-); Platelets Checked Yes; Segmented Neutrophils 80 % (42-75)
[2024-06-27 08:45] LABS: Anisocytosis 1+; Hypochromasia Slight; Normal RBC Morphology No; Polychromasia Slight
[2024-06-27 08:46] LABS: Total Cells Counted 100
--- NOTE | 2024-06-27 09:31 | W.PN.ID1 ---
Addendum entered and electronically signed by Lala Akers MD 06/27/24 11:54:
Notified of plan to withdraw care around 11:40 am, I am in support of this decision
AW
Original Note:
Date of Service
Date of Service: June 27, 2024
Today's Communication
now with polymicrobial ascites - clear; progressed cell counts
added IV vancomycin though low concern for resistant gram positive given hospital antibiotigram and gram stain
continue meropenem, micafungin, oral vancomycin
asked nephrology to notify me if crrt restarted as Ill need to make dose adjustments
Prognosis grim
Assessment / Plan
# Spontaneous bacterial peritonitis
# Decompensated ETOH cirrhosis, MELD 39
# Septic shock weaned off 2 pressors, now on 1 pressor,
# multisytem organ failure - progressive
# LILIBETH - currently off of CRRT
# Hepatic Encephalopathy
- 06/20 s/p paracentesis 2.5 L ascites: 6,983 wbc, 79% polys
06/20 Ascites Cx K pneumoniae
-06/22 ascites: 3934 wbc, 97% polys
06/22 Ascites cx neg to date
- blood cx x2 finalized negative
-06/26 s/p paracentesis 1.5L; 13,000 WBC, 92%PMNs; gram stain GPCs in pairs and short chains & GNR
- 06/26 ascitic cx: in progress
- shock worsening, due to progressive SBP - now apparently polymicrobial
- if patient stabilizes would purse ct a/p with oral contrast
- Continue meropenem (d8), now off of CRRT - if restarted will need a dose adjustment
- continue meropenem - survival advantage described in SBP - prognosis still very guarded with low probability of survival
- add vancomycin
- c/w empiric micafungin
- for C diff colonization c/w oral vanc bid
- Follow vitals/clinically
- Per GI, transfer to [facility] when stable.
- despite aggressive medical management, prognosis remains grim over hours to days
Chief Complaint
-: Leukocytosis and Clinical Sepsis
Subjective / Review of Systems
afebrile
further increase in pressor requirement
urine output 25 ccs total
spoke with IR: 1.5L of clear ascitic fluid removed during the procedure, uncomplicated. I am told there is documentation under a nursing note but I could not locate it.
further increased wbc and decline in plt
cr now 1.1 - decisions pending re: CRRT
notified that family has decided to withdraw care
Vital Signs / Physical Exam
Vital Signs
Vital Signs
Temp Pulse Resp BP Pulse Ox
98.1 F 96 23 128/59 96
06/27/24 09:19 06/27/24 09:19 06/27/24 09:19 06/27/24 09:19 06/27/24 09:19
Physical Exam
Constitutional: Acutely Ill, Chronically Ill and Toxic
Cardiovascular: Regular Rate
Pulmonary: Symmetric
Gastrointestinal: Distended
Skin: Dry and Jaundice
Neurological: Negative Awake
Objective Data
Lab Data
Lab Results
06/27/24 03:43
PT 49.3 Sec (11.4-14.6) H 06/27/24 03:43
INR 5.36 H* D 06/27/24 03:43
APTT 41.6 Sec (23.4-35.0) H 06/19/24 22:00
Estimated Creat Clear 51 ml/min 06/27/24 03:43
Lactic Acid 3.0 mmol/L (0.7-2.0) H 06/21/24 09:48
Total Bilirubin 7.7 mg/dl (0.2-1.3) H 06/27/24 03:43
AST 79 U/L (14-36) H 06/27/24 03:43
ALT 31 U/L (0-35) 06/27/24 03:43
Alkaline Phosphatase 65 U/L (38-126) 06/27/24 03:43
Most recent labs reviewed.
Micro Results:
06/26/24 14:15 Body Fluid Culture - Pending
Peritoneal Fluid Gram Stain - Preliminary
06/26/24 09:32 C. difficile GDH Antigen & Toxins - Final
Feces/Stool C. difficile antigen positive, toxin negative.
Clostridium difficile present, but toxin not detected.
Patient may be a carrier, colonized with nontoxinogenic
strain or the level of toxin in sample is below detection
limits. This information should be used in conjunction with
the patient's clinical history.
06/20/24 12:38 Blood Culture - Final
Blood/Venous No Growth - Final Report
06/22/24 13:05 Body Fluid Culture - Final
Peritoneal Fluid No Growth After 72 Hours
Gram Stain - Final
06/19/24 18:26 Blood Culture - Final
Blood/Venous No Growth - Final Report
06/20/24 11:16 Body Fluid Culture - Final
Peritoneal Fluid Klebsiella pneumoniae
Gram Stain - Final
06/19/24 CT a/p: Cirrhotic morphology with evidence of portal hypertension and moderate volume ascites. Cholelithiasis. There is gallbladder wall thickening which is likely secondary to chronic liver disease. Colonic diverticulosis. There is
questionable wall thickening along the sigmoid colon and proximal ascending colon which may represent colitis. Complex ventral hernia containing fat and ascites.
06/19/24 CXR: No active cardiopulmonary disease. The tip of the PICC line is at the cavoatrial junction
--- NOTE | 2024-06-27 10:20 | PHA.VAN.IN ---
Assessment
- Assessment
Renal Function: Other (anuric; CRRT stopped yesterday)
Concomitant Antimicrobials: meropenem; micafungin; PO vancomycin
- Previous Dosing Experience
Previous Regimen: dosed by random levels (06/20-06/24/2024)
Plan
- Plan
Initial / Loading Dose: 1000 mg x 1 dose today (~11 mg/kg)
Maintenance Regimen: dose by random level
Monitoring: random level in AM 06/28/24
Pharmacokinetics Vancomycin I
- -
Patient Age: 69
Patient Sex: Female
Vancomycin Day #: 1
Indication: Gi / Intra-Abdominal
Requesting Provider: pushpa
Pertinent Antimicrobial Allergies:
no pertinent antibiotic allergies
Height / Weight:
Height 5 ft 2 in
Actual Weight 88.9 kg
Pertinent Past Medical History: pt anuric, CRRT stopped ; pressor support
- Vital Signs / Lab Results
Temp Pulse Resp BP Pulse Ox
97.9 F 96 23 141/62 98
06/27/24 10:03 06/27/24 10:03 06/27/24 10:03 06/27/24 10:03 06/27/24 10:03
Lab Results - Hematology
06/25/24 06/26/24 06/27/24
06:15 05:09 03:43
WBC 22.9 H 43.7 H* 40.8 H*
Band Neutrophils 16 H D 14 H
Lab Results - Chemistry
06/24/24 06/25/24 06/25/24
18:50 00:16 06:15
BUN 16 15 15
Creatinine 0.7 0.6 0.7
Estimated Creat Clear 82 96 81
Albumin 3.2 L
06/25/24 06/25/24 06/25/24
12:31 18:22 23:46
BUN 15 15 15
Creatinine 0.8 0.8 0.9
Estimated Creat Clear 71 71 63
Albumin 3.0 L
06/26/24 06/27/24
05:09 03:43
BUN 16 20 H
Creatinine 0.9 1.1 H
Estimated Creat Clear 63 51
Albumin 2.9 L 1.3 L D
Microbiology Results
06/26/24 14:15 Gram Stain - Preliminary
Peritoneal Fluid
06/26/24 09:32 C. difficile GDH Antigen & Toxins - Final
Feces/Stool C. difficile antigen positive, toxin negative.
Clostridium difficile present, but toxin not detected.
Patient may be a carrier, colonized with nontoxinogenic
strain or the level of toxin in sample is below detection
limits. This information should be used in conjunction with
the patient's clinical history.
06/20/24 12:38 Blood Culture - Final
Blood/Venous No Growth - Final Report
06/22/24 13:05 Body Fluid Culture - Final
Peritoneal Fluid No Growth After 72 Hours
Gram Stain - Final
[2024-06-27] MEDS: PITRESSIN 100 IV (10:22)
--- NOTE | 2024-06-27 10:43 | PTCARENOTE ---
Rec'd care of patient at 0700. Patient unresponsive. Pupils dilated, +5mm. Sluggish. Sclera edema; yellow in color. Weak gag reflex. Slight withdrawal to pain observed in b/l foot. Inconsistent. NSR with rate in the 90's. +3 anasarca. Weak pulses.
#8 ett @ 21cm. Transitioned to wean at 0852 from A/C. 8/5 40%. Lung sounds coarse/rhonchi throughout. Crackles in b/l base. Hypo BS. FMS in place for liquid stools. DHT in left nare for meds. Leger draining dark jessica urine. Anuric. 35 cc's between
1933-3215. Patient jaundice. Weeping from b/l UE and abdomen. Nephrology awaiting family decision on GOC. Comfort vs reinitiating CRRT. Levophed and Vaso infusing for MAP>65 through DL PICC. Mag, Ca, K, bicarb repleted by assistant shift supervisor RN. 1st unit of
FFP transfused.
--- NOTE | 2024-06-27 10:59 | W.PN.GI.CBS2 ---
Today's Communication / Plan
-
supportive care
Assessment / Plan
-
69 year-old female with alcoholic cirrhosis presenting with abdominal pain most suggestive of SBP. Her MELD 1 month ago was 15, 06/20/2024 was 32 and on 06/21/2024 is 39. On admission concern for severe sepsis related to SBP with wBC 6983 on 06/20
and cx + klebsiella. s/p albumin. She was noted with hypotension requiring multiple pressors, LILIBETH with need for CRRT, and vent support. She follows with Dr. Lozoya for Reagan prior to admission. ID following for abx, Renal following for LILIBETH,
boilermaker fitter/hospitalist following for medical management.
Impression:
SBP w/ sepsis - critically ill on admission requiring multiple pressors with repeat tap with increasing wbc
Septic shock
Pancytopenia on admission now with leukocytosis
Hyponatremia
LILIBETH with current CRRT
Alcoholic cirrhosis
resp failure s/p intubation
Portal hypertensive gastropathy
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
Recommendations
- Pt remains critically ill
- ascitic fluid with wbc > 13, 000, antibiotics per id, await culture
- Trend labs including wbc
- Avoid hepatoxins.
- bilirubin has held stable
- not waking up after sedation off, neuro following
supportive care for now
Subjective
Subjective
Date of Service: June 27, 2024
Pt remains intubated, not responsive
tap done yesterday with high wbc
Objective
Data Reviewed
Laboratory Data:
Laboratory Results
06/27/24 03:43
Laboratory Results
PT 49.3 Sec (11.4-14.6) H 06/27/24 03:43
INR 5.36 H* D 06/27/24 03:43
APTT 41.6 Sec (23.4-35.0) H 06/19/24 22:00
Phosphorus 2.9 mg/dl (2.5-4.5) 06/26/24 05:09
Magnesium 1.4 mg/dl (1.6-2.3) L 06/27/24 03:43
Total Bilirubin 7.7 mg/dl (0.2-1.3) H 06/27/24 03:43
AST 79 U/L (14-36) H 06/27/24 03:43
ALT 31 U/L (0-35) 06/27/24 03:43
Alkaline Phosphatase 65 U/L (38-126) 06/27/24 03:43
Lipase 27 U/L (23-300) 06/19/24 09:42
Vital Signs and I&O:
Vital Signs
Temp Pulse Resp BP Pulse Ox
97.9 F 95 23 141/62 98
06/27/24 10:03 06/27/24 10:30 06/27/24 10:30 06/27/24 10:03 06/27/24 10:03
I&O
06/26/24 06/27/24 06/28/24
06:59 06:59 06:59
Intake Total 573.6 / 631.8 1432.8 / 1674.3 692.1 / 692.1
Output Total 2694 / 2789 107 / 107 35 / 35
Balance -2120.4 / -2157.2 1325.8 / 1567.3 657.1 / 657.1
Physical Exam
Physical Exam
GI: Soft and Other (1 site with some leaking fluid, right side, left side bandage)
Neuro: Non Focal (not responsive)
--- NOTE | 2024-06-27 11:21 | PTCARENOTE ---
Patient's and 3 daughters at bedside to discuss withdrawing care.
--- NOTE | 2024-06-27 11:30 | PTCARENOTE ---
Decision to withdrawal care made by family. Family requesting to have time to say their goodbyes with patient before terminal extubation.
--- NOTE | 2024-06-27 11:38 | PTCARENOTE ---
GOL notified of plan for terminal extubation. At this time, patient not a candidate for donation.
[2024-06-27] MEDS: DUONEB INH ×3 (11:48→19:49)
[2024-06-27] MEDS: MYCAMINE IV (12:18)
--- NOTE | 2024-06-27 12:25 | W.PN.HOSP.TC ---
Today's Communication/Plan
-
worsening coagulopathy with INR>5
Platelets dropped
High risk of spontaneous bleeding - now elevated
no clinically significant improvement with Abx, additional micafungin and oral Vanco via NG
DIscussed poor prognosis with the family
Assessment / Plan
Assessment / Plan
69yo F with PMHx of liver cirrhosis, COPD presented with worsening abdominal pain, managed for SBO, developed worsening LILIBETH and coagulopathy with acute hepatic encephalopathy, so had to be intubated on 06/22/24 for protection of airways. Started on
CRRT on 06/23/24 with initial improvement in pressor requirements however developed leukemoid reaction with increase in Levophed dose on 06/26/24 so Micafungin added to Merrem and started on oral Vanco 2/2 C.diff carrier status. As per neurologist
evaluation - patient without reflexes even since off medical sedation. Developed worsening coagulopathy and family is making decision if to proceed with withdrawal of care
A/P:
#septic shock 2/2 SBP in patient with liver cirrhosis
#Acute hepatic encephalopathy
Pressors, sedation and vent support as per back end architect
Lactulose
S/P paracentesis on 06/20/24 with Klebsiella in fluid cultures, meeting criteria for SBP by WBC count 6983, on repeated paracentesis 3934 on 06/23/24
Repeated paracentesis on 06/22/24
Follow Bcx
ID follows: merrem. Micafungin re-added on 06/26/24 with new leukemoid reaction
vanco discontinued
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
started empiric oral Vanco on 06/26/24
#Acute hepatic failure on chronic liver cirrhosis
#Esophageal varices
GI follows
daily MELD labs
Steroids for sepsis
GI follows - in close communication with transplant hepatology . Since SBP and shock - as per my understanding from conversation with GI - not a candidate for urgent transplantation
#Hyponatremia with HAGMA
#LILIBETH, most likely 2/2 shock, cannot r/o HRS
Albumin
Nephrology for dialysis
follow BMP
s/p 3% sodium IV
CRRT initiated on 06/23/24 and stopped on 06/26/24 to monitor kidney function
#Anemia
no over bleeding seen
s/p 1unit PRBC on 06/22/24
follow H&H
PPI
#Thrombocytopenia
#Transaminitis
2/2 liver disease
#Coagulopathy
s/p FFP on 07/02/24 for HD catheter placement
follow daily INR
DVT ppx SCD (2/2 coagulopathy)
Limited DNR - no CPR
I have spent at least 59min reviewing chart, test results, communication with consultants and family and direct patient care
Anticipated Discharge: > 48 hours
Subjective/Interval History
-
Date of Service: June 27, 2024
Objective Data
-
Labs:
Laboratory Results
06/27/24 06/27/24
03:43 10:00
WBC 40.8 H*
Hgb 9.0 L D
Hct 26.3 L
Plt Count 20 L* D
PT 49.3 H Pending
INR 5.36 H* D Pending
APTT Pending
Sodium 138 Pending
Potassium 3.3 L D Pending
Chloride 116 H Pending
Carbon Dioxide 12 L* Pending
BUN 20 H Pending
Creatinine 1.1 H Pending
Glucose 104 H Pending
Calcium 5.6 L* D Pending
Total Bilirubin 7.7 H
AST 79 H
ALT 31
Alkaline Phosphatase 65
Vital Signs:
Vital Signs
Temp Pulse Resp BP Pulse Ox
98.1 F 95 24 115/69 99
06/27/24 12:15 06/27/24 12:00 06/27/24 12:00 06/27/24 12:00 06/27/24 12:00
I&O
06/26/24 06/27/24 06/28/24
06:59 06:59 06:59
Intake Total 573.6 / 631.8 1432.8 / 1674.3 785.1 / 785.1
Output Total 2694 / 2789 107 / 107 55 / 55
Balance -2120.4 / -2157.2 1325.8 / 1567.3 730.1 / 730.1
Review of Systems
-
Unable to obtain full review of systems at this time due to: Patient Intubation
Physical Exam
-
General: Intubated
Respiratory: Clear to Auscultation
Cardiac: Regular Rhythm
GI: Distended
Rectal: Other (watery diarrhea)
Musculoskeletal: No Edema
Neuro: Other (not sedated, nut unresponsive)
[2024-06-27] MEDS: SUBLIMAZE 25 MCG IV ×2 (12:49→14:00)
--- NOTE | 2024-06-27 12:51 | IR.POSTOP ---
IRAD Post Procedure Note
-
Description of Findings:
Delayed entry. Procedure performed on 06/26/2024. Successful paracentesis. 1500 cc drained.
--- NOTE | 2024-06-27 12:55 | RESPNOTE ---
pt terminally extubated at 1250. family at bedside.
--- NOTE | 2024-06-27 12:59 | PTCARENOTE ---
1250- Patient extubated. Hina NGT removed. Fentanyl administered for CPOT. Daughters and sister at bedside. Emotional support provided.
[2024-06-27] MEDS: SUBLIMAZE 50 MCG IV (17:56)
[2024-06-27] MEDS: ATIVAN 1 MG IV ×2 (18:00→20:40)
--- NOTE | 2024-06-27 18:18 | PTCARENOTE ---
Report given to 2N RN. Patient transported with belongings. Daughters and sister aware and at bedside.
[2024-06-27] MEDS: SOLU-CORTEF IV (20:36)
[2024-06-27] MEDS: DILAUDID 0.25 MG IV ×2 (20:40→22:07)
[2024-06-27] MEDS: FIRVANQ TUBE (21:12)
--- NOTE | 2024-06-28 09:03 | W.PN.UPDATE ---
Update Note
Progress Note Update
reviewed chart, pt now in comfort care
will s/o
--- NOTE | 2024-06-28 09:05 | PTCARENOTE ---
PCT and this RN could not obtain a BP on this pt this AM. HR and breath sounds still noted, breath sounds labored. HR 82. SP02 85% on RA.
--- NOTE | 2024-06-28 10:26 | PTCARENOTE ---
Family called this RN in to see if patient was still breathing. This RN could not auscultate any breath sounds or heartbeat. MD notified, at bedside to pronounce. Family not expressing any need for anything at this time. New comfort box of food just
arrived and placed in the room.
--- NOTE | 2024-06-28 11:10 | W.PN.DEATH ---
Pronouncement of
-
Called to see patient to pronounce.
No spontaneous heart tones or respirations noted.
Patient not responsive to verbal stimuli.
Patient is pronounced .
Time of : 10:14
Date of : 06/28/24
Cause of : Septic shock secondary to spontaneous bacterial peritonitis, acute hepatic failure on chronic liver cirrhosis, hyponatremia, coagulopathy, anemia
Family Notified: Yes
--- NOTE | 2024-06-28 11:24 | W.DCSUMMARY ---
Discharge Summary
Discharge Data
Date of Admission: 06/19/24
Date of Discharge: 06/28/24
-
Pending Results: No
Hospital Course
Discharge diagnosis:
Septic shock secondary to spontaneous bacterial peritonitis, acute hepatic failure on chronic liver cirrhosis, hyponatremia, coagulopathy, anemia
Hospital course:
69-year-old female with past medical history of liver cirrhosis, COPD, coagulopathy came to the hospital with septic shock secondary to peritonitis. Patient was seen by gastroenterology throughout hospitalization. Patient went to the ICU on
admission and was requiring multiple pressors. She also developed acute hepatic encephalopathy and was eventually put on ventilator support. She did got a paracentesis which was consistent with peritonitis. Patient was also seen by infectious
disease who had her on antibiotics and antifungals. Her hospital course continue to get worse with worsening septic shock along with acute hepatic failure. Our GI and also hospital also contacted transplant hepatology at [facility] who did
not thought patient is a candidate for any urgent transplantation. She also developed acute kidney injury and hyponatremia for which she was being seen by nephrology. Her symptoms and labs continue to get worse and after extensive discussion with
multiple consultants, family opted for comfort measures. Patient was then started on comfort measures and later on 06/28/2024.
Discharge Plan
-
Patient Disposition:
Date/Time
Date/Time: 06/28/24 10:14
Discharge Date and Time
Discharge Date/Time: 06/28/24 13:39
Print Language: KAZAKH
--- NOTE | 2024-06-28 12:55 | PTCARENOTE ---
Post mortem care provided, family previously at bedside has now left. [facility] called, pt not a candidate.
== END 2024-06-28 13:39 | disposition expired | DRG 871 ==
LOC: 2 NORTH 13:42
PROVIDERS: Internal Medicine; Internal Medicine Critical Care Medicine; Internal Medicine Gastroenterology; Nurse Practitioner Adult Health; Nurse Practitioner Family; Nurse Practitioner Primary Care; Physician Assistant Medical; Radiology Diagnostic Radiology; Specialist; ADMITTING PHYSICIAN Internal Medicine; ATTENDING PHYSICIAN Internal Medicine; CONSULT PHYSICIAN Internal Medicine Critical Care Medicine; CONSULT PHYSICIAN Internal Medicine Gastroenterology; CONSULT PHYSICIAN Internal Medicine Infectious Disease; CONSULT PHYSICIAN Psychiatry & Neurology Neurology; CONSULT PHYSICIAN Specialist; EMERGENCY PHYSICIAN Emergency Medicine; FAMILY PHYSICIAN Family Medicine
PROC: 0W9G3ZX Drainage of Peritoneal Cavity, Percutaneous Approach, Diagnostic (ICD-10-PCS; 2024-06-20)
PROC: 5A1945Z Respiratory Ventilation, 24-96 Consecutive Hours (ICD-10-PCS; 2024-06-22)
PROC: 30233K1 Transfusion of Nonautologous Frozen Plasma into Peripheral Vein, Percutaneous Approach (ICD-10-PCS; 2024-06-22)
PROC: 0BH17EZ Insertion of Endotracheal Airway into Trachea, Via Natural or Artificial Opening (ICD-10-PCS; 2024-06-22)
PROC: 30233N1 Transfusion of Nonautologous Red Blood Cells into Peripheral Vein, Percutaneous Approach (ICD-10-PCS; 2024-06-22)
PROC: 05HM33Z Insertion of Infusion Device into Right Internal Jugular Vein, Percutaneous Approach (ICD-10-PCS; 2024-06-23)
PROC: 0W9G3ZZ Drainage of Peritoneal Cavity, Percutaneous Approach (ICD-10-PCS; 2024-06-23)
DX: A41.9 Sepsis, unspecified organism (principal); J96.01 Acute respiratory failure with hypoxia; K65.2 Spontaneous bacterial peritonitis; R65.21 Severe sepsis with septic shock; E87.1 Hypo-osmolality and hyponatremia; D68.9 Coagulation defect, unspecified; E87.20 Acidosis, unspecified; K76.6 Portal hypertension; N17.9 Acute kidney failure, unspecified; D64.9 Anemia, unspecified; K70.31 Alcoholic cirrhosis of liver with ascites; K70.40 Alcoholic hepatic failure without coma; K76.82 Hepatic encephalopathy
CPT/HCPCS: 88305; 36556; 49083; 51798; 70450; 71045; 74177; 76937; 77001; 80048; 80053; 80202; 81003; 81015; 82042; 82140; 82150; 82248; 82330; 82533; 82805; 83605; 83615; 83690; 83735; 83935; 84100; 84132; 84157; 84300; 84302; 84478; 85025; 85027; 85610; 85730; 86850; 86900; 86901; 86920; 86927; 87015; 87040; 87070; 87077; 87186; 87205; 87324; 87449; 88112; 89051; 93005; 93306; 93971; 94002; 94003; 94640; 94660; 96365; 96366; 96367; 96375; 99291; C1752; J0878; P9016; P9047; P9059; Q9967